=== PATIENT | female | born 1970 | race Caucasian/White ===

== ENCOUNTER → 2017-11-27 08:33 | Outpatient (CLI) | payer BC, SELFPAY ==
--- NOTE | 2017-11-27 08:39 | US_ITS ---
US thyroid HISTORY: Tender area in the mid neck. History of tongue cancer ITS.REASON: NECK PAIN, HX THROAT CA ORDERING PHYSICIAN: Bebo Deutsch MD PATIENT AGE: 47 years COMPARISON: None FINDINGS: Right lobe: 4.1 x 1 x 1.5 cm. Homogeneous echogenicity. No nodules apparent. Left lobe: 3.9 x 1.3 x 1.5 cm. Homogeneous echogenicity. No mass or nodule Isthmus: The isthmus itself has an unremarkable appearance. There is a cystic anterior to the left aspect of the isthmus of the thyroid gland. This measures approximately 4 x 7 mm and is of questionable clinical significance and etiology. IMPRESSION: 1. Small cystic area along the left para median area of the isthmus at 7 x 4 mm of uncertain etiology and clinical significance. 2. Otherwise negative thyroid ultrasound
== END ==
PROVIDERS: Family Provider Family Medicine; PCP Family Medicine; Visit Provider Family Medicine
DX: M54.2 Cervicalgia (principal); Z85.810 Personal history of malignant neoplasm of tongue
CPT/HCPCS: 76536

== ENCOUNTER → 2018-02-09 10:47 | Outpatient (CLI) | payer BC, SELFPAY ==
--- NOTE | 2018-02-09 10:56 | XR_ITS ---
DEXA SCAN.-BONE DENSITY STUDY FOREARM AND HIPS HISTORY: Postmenopausal female. 47-year-old . Hypothyroidism. Left ovary removed. Low calcium intake. Taking Synthroid TECHNIQUE: DEXA scan hip and lumbar spine The most complete data summary and color graphic presentation of the today's ( and any prior ) DEXA findings are available in PACS. Definition and treatment guidelines included. COMPARISON: None listed Lumbar spine not utilized due to posterior fusion., Extensive metal FOREARM: low range of normal values overall Distal radiusUD at the metaphysis:. Normal T score 1.4; BMD 0.534. Distal 33% radius: T-score -0.8. Low normal reflecting BMD 0.819 Radius total, overall with T score 0.5 and BMD 0.713 . HIPS: Femoral neck density is best predictor of hip fracture risk . . Both femoral neck with normal bone density Right femoral neck demonstrates the lowest T score -0.9 with BMD0.918 g/cm sq . . Left femoral neck T score -0.8 Averaging all regions of the hips yields today's Hip Mean T score -0.2 with BMD0.977 g/cm sq . = Normal density -------IMPRESSION 1. FOREARM: Normal overall bone density radius . Overall radius with normal T-score -0.5 Distal radiusUD at the metaphysis and distal third of the radius normal as well 2. HIPS: Normal bone density. Overall T score -0.2. Lowest right femoral neck T score -0.9 Note:. Technologist did not utilize lumbar spine due to history of extensive spinal fusion.. WHO criteria for post-menopausal, Women: Normal: T-score at or above -1 SD Osteopenia: T-score between -1 and -2.5 SD Osteoporosis: T-score at or below -2.5 SD
== END ==
PROVIDERS: Family Provider Family Medicine; PCP Family Medicine; Visit Provider Family Medicine
DX: M85.80 Other specified disorders of bone density and structure, unspecified site (principal)
CPT/HCPCS: 77080

== ENCOUNTER → 2018-07-05 16:37 | Outpatient (CLI) | payer BC, SELFPAY ==
--- NOTE | 2018-07-05 16:45 | XR_ITS ---
EXAM: XR cervical spine 5V HISTORY: Neck pain, left arm numbness and healing ITS.REASON: PARESTHESIA OF LEFT UPPER EXTREMITY ORDERING PHYSICIAN: Bebo Deutsch MD PATIENT AGE: 48 years COMPARISON: None FINDINGS: There is mild reversal of the mid cervical lordosis which could be due to patient positioning or muscle spasm. There is 2 mm anterolisthesis of C4 on C5. Degenerative disc disease is present at C5-C6. Foraminal narrowing is noted on the right at C3-C4 and on the left at C4-C5. Multiple surgical clips are present within the neck on both sides. Interpedicular screws are present with connecting rods in the upper thoracic spine. No fracture or dislocation. No lytic or blastic change. IMPRESSION: Degenerative disc disease at C5-C6 with foraminal narrowing on the right at C3-C4 and on the left at C4-C5 Other nonacute findings as described above
== END ==
PROVIDERS: PCP Family Medicine; Visit Provider Family Medicine
DX: R20.2 Paresthesia of skin (principal)
CPT/HCPCS: 72050

== ENCOUNTER → 2018-09-12 10:20 | Outpatient (CLI) | payer BC, SELFPAY ==
--- NOTE | 2018-09-12 10:25 | NVE_ITS ---
Venous Exam Indications: 782.0 Disturbance of skin sensation. 729.5 Pain in limb. IMPRESSIONS No evidence of deep or superficial vein thrombosis involving the veins of the left upper extremity Left upper extremity venous duplex. Doppler flow study including spectral analysis, color and eng scale imaging. Tables: Venous flow and imaging: + + + Location Flow properties + + + Left internal jugular Normal phasicity; spontaneous; compressible + + + Left subclavian Normal phasicity; spontaneous; normal augmentation; compressible + + + Left axillary Normal phasicity; spontaneous; normal augmentation; compressible + + + Left brachial Normal phasicity; spontaneous; normal augmentation; compressible + + + Left cephalic Normal phasicity; spontaneous; normal augmentation; compressible + + + Left basilic Normal phasicity; spontaneous; normal augmentation; compressible + + + Left radial Compressible + + + Left ulnar Compressible + + + Right subclavian Normal phasicity; spontaneous; normal augmentation; compressible + + + (Report amended ) Electronically signed by: Lucio Hoffmann [id number]
== END ==
PROVIDERS: PCP Family Medicine; Visit Provider Family Medicine
DX: R20.2 Paresthesia of skin (principal)
CPT/HCPCS: 93971

== ENCOUNTER → 2019-06-28 14:06 | Outpatient (CLI) | payer BC, SELFPAY ==
--- NOTE | 2019-06-28 14:14 | CT_ITS ---
PROCEDURE: CT HEAD/BRAIN WO/W CON CLINICAL INDICATION: Dysphagia, history of oral pharyngeal cancer, evaluate for possible metastatic disease COMPARISON: No exams were available for comparison TECHNIQUE: IV Contrast: 100ML OPITRAY 320 Axial images obtained. All CT scans at the facility use one or more dose reduction, viz: automated exposure control, ma/kV adjustment per patient size (including targeted exams where dose is matched to indication, i.e. head), or iterative reconstruction technique. FINDINGS: No midline shift, mass effect, intracranial hemorrhage, hydrocephalus, or extra-axial fluid collection is evident. No enhancing lesions are evident. The the the calvarium has an unremarkable appearance. No mastoid effusion no sinus air-fluid level IMPRESSION: Negative CT head without and with contrast. No evidence of metastatic disease Dictated by: Lucio Hoffmann MD 06/28/2019 16:53 Electronically signed by Lucio Hoffmann MD in [facility] 06/28/2019 16:53
--- NOTE | 2019-06-28 14:14 | CT_ITS ---
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 All CT scans at the facility use one or more dose reduction, viz: automated exposure control, ma/kV adjustment per patient size (including targeted exams where dose is matched to indication, i.e. head), or iterative reconstruction technique. FINDINGS: There are no previous exams available for comparison. There is given history of the oral pharyngeal cancer but no previous exams available. The visualized sinuses, globes, and nasopharynx have an unremarkable appearance. There are surgical clips along the neck on both sides. There is asymmetric prominence of the soft tissues along the roof of the mouth on the right and could actually be partial volume averaging from prominence of the soft tissues of the tongue at this area as suggested on the coronal reformatted images. Please correlate with physical exam and patient's surgical history. There are scattered surgical clips throughout the neck. The uvula, epiglottis, glottic region, thyroid gland, and parotids are unremarkable. Surgical clips are present in the submandibular regions. It appears that the submandibular glands have been removed. No dominant cervical adenopathy is evident. There is scattered small cervical lymph nodes on both sides which are nonspecific. Postsurgical changes of the upper thoracic spine with artifact from metallic hardware. IMPRESSION: 1. Postsurgical changes of the as described above with multiple surgical clips present. Submandibular glands are not visualized and presumed to have been removed. 2. Asymmetric prominence of the right aspect of the tongue which could be asymmetric prominence of the tongue on the right or prior surgery of the tongue on the left. Please correlate with surgical history and direct visualization. 3. Scattered small cervical nodes but no dominant adenopathy or other significant anomaly Dictated by: Lucio Hoffmann MD 06/28/2019 16:59 Electronically signed by Lucio Hoffmann MD in [facility] 06/29/2019 08:30
== END ==
PROVIDERS: PCP Family Medicine; Visit Provider Nurse Practitioner
DX: J02.9 Acute pharyngitis, unspecified (principal); R13.10 Dysphagia, unspecified; Z85.819 Personal history of malignant neoplasm of unspecified site of lip, oral cavity, and pharynx
CPT/HCPCS: 70470; 70491; Q9967

== ENCOUNTER → 2019-11-05 09:37 | Outpatient (CLI) | payer BC, SELFPAY ==
--- NOTE | 2019-11-05 09:37 | US_ITS ---
PROCEDURE: US SOFT TISSUE HEAD AND NECK CLINICAL INDICATION: posterior neck lesion Palpable abnormality at the posterior on the left COMPARISON: CT SOFT TISSUE NECK W CON from 06/28/2019 FINDINGS: There is an oval area hypoechogenicity in the subcutaneous tissues in the left neck corresponding to the palpable abnormality which measures 1.9 by 0.5 by 2.6 cm. This is well-circumscribed and may represent an elongated lymph node. No other significant anomalies are evident. IMPRESSION: Hypoechoic nodule corresponding to the palpable abnormality as described above which may represent an elongated lymph Dictated by: Lucio Hoffmann MD 11/05/2019 13:53 Electronically signed by Lucio Hoffmann MD in [facility] 11/05/2019 13:53
== END ==
PROVIDERS: PCP Family Medicine; Visit Provider Surgery
DX: L98.9 Disorder of the skin and subcutaneous tissue, unspecified (principal)
CPT/HCPCS: 76536

== ENCOUNTER → 2020-02-04 12:04 | Outpatient (CLI) | payer BC, SELFPAY ==
[2020-02-04 20:13] LABS: Coronavirus 19 IgG Antibody Negative (Negative)
[2020-02-04 20:14] LABS: Coronavirus 19 IgM Antibody Negative (Negative)
== END ==
PROVIDERS: Visit Provider Surgery
DX: Z01.84 Encounter for antibody response examination (principal)
CPT/HCPCS: 36415; 86328

== ENCOUNTER 2020-02-05 07:29 | Day surgery (SDC) | payer BC, SELFPAY ==
--- NOTE | 2020-02-03 12:02 | SUR.PREOP ---
02/03/2020 @ 1200--PHONE CALL MADE TO PATIENT. PATIENT UNDERSTANDS THAT LAB WORK AND COVID TESTING NEEDS TO BE COMPLETED @ 0900 ON 02/04/2020. PATIENT UNDERSTANDS IF LAB WORK AND COVID-19 TESTS ARE NOT COMPLETED BY 12PM ON THAT DATE, THE SURGERY SCHEDULED WILL BE CANCELLED AND RESCHEDULED FOR ANOTHER TIME.
[2020-02-04 09:02] VITALS: BMI 36.6
[2020-02-05] VITALS (8 sets, daily range): BP systolic 109–139; BP diastolic 63–85; PULSE 61–86; RESP 14–18; TEMP 36.2–36.6; O2SAT 96–100
--- NOTE | 2020-02-05 08:10 | P.PN_ITS ---
[facility] Anesthesia Checklist - Patient Identification Patient Identification: Arm Band - Structural Data Admitted From: Home Planned Operative Procedure/s: excision neck lipoma Consent for Planned Operative Procedure(s) Verified: Yes Verified Documents: Surgical Consent, History and Physical - NPO Status Verified Time NPO: 00:00 - Additional verifications Anesthesia Reactions: No (slow to wake, n/v) Hx Blood Transfusions: Yes Blood Transfusion Reaction: No - Airway Assessment C-Spine Mobility Assessed: Yes (mp2) TMJ Mobility Assessed: Yes Dentition: Good Dentition - Neurological Assessment Level of Consciousness: Awake, Alert - Anesthesia Plan Anesthesia Risk discussed: Yes ASA Class: II Anesthesia Type: General [facility] History I have reviewed the patient's past medical history: Yes Medical History: Reports:: Asthma, Cancer (tongue), Lung Disease Denies:: Diabetes Mellitus Type 1, Diabetes Mellitus Type 2, Hypertension, Internal Pacemaker, MRSA, Seizures *Have you ever received a pneumonia vaccine?: No *Have you received a flu vaccine this season?: Yes Other Medical History: Reports: Hypothyroidism, Other. Denies: Blood Transfusion Reaction Anesthesia experience/problems:: ponv, slow to wake Laterality Cases: Right: Arthroscopy Knee, Arthroscopy Shoulder, Bilateral: Tonsillectomy Other Surgeries: Yes: Cancer Surgery, Colonoscopy, Hysterectomy-Total, Hysterectomy-Partial, Tubal Ligation, Other. No: Pacemaker Amputation: No Fractures: No - *Social History Educational Level: Completed Graduate School Smoking Status: Never smoker Alcohol Intake: never Alcohol Intake Frequency:: other Substance Use Type: denies use *Occupational Status:: employed Housing: house Household Members: spouse *Travel in the last 8 weeks: None Family Hx:: Unable to obtain
--- NOTE | 2020-02-05 09:33 | HMH.OPNOTE ---
Date of procedure: 02/05/20 Pre-op Diagnosis:: Lipoma cervicothoracic neck area Post-op Diagnosis:: Same Procedure performed:: Excision of deep lipoma from left cervicothoracic region (excisional length 3.5 cm) with intermediate complexity closure Surgeon:: Armen Kaba MD PERSONAL INJURY PARALEGAL:: Kayden Carl Anesthesia: LMA Estimated blood loss (mL): 5 Clinical Note:: Patient presents for removal of lipoma from the left cervicothoracic neck region. I saw her as a referral from Dr. Everett for possible lipoma on the back of the neck. Patient states that this has been present for an undetermined amount of time and relatively asymptomatic. However, complicating factor is that she had a history of squamous cell carcinoma of the tongue and underwent resection as well as left radical neck resection 3 years ago at [facility]. I had her undergo ultrasound of the area and this reveals findings less consistent with a lipoma but more consistent with elongated lymph node . The area is located in the left of the midline at the upper thoracic area. Given her history and findings on sonogram were consistent with an elongated lymph node I had her follow-up with her head neck surgeon first as she had an appointment several days after my last appointment. She did obtain copies of her ultrasound report and images. She states that he was not terribly concerned with this area and felt it was more of a potential lipoma. Operative findings:: Consistent with subcutaneous benign lipoma Operative note:: Patient was taken to the operating room. She was positioned in a supine position. General anesthesia was induced. She was then repositioned in right lateral position. The area was prepped and draped. Skin was marked with a skin marker. Skin incision was made using #15 scalpel blade. Dissection was carried down through deep dermis and superficial subcutaneous tissues using electrocautery. Well-circumscribed lobulated fat lobule consistent with benign lipoma was encountered. This was somewhat elongated. Using Metzenbaum dissection it was dissected free from surrounding tissues. It was removed in somewhat of a piecemeal fashion but in its entirety and sent off as specimen. Hemostasis was achieved with electrocautery. Local anesthetic was infiltrated. Deep dermal tissues were closed with interrupted 3-0 Vicryl sutures. Skin was closed with 4-0 Monocryl in a subcuticular fashion. Occlusive dressing was applied. Condition: stable Disposition: PACU Specimens:: Lipoma Complications:: None immediately apparent
--- NOTE | 2020-02-05 09:37 | P.PN_ITS ---
[facility] Anesthesia Record Part I Intake, IV Amount: 800 Estimated blood loss (mL): 10 Urine output (mL): 0 Blood Pressure: 134/72 SaO2: 97 Pulse Rate: 69 Respiratory Rate: 16 Temperature: 97.2 F Patient is:: Drowsy, Stable Stable to PACU at:: 09:35
[2020-02-06 10:19] VITALS: BP 139/74; PULSE 84; TEMP 36.5
--- NOTE | 2020-02-06 10:19 | P.PN_ITS ---
[facility] Anesthesia Record Part II Discharge Time: 09:56 Destination: Surgical Day Care (OP Surgery) PACU nurse assessment reviewed?: Yes Patient Condition:: Good Anesthesia Complications:: None Swallowing reflex intact?: Yes Cyanosis?: No Blood Pressure: 139/74 Pulse Rate: 84 Temperature: 97.7 F Mental Status: Alert & Oriented Pain level:: 0 Nausea and/or vomitting:: None Intake, IV Amount: 0
== END 2020-02-05 10:34 | disposition home or self-care (01) ==
PROVIDERS: PCP Family Medicine; Visit Provider Surgery
PROC: (CPT 11424; principal; 2020-02-05 09:00)
DX: D17.0 Benign lipomatous neoplasm of skin and subcutaneous tissue of head, face and neck (principal); Z85.810 Personal history of malignant neoplasm of tongue; Z88.5 Allergy status to narcotic agent; Z88.0 Allergy status to penicillin; J45.909 Unspecified asthma, uncomplicated; E03.9 Hypothyroidism, unspecified; Z90.89 Acquired absence of other organs; Z87.39 Personal history of other diseases of the musculoskeletal system and connective tissue; Z90.710 Acquired absence of both cervix and uterus; Z82.49 Family history of ischemic heart disease and other diseases of the circulatory system; Z80.9 Family history of malignant neoplasm, unspecified
CPT/HCPCS: 11424; 12041; 96374

== ENCOUNTER → 2020-05-13 14:25 | Outpatient (CLI) | payer BC, SELFPAY ==
--- NOTE | 2020-05-13 | US_ITS ---
PROCEDURE: US EXTREMITY LT LIMITED CLINICAL INDICATION: AXILLARY LYMPHADENOPATHY COMPARISON: US US EXTREMITY RT LIMITED from 05/13/2020 FINDINGS: Ultrasound performed of the left axilla. There are a few small nodes present in the axilla measuring 12 mm and 17 mm. The mantle of the lymph node is thin. No abnormal fluid collection. IMPRESSION: Nonspecific small left axillary lymph nodes Dictated by: Lucio Hoffmann MD 05/13/2020 15:55 Lucio Hoffmann MD in [place] 05/13/2020 15:55
--- NOTE | 2020-05-13 | US_ITS ---
PROCEDURE: US EXTREMITY RT LIMITED CLINICAL INDICATION: AXILLARY LYMPHADENOPATHY History of tongue cancer COMPARISON: No exams were available for comparison FINDINGS: Small nodes are present in the right axilla. A 5 mm node is present. There is a fullness in the right axillary region which is reported. This does not correspond to an enlarged lymph node that may represent fatty tissue. No abnormal fluid collections. IMPRESSION: 5 mm node in the axilla demonstrated. No obvious adenopathy. Dictated by: Lucio Hoffmann MD 05/13/2020 16:03 Lucio Hoffmann MD in [place] 05/13/2020 16:03
== END ==
PROVIDERS: PCP Family Medicine; Visit Provider Nurse Practitioner
DX: R59.0 Localized enlarged lymph nodes (principal)
CPT/HCPCS: 76882

== ENCOUNTER → 2020-05-15 13:28 | Outpatient (CLI) | payer BC, SELFPAY ==
--- NOTE | 2020-05-15 13:29 | CA_ITS ---
APPROVED REPORT EXAM: Comprehensive 2D, Doppler, and color-flow Echocardiogram Crystal Cutter: Selene Ambrose RDCS Ht: 5 ft 2 in Wt: 213lbs BSA: 1.96 BP: 119/77 mmHg Indications: ABN EKG,PRE OP EVAL,SOA 2D Dimensions LVOT 2.10 cm (M/F) 1.5-2.5 M-Mode Dimensions RVDd 2.44 cm (0.9-2.6) LVDd 4.87 cm (3.5-5.7) LVDs 3.43 cm (3.5-5.7) IVSd 0.69 cm (0.6-1.1) PWd 0.76 cm (0.6-1.1) EF (Teich) 56.40% FS 29.60% EDV (Teich) 111.20 mL ESV (Teich) 48.50 mL LV Diastology E/A Ratio 1.33 Mitral Valve MV A Velocity 65.00 (40-130 cm/s) Left Ventricle Left atrium is normal size, left ventricle is normal size, there is no concentric left ventricular hypertrophy, visually estimated ejection fraction 55% with no regional wall motion abnormality. Diastolic parameters are within normal range. Right Ventricle Right atrium and right ventricle are normal size and contractility. Aortic Valve Aortic valve is grossly normal, there is no aortic stenosis or aortic insufficiency. Mitral Valve Mitral valve is grossly normal, there is no mitral stenosis, there is mild mitral regurgitation. Tricuspid Valve Tricuspid valve grossly normal, there is trace tricuspid regurgitation, tricuspid regurgitation jet velocity is inadequate for calculation of the right ventricular systolic pressure. Pulmonic Valve Pulmonic valve is poorly visualized. Great Vessels Aortic root is normal size. Pericardium No significant pericardial effusion noted. Conclusion 1. Normal left ventricular size, preserved left ventricular systolic function, visually estimated ejection fraction 55% with no regional wall motion abnormality, diastolic parameters within normal range. 2. Mild mitral and trace tricuspid regurgitation. 3. No significant pericardial effusion noted. Electronically signed by : Larry Good, 05/15/2020 14:03:43
--- NOTE | 2020-05-15 13:29 | CA_ITS ---
APPROVED REPORT Exam: Exercise Treadmill Technologist: Ana Mccann, Ht: 5 ft 2 in Wt: 213 lbs BSA: 1.96 m2 HR: 71 bpm BP: 129/61 mmHg Rhythm: SINUS RHYTHM Medical History Medications: Levothyroxine,,,,, Albuterol,,,,, LoraTADINE,,,,, DicyCLOMINE,,,,, Singulair,,,,, Methocarbamol,,,,, RHINOCORT,,,,, Cardiac Risk Factors: FHX of CAD Stress Test Details Test: Michael HR Resting HR: 75 bpm Max Heart Rate (APMHR): 170 bpm Max HR Achieved: 149 bpm Target HR (85% APMHR): 144 bpm % of APMHR: 87 Recovery HR: 134 bpm BP Resting BP: 129.0/61.0 mmHg Max BP: 190.0/82.0 mmHg Recovery BP: 190.0/82.0 mmHg ECG Resting ECG: SINUS RHYTHM Clinical Exercise duration: 06:25 min Highest Stage Achieved: Exercise capacity: 7.0 METs Stress ECG Conclusion MICHAEL PROTOCOL COMPLETED. MAX HEART RATE 149 BPM WHICH IS 88% OF PM FOR AGE. MAX BP 190/82. METS = 7.0. TEST STOPPED DUE TO SHORTNESS OF BREATH. NO CHEST PAIN. SHORTNESS OF BREATH AT PEAK EXERCISE. NO ECTOPY. LESS THAN 1.5MM ST DEPRESSION. GXT ONLY. AVERAGE EXERCISE CAPACITY. APPROPRIATE BP RESPONSE. NO ECTOPY. NO CHEST PAIN. Electronically signed by : Larry Good, 05/18/2020 22:25:43
== END ==
PROVIDERS: PCP Family Medicine; Visit Provider Urology
DX: Z01.810 Encounter for preprocedural cardiovascular examination (principal); R94.31 Abnormal electrocardiogram [ECG] [EKG]; R00.2 Palpitations; R06.00 Dyspnea, unspecified; R60.0 Localized edema
CPT/HCPCS: 93017; 93306

== ENCOUNTER → 2020-11-13 19:14 | Outpatient (CLI) | payer BC, SELFPAY | PROVIDERS: PCP Family Medicine; Visit Provider Family Medicine | DX: I49.9 Cardiac arrhythmia, unspecified (principal) | CPT/HCPCS: 93225; 93226 ==

== ENCOUNTER → 2020-11-17 13:38 | Outpatient (CLI) | payer BC, SELFPAY ==
--- NOTE | 2020-11-17 | US_ITS ---
APPROVED REPORT Exam Type: Ankle to Brachial Index Associate Justice: RT Enrrique(R) Indications Claudication: Right Rest Pain: Right Pressures/Indices Right Indices Left Indices Brachial 129.00 mmHg Brachial 130.00 mmHg Low Thigh 139.00 mmHg 1.07 Low Thigh 140.00 mmHg 1.08 Calf 140.00 mmHg 1.08 Calf 139.00 mmHg 1.07 Ankle(PT) 160.00 mmHg 1.23 Ankle(PT) 152.00 mmHg 1.17 Ankle(DP) 143.00 mmHg 1.10 Ankle(DP) 144.00 mmHg 1.11 Digit 120.00 mmHg 0.92 Digit 79.00 mmHg 0.61 Findings RT LIZ=1.2 LT TBI=1.2 RT TBI=0.9 LT TBI=0.6 Normal pulses Normal waveforms Conclusion RT LIZ=1.2 LT TBI=1.2 RT TBI=0.9 LT TBI=0.6 Normal pulses Normal waveforms Electronically signed by : Lucio Hoffmann MD 11/17/2020 16:37:26
== END ==
PROVIDERS: PCP Family Medicine; Visit Provider Family Medicine
DX: R60.0 Localized edema (principal); I70.211 Atherosclerosis of native arteries of extremities with intermittent claudication, right leg
CPT/HCPCS: 93923

== ENCOUNTER → 2020-11-26 17:19 | Outpatient (CLI) | payer BC, SELFPAY | PROVIDERS: PCP Family Medicine; Visit Provider Urology | DX: G47.33 Obstructive sleep apnea (adult) (pediatric) (principal) | CPT/HCPCS: G0399 ==

== ENCOUNTER 2021-01-14 08:00 | Outpatient (RCR) | payer BC, SELFPAY ==
--- NOTE | 2020-11-25 15:53 | HMH.PTOPWND ---
Rehab Outpt Wound Evaluation Rehab OP Wound Evaluation Start: 11/25/20 15:20 Freq: Status: Active Protocol: Document 11/25/20 15:44 BERTO (Rec: 11/25/20 15:52 PHORNE [id number]) Electronically Signed By Kiko Fulton, PT 11/25/20 15:44 Subjective/History History History Pt is 50 yowf who presents with c/o LE jayla, R > L, x 1-2 yrs overall and worse x ~ 2-3 mos. She reports some pain in B LE, worse in the lower legs . She also reports increased tenderness to palpation worse in B gaitor area. She has extensive surgical hx with T4- L5 PLIF due to scoliosis, cervicothoracic lipoma removal , 42 neck lymph nodes removed due to oropharyngeal cancer, ELMER, and one oophorectomy. She reports intermittent numbness /tingling in the R great toe. Subjective Subjective Pain 3/10 in lower legs. 2/4 tenderness to palpation noted in B gaitor area of lower legs . Lymphedema Eval Classification of Lymphedema Secondary Lymphedema Yes: multiple surgeries Stemmer's sign Stemmer's Sign no Stage of Lymphedema Lymphedema stages Stage II (Pitting edema, increased fibrosis w/ decreased pitting) Skin Changes Dry Skin Yes Skin Folds Yes Redness Yes Other Changes Yes Pain Scale Pain Scale (0-10) 3 Radiation Therapy Has received radiation therapy no Chemo Therapy Has received chemo therapy no Affected Extremities Areas Affected by Lymphedema/Edema Abdomen,Right Lower Extremity, Left Lower Extremity Manual Lymphatic Drainage Treatment Area MLD Treatment Area Abdomen,Right Lower Extremity, Left Lower Extremity Wound Problems/Impairments Impairments Problems/Impairmments Palpation Tenderness,Impaired Endurance,Impaired Walking, Impaired Standing,Impaired Recreational Activities, Increased Edema,Lymphedema Present,Subjective C/O Pain, Impaired Self Care/Self Management Prognosis Rehab Potential
--- NOTE | 2020-12-28 16:22 | HMH.RHREAS ---
Rehab Reassessment Rehab OP Re-assessment Start: 12/28/20 16:18 Freq: Status: Active Protocol: Document 12/28/20 16:19 BERTO (Rec: 12/28/20 16:22 PHOANGELA [id number]) Electronically Signed By Kiko Fulton, PT 12/28/20 16:19 Rehab Re-assessment Subjective Subjective Pt reports, I don't have as much pain and I have a lot less tenderness in both of my legs. Objective Objective Notes Cirucmferential measurements: R LE total is -6.0 cm since initial eval. L LE total is -7.0 cm since initial eval. Assessment Progress Assessment Progressing as Expected Assessment Notes Edema less hard, more doughy at this time which denotes decreased fibrotic edema. Much less pain with palpation throughout B lower legs. Edema continues to improve steadily . Patient goals met ST,2,3,4 Goals Not Met LT,2,3,4,5,6,7 Revised Goals none Plan Plan Continue per initial POC. Frequency of Therapy 2 x/wk Duration of therapy 8 wks Time and Billing Re-Eval Time 15 Re-Eval Billing Units 1 PHYSICIAN CERTIFICATION: I certify the specified therapy services for Eleonora Hernandez are required, authorized, and reviewed every 30 days.
== END 2021-01-14 08:05 | disposition home or self-care (01) ==
LOC: PT 08:00
PROVIDERS: PCP Family Medicine; Visit Provider Urology
DX: I89.0 Lymphedema, not elsewhere classified (principal); R60.0 Localized edema; M79.604 Pain in right leg
CPT/HCPCS: 97140; 97162; 97164

== ENCOUNTER → 2021-03-03 12:55 | Outpatient (CLI) | payer BC, SELFPAY ==
--- NOTE | 2021-03-03 12:58 | FL_ITS ---
PROCEDURE: FL BARIUM SWALLOW MODIFIED CLINICAL INDICATION: TOUNGE CANCER COMPARISON: No exams were available for comparison TECHNIQUE: Patient administered varying consistencies of barium contrast, while viewed in lateral position under real-time fluoroscopy with cine recording. FLUOROSCOPY TIME:2 minutes and 11 seconds The study was performed in conjunction with speech pathologist. Please see that report & recommendations. FINDINGS: Patient was given varying consistencies of barium. Multiple surgical clips are present in the neck. No impairment apparent. No aspiration or penetration. IMPRESSION: Unremarkable modified barium swallow. Please see speech pathologist report and recommendations. Dictated by: Lucio Hoffmann MD 03/04/2021 10:05 Lucio Hoffmann MD in [place] 03/04/2021 10:05
--- NOTE | 2021-03-03 14:23 | HMH.SLMBS2 ---
Speech & Language Evaluation Speech/Language Mod Barium Swallow Start: 03/03/21 14:17 Freq: once Status: Complete Protocol: Document 03/03/21 14:17 SHALINI (Rec: 03/03/21 14:22 SHALINI [id number]) General Information General Current Food Consistancy Regular,Thin Liquids Dentition Good Dentition Oxygen Status Room Air Facial Symmetry Symmetrical Patient Orientation Person,Place,Time,Situation Ability to Follow Directions Excellent Communication Ability No Impairment MBS Recommendations Diet Dietary Recommendations Regular,Thin Liquids Treatment/Strategies Strategy/Precaution Recommend Sitting Upright (90 deg),Small Bites and Sips,Alternate Liquids/Solids Referrals/Other Recommended Referrals GI Consult Other Recommendations Recommended GI consult due to Ms. Hernandez reporting she often has food get stuck . She has a history of reflux but she is regurgitating her food and drinks over the last couple of months. Mod Barium Swallow Impressions Summary and Impressions Oral Phase Impression No Impairment (WFL) Oral Phase Summary Ms. Hernandez was given the following consistencies: thins via spoon, straw, and open cup, pudding, pureed, mechanical soft, regular, mixed, and pill with thin wash . No oral phase impairments noted. Pharyngeal Phase Impression No Impairment (WFL) Pharyngeal Phase Summary No pharyngeal phase impairments noted. Speech/Language MBS Assessment/Goals/Plan Assessment Date of Evaluation: 03/03/21 Evaluation Type Initial Certification Assessment/Problems Dysphagia Does Patient Qualify for Service No Qualify/Failure Comment No overt signs or symptoms of dysphagia noted in oral or pharyngeal phase of swallowing . Plan Pt/Guardian verbally ack understanding Yes of dx/prognosis/goals G -code Required No Mod Barium Swallow Setup Exam Setup Radiologist Lucio Hoffmann Level of Consciousness Awake,Alert,Appropriate, Follows Commands Position (degrees) 90 Mod Barium Swallow-Lat View Textures Lateral View Food Presentation Thin Liquid via Spoon,Thin
== END ==
PROVIDERS: PCP Family Medicine; Visit Provider Family Medicine
DX: R13.10 Dysphagia, unspecified (principal)
CPT/HCPCS: 70371; 92611

== ENCOUNTER → 2021-05-20 13:44 | Outpatient (CLI) | payer BC, SELFPAY ==
--- NOTE | 2021-05-20 13:47 | CT_ITS ---
Procedure: CT ANGIO NECK CT CT ANGIO HEAD CLINICAL HISTORY: HX OF OROPHARYNGEAL CANCER Numbness and tingling in bilateral arms and COMPARISON: CT CT SOFT TISSUE NECK W CON from 06/28/[address] ANGIO HEAD from 05/20/2021 TECHNIQUE: IV Contrast: 100ml Isovue 370 Axial images obtained with sagittal and coronal reformats. All CT scans at the facility use one or more dose reduction, viz: automated exposure control, ma/kV adjustment per patient size (including targeted exams where dose is matched to indication, i.e. head), or iterative reconstruction technique. FINDINGS: CTA neck: The aortic arch and great vessels have an unremarkable appearance. No carotid for vertebral stenosis significant plaque ulceration or dissection. CTA head: No aneurysm, AVM, major intracranial occlusive process or dissection evident. Vertebral basilar system has an unremarkable appearance. Lung apices are clear. Postsurgical changes are present in the neck as previously described. There are few scattered small cervical lymph nodes. No recurrence neck mass apparent. No enhancing brain lesions apparent. No midline shift or mass effect. No evidence of sinus thrombosis IMPRESSION: Negative CTA of the neck. Negative CTA of the head Dictated by: Lucio Hoffmann MD 05/21/2021 08:37 Lucio Hoffmann MD in [place] 05/21/2021 08:37
== END ==
PROVIDERS: PCP Family Medicine; Visit Provider Family Medicine
DX: Z85.818 Personal history of malignant neoplasm of other sites of lip, oral cavity, and pharynx (principal); R13.10 Dysphagia, unspecified
CPT/HCPCS: 70496; 70498; Q9967

== ENCOUNTER → 2021-06-02 09:46 | Outpatient (CLI) | payer BC, SELFPAY ==
--- NOTE | 2021-06-02 09:57 | MR_ITS ---
PROCEDURE: MR CERVICAL SPINE WO/W CON CLINICAL INDICATION: BILATERAL UPPER EXTREMITY NUMBNESS AND TINGLING COMPARISON: CT CT ANGIO NECK from 05/20/2021 TECHNIQUE: Standard multiplanar multiecho sequences are performed without and with contrast. 3-D MIP and myelographic images are also rendered and reviewed FINDINGS: Unremarkable craniocervical junction. C2-C3: Minimal central disc protrusion versus prominent posterior longitudinal ligament without impingement. Mild left foraminal narrowing. C3-C4: 3 mm anterolisthesis of C3 with mild bulging disc. There is a small right paracentral/foraminal disc osteophyte complex at the uncovertebral region causing mild right lateral recess narrowing and right-sided foraminal narrowing. Borderline canal stenosis at this level at 11 mm. Degenerative disc disease. C4-C5: 3 mm anterolisthesis of C4. Small broad-based left foraminal and lateral disc osteophyte complex causing severe left-sided foraminal narrowing. There is mild left lateral recess narrowing as well. Degenerative disc disease. C5-C6: 2 mm retrolisthesis of C5 with mild broad-based bulging disc. Mild bilateral foraminal narrowing from facet and uncovertebral hypertrophy. C6-C7: Minimal bulging disc. C7-T1: Unremarkable. In the upper thoracic spine there is a bulging disc at T2-T3 with 3 mm anterolisthesis of T2. Artifact is present from inter pedicular screws in the upper thoracic spine. No acute fracture or dislocation of the cervical spine. Post enhanced images are obtained showing no abnormal enhancement. The spinal cord has an unremarkable appearance. IMPRESSION: Multilevel cervical spondylosis with multilevel degenerative disc disease and disc osteophyte complexes with borderline canal stenosis. Please see above for detailed description at each level. Dictated by: Lucio Hoffmann MD 06/03/2021 18:17 Lucio Hoffmann MD in [place] 06/03/2021 18:17
== END ==
PROVIDERS: PCP Family Medicine; Visit Provider Family Medicine
DX: M50.30 Other cervical disc degeneration, unspecified cervical region (principal)
CPT/HCPCS: 72156; 76376; A9576

== ENCOUNTER → 2021-08-05 09:55 | Outpatient (CLI) | payer BC, SELFPAY ==
[2021-08-05 10:10] LABS: Basophils % 0.4 % (0.1-2.0); Eosinophils # 0.1 K/mm3 (0.0-0.4); Eosinophils % 1.2 % (0.1-12.0); Hematocrit 40.8 % (37.0-47.0); Hemoglobin 13.9 g/dL (12.2-16.2); Lymphocytes % 24.1 % (10-50); Mean Corpuscular Hemoglobin 31.3 pg (27.0-31.2); Mean Platelet Volume 7.6 fl (7.4-10.4); Monocytes # 0.4 K/mm3 (0.1-1.0); Monocytes % 5.2 % (1.7-9.3); Neutrophils # 5.7 K/mm3 (1.8-7.8); Neutrophils % 69.1 % (37.0-80.0); Platelet Count 318 K/mm3 (142-424); Red Blood Count 4.44 M/mm3 (4.20-5.40); Red Cell Distribution Width 13.1 % (11.5-17.5); White Blood Count 8.3 K/mm3 (4.8-10.8)
== END ==
PROVIDERS: Visit Provider Nurse Practitioner
DX: Z20.822 Contact with and (suspected) exposure to COVID-19 (principal)
CPT/HCPCS: 36415; 85025; C9803; U0003; U0005

== ENCOUNTER → 2021-08-09 16:10 | Outpatient (CLI) | payer BC, SELFPAY | PROVIDERS: PCP Family Medicine; Visit Provider Nurse Practitioner Family | DX: G47.33 Obstructive sleep apnea (adult) (pediatric) (principal) | CPT/HCPCS: 94762 ==

== ENCOUNTER → 2021-09-21 11:37 | Outpatient (CLI) | payer BC, SELFPAY | PROVIDERS: PCP Family Medicine; Visit Provider Nurse Practitioner | DX: U07.1 COVID-19 (principal) | CPT/HCPCS: C9803; U0003; U0005 ==

== ENCOUNTER → 2021-12-02 08:53 | Outpatient (CLI) | payer BC, SELFPAY ==
--- NOTE | 2021-12-02 08:56 | XR_ITS ---
FINAL REPORT TECHNIQUE: Bone mineral density was calculated of the lumbar spine and hip. CLINICAL HISTORY: .post menopausal, pt has metal in spine FINDINGS: Using the one third radius the bone mineral density of the spine is 0.618 g/cm2, corresponding to T-score of -1.3. Using the left hip, the bone mineral density of the femoral neck is 0.862 g/cm2, corresponding to a T-score of -0.7. NOTE: T-score: Standard deviation compared with peak bone mass of young adult mean. *Following the recommendations of the International Society of Bone densitometry, classification of hip BMD is based on the lower of two T-scores; total hip or femoral neck. IMPRESSION: Diminished bone mineral density of the lumbar spine and left hip consistent with osteopenia. Major osteoporotic fracture of 4.0% and hip fracture of 0.1% according to FRAX data. Reviewed, Interpreted and Dictated by Armen Miller III, MD Transcribed by Corinna Luis Authenticated by Armen Miller III, MD on 12/02/2021 11:11:20 AM [facility]
== END ==
PROVIDERS: PCP Family Medicine; Visit Provider Nurse Practitioner
DX: Z78.0 Asymptomatic menopausal state (principal)
CPT/HCPCS: 77080

== ENCOUNTER → 2022-01-07 11:14 | Outpatient (CLI) | payer BC, SELFPAY ==
--- NOTE | 2022-01-07 11:18 | CA_ITS ---
FINAL REPORT TECHNIQUE: Right lower extremity venous duplex was performed with augmentation and compression. CLINICAL HISTORY: Patient states she has lump behind her right knee that's been there for months but it is getting bigger and causing more discomfort. She states the lump is palpable. Denies trauma. FINDINGS: Proper flow is seen throughout the deep venous system. There is no evidence of deep venous thrombosis. IMPRESSION: No deep venous thrombosis. No evidence of Bell's cyst right popliteal. Reviewed, Interpreted and Dictated by Paul Espinoza MD Transcribed by Leatha Dahl Authenticated by Paul Espinoza MD on 01/07/2022 01:24:38 PM [facility]
== END ==
PROVIDERS: PCP Family Medicine; Visit Provider Nurse Practitioner
DX: M25.561 Pain in right knee (principal)
CPT/HCPCS: 93971

== ENCOUNTER → 2022-05-12 06:54 | Outpatient (CLI) | payer BC, SELFPAY ==
[2022-05-12 18:35] LABS: Adenovirus,PCR Not Detected (NotDetected); Bordetella Pertussis Not Detected (NotDetected); Chlamydophila Pneumoniae, PCR Not Detected (NotDetected); Coronavirus 19, PCR Not Detected (NotDetected); Coronavirus 229E Not Detected (NotDetected); Coronavirus NL63 Not Detected (NotDetected); Coronavirus OC43 Not Detected (NotDetected); Coronovirus HKU1,PCR Not Detected (NotDetected); Human Metapneumovirus Not Detected (NotDetected); Influenza A, PCR Not Detected (NotDetected); Influenza AH1, 2009 Not Detected (NotDetected); Influenza AH1, PCR Not Detected (NotDetected); Influenza AH3,PCR Not Detected (NotDetected); Influenza B, PCR Not Detected (NotDetected); Mycoplasma Pneumoniae, PCR Not Detected (NotDetected); Parainfluenza 1, PCR Not Detected (NotDetected); Parainfluenza 2, PCR Not Detected (NotDetected); Parainfluenza 3, PCR Not Detected (NotDetected); Parainfluenza 4, PCR Not Detected (NotDetected); Respiratory Syncytial Virus Not Detected (NotDetected); Rhinovirus/Enterovirus Not Detected (NotDetected)
[2022-05-12 18:48] LABS: Basophils # 0.1 K/mm3 (0-0.2); Eosinophils # 0.1 K/mm3 (0.0-0.4); Eosinophils % 0.8 % (0.1-12.0); Hematocrit 44.1 % (37.0-47.0); Hemoglobin 14.8 g/dL (12.2-16.2); Lymphocytes # 2.4 K/mm3 (0.7-4.5); Lymphocytes % 21.4 % (10-50); Mean Corpuscular HGB Conc 33.6 g/dL (31.8-35.4); Mean Corpuscular Hemoglobin 31.4 pg (27.0-31.2); Mean Corpuscular Volume 93.6 fl (81-99); Mean Platelet Volume 8.9 fl (7.4-10.4); Monocytes # 0.8 K/mm3 (0.1-1.0); Monocytes % 7.5 % (1.7-9.3); Neutrophils # 7.7 K/mm3 (1.8-7.8); Neutrophils % 69.4 % (37.0-80.0); Platelet Count 385 K/mm3 (142-424); Red Blood Count 4.71 M/mm3 (4.20-5.40); Red Cell Distribution Width 12.8 % (11.5-17.5); White Blood Count 11.1 K/mm3 (4.8-10.8)
== END ==
PROVIDERS: PCP Nurse Practitioner; Visit Provider Nurse Practitioner
DX: Z20.822 Contact with and (suspected) exposure to COVID-19 (principal); J06.9 Acute upper respiratory infection, unspecified
CPT/HCPCS: 85025; 87581; 87632; 87798; C9803; U0003; U0005

== ENCOUNTER → 2022-07-19 10:55 | Outpatient (CLI) | payer BC, SELFPAY ==
--- NOTE | 2022-07-19 14:03 | XR_ITS ---
FINAL REPORT CLINICAL HISTORY: ASTHMA FINDINGS: TWO-VIEW CHEST The heart size is normal. The mediastinum is normal. The lungs are clear. There is no pneumothorax. There is long segment posterior fusion hardware bridging the upper thoracic to upper lumbar spine. A right shoulder prosthesis is identified. IMPRESSION: No acute cardiopulmonary process. Reviewed, Interpreted and Dictated by Paul Espinoza MD Transcribed by Corinna Luis Authenticated and . [facility]
--- NOTE | 2022-07-19 14:25 | ECG_ITS ---
APPROVED REPORT Exam: Resting ECG HR:68 bpm ECG Measurements Heart Rate 68 AXES GA 139 P 43 QRSd 91 QRS -3 QT 386 T 61 QTc 403 Conclusion SINUS RHYTHM LOW QRS VOLTAGE IN PRECORDIAL LEADS [QRS DEFLECTION < 1.0 mV IN CHEST LEADS] BORDERLINE ECG UNCONFIRMED REPORT Electronically signed by : Juancarlos Arriola MD 07/19/2022 19:41:51
== END ==
PROVIDERS: PCP Family Medicine; Visit Provider Family Medicine
DX: Z01.818 Encounter for other preprocedural examination (principal)
CPT/HCPCS: 71046; 93005

== ENCOUNTER → 2022-11-26 09:43 | Outpatient (CLI) | payer BC, SELFPAY ==
[2022-11-26 11:13] LABS: Basophils # 0.1 K/mm3 (0-0.2); Basophils % 0.9 % (0.1-2.0); Eosinophils # 0.1 K/mm3 (0.0-0.4); Eosinophils % 0.9 % (0.1-12.0); Hematocrit 42.7 % (37.0-47.0); Hemoglobin 13.9 g/dL (12.2-16.2); Lymphocytes # 1.7 K/mm3 (0.7-4.5); Lymphocytes % 22.9 % (10-50); Mean Corpuscular HGB Conc 32.6 g/dL (31.8-35.4); Mean Corpuscular Hemoglobin 30.9 pg (27.0-31.2); Mean Corpuscular Volume 94.9 fl (81-99); Mean Platelet Volume 8.8 fl (7.4-10.4); Monocytes # 0.5 K/mm3 (0.1-1.0); Monocytes % 6.4 % (1.7-9.3); Neutrophils % 68.9 % (37.0-80.0); Platelet Count 326 K/mm3 (142-424); Red Cell Distribution Width 12.8 % (11.5-17.5); White Blood Count 7.3 K/mm3 (4.8-10.8)
[2022-11-26 11:47] LABS: Alanine Aminotransferase 24 U/L (12-78); Albumin Level 3.9 g/dl (3.5-5.0); Albumin/Globulin Ratio 1.6 (1.1-1.8); Alkaline Phosphatase 84 U/L (38-126); Anion Gap 10.3 mEq/L (5-15); Aspartate Amino Transferase 27 U/L (14-36); Bilirubin,Total 0.5 mg/dl (0.2-1.3); Blood Urea Nitrogen 18 mg/dl (7-17); Calcium 8.6 mg/dl (8.4-10.2); Carbon Dioxide 31 mmol/L (22.0-30.0); Chloride 102 mmol/L (98-107); Chol/HDL Ratio 2.4 (1-3.5); Cholesterol 167 mg/dl (140-200); Estimated Glomerular Filt Rate 88 ml/min (>60); GFR (African American) 106 ML/MIN (>60); Globulin 2.5 g/dL (1.3-3.2); Glucose 73 mg/dl (74-100); HDL Cholesterol 69 mg/dl (40-60); Potassium 4.3 mmoL/L (3.5-5.1); Sodium 139 mmol/L (136-145); Total Protein,Serum 6.4 g/dl (6.3-8.2); Triglycerides 96 mg/dl (30-150); VLDL Cholesterol 19 mg/dL (0-40)
[2022-11-26 11:49] LABS: 25-OH Vitamin D, Total 34.4 ng/mL (30-100)
[2022-11-26 11:59] LABS: Direct LDL Cholesterol 64.67 mg/dL (100-129)
[2022-11-26 12:04] LABS: Free T4 (Free Thyroxine) 1.13 ng/dl (0.78-2.19)
== END ==
PROVIDERS: PCP Family Medicine; Visit Provider Family Medicine
DX: E03.9 Hypothyroidism, unspecified (principal); E55.9 Vitamin D deficiency, unspecified; R53.83 Other fatigue
CPT/HCPCS: 36415; 80053; 80061; 82306; 84439; 84443; 85025

== ENCOUNTER 2024-01-08 12:42 | Outpatient (CLI) | payer BC, SELFPAY ==
--- NOTE | 2024-01-08 12:50 | XR_ITS ---
FINAL REPORT CLINICAL HISTORY: CHEST CONGESTION COMPARISON: 07/19/2022 FINDINGS: 2 views of the chest were obtained . The heart is normal in size. The mediastinum is within normal limits. The lungs are clear. There is no pneumothorax. Osseous structures demonstrate spinal rods throughout the thoracic spine. There are postoperative changes of bilateral shoulder arthroplasty and of the lower cervical spine. IMPRESSION: No acute cardiopulmonary process. Reviewed, Interpreted and Dictated by Armen Miller III, MD Transcribed by Citlaly Mcnulty Authenticated and [facility]
--- NOTE | 2024-01-08 13:10 | ECG_ITS ---
APPROVED REPORT Exam: Resting ECG HR:72 bpm ECG Measurements Heart Rate 72 AXES IL 138 P 68 QRSd 106 QRS 96 QT 375 T 53 QTc 399 Conclusion SINUS RHYTHM BORDERLINE RIGHT AXIS DEVIATION [QRS AXIS > 90] LOW QRS VOLTAGE [QRS DEFLECTION < 0.5/1.0 mV IN LIMB/CHEST LEADS] ABNORMAL ECG UNCONFIRMED REPORT Electronically signed by : Juancarlos Arriola MD 01/09/2024 21:36:43
== END 2024-01-08 23:59 | disposition home or self-care (01) ==
LOC: RAD 12:46
PROVIDERS: PCP Family Medicine; Visit Provider Family Medicine
DX: R09.89 Other specified symptoms and signs involving the circulatory and respiratory systems (principal)
CPT/HCPCS: 71046; 93005

== ENCOUNTER 2024-05-24 10:33 | Outpatient (CLI) | payer BC, SELFPAY ==
--- NOTE | 2024-05-24 10:38 | XR_ITS ---
FINAL REPORT TECHNIQUE: 3 views CLINICAL HISTORY: PAIN COMPARISON: None FINDINGS: AP, lateral, and swimmer's views of the thoracic spine were obtained. There is no prior exam for comparison. There is long segment thoracolumbar fusion with rods and orthopedic screws. Bilateral shoulder arthroplasties have been performed as well. Osteopenia is present. There is no acute fracture or malalignment. Vertebral body height is preserved. Paraspinal soft tissues are within normal limits. IMPRESSION: Long segment thoracolumbar fusion as described. No acute bony abnormality is identified. Reviewed, Interpreted and Dictated by Paul Espinoza MD Transcribed by Polly Muir Authenticated and . [facility]
== END 2024-05-24 23:59 | disposition home or self-care (01) ==
LOC: RAD 10:34
PROVIDERS: PCP Family Medicine; Visit Provider Family Medicine
DX: M54.6 Pain in thoracic spine (principal)
CPT/HCPCS: 72072

== ENCOUNTER 2024-10-09 12:56 | Outpatient (CLI) | payer BC, SELFPAY ==
--- NOTE | 2024-10-09 13:00 | XR_ITS ---
FINAL REPORT CLINICAL HISTORY: bronchitis FINDINGS: 2 views of the chest were obtained . The heart is normal in size. The mediastinum is within normal limits. The lungs are clear. There is no pneumothorax. Osseous structures demonstrate long segment fusion hardware of the thoracic and lumbar spine. There are bilateral shoulder prosthesis present. IMPRESSION: No acute cardiopulmonary process. Reviewed, Interpreted and Dictated by Paul Espinoza MD Transcribed by Citlaly Mcnulty Authenticated and [facility]
--- NOTE | 2024-10-09 13:00 | XR_ITS ---
FINAL REPORT CLINICAL HISTORY: left sided rib pain FINDINGS: LEFT RIBS 3 views were obtained. There is no acute fracture or dislocation. There is long segment fusion hardware throughout the thoracic and lumbar spine. Visualized joint spaces are normally aligned. Soft tissues are unremarkable. IMPRESSION: No acute bony abnormality. Reviewed, Interpreted and Dictated by Paul Espinoza MD Transcribed by Citlaly Mcnulty Authenticated and [facility]
== END 2024-10-09 23:59 | disposition home or self-care (01) ==
LOC: RAD 12:57
PROVIDERS: PCP Family Medicine; Visit Provider Family Medicine
DX: R07.89 Other chest pain (principal); J40 Bronchitis, not specified as acute or chronic
CPT/HCPCS: 71046; 71100

== ENCOUNTER 2024-11-22 08:54 | Outpatient (CLI) | payer BC, SELFPAY ==
[2024-11-22 09:24] LABS: Basophils # 0.1 K/mm3 (0-0.2); Basophils % 0.8 % (0.1-2.0); Eosinophils # 0.1 K/mm3 (0.0-0.4); Eosinophils % 1.5 % (0.1-12.0); Hematocrit 41.7 % (37.0-47.0); Hemoglobin 14.2 g/dL (12.2-16.2); Lymphocytes # 1.9 K/mm3 (0.7-4.5); Lymphocytes % 32.4 % (10-50); Mean Corpuscular HGB Conc 34.1 g/dL (31.8-35.4); Mean Corpuscular Hemoglobin 30.9 pg (27.0-31.2); Mean Corpuscular Volume 90.8 fl (81-99); Mean Platelet Volume 9.8 fl (7.4-10.4); Monocytes # 0.6 K/mm3 (0.1-1.0); Monocytes % 9.3 % (1.7-9.3); Neutrophils # 3.3 K/mm3 (1.8-7.8); Neutrophils % 55.2 % (37.0-80.0); Platelet Count 343 K/mm3 (142-424); Red Blood Count 4.59 M/mm3 (4.20-5.40); Red Cell Distribution Width 13.1 % (11.5-17.5)
[2024-11-22 09:50] LABS: Alanine Aminotransferase 38 U/L (12-78); Albumin Level 4.2 g/dl (3.5-5.0); Albumin/Globulin Ratio 1.9 (1.1-1.8); Alkaline Phosphatase 72 U/L (38-126); Aspartate Amino Transferase 34 U/L (14-36); Bilirubin,Total 0.4 mg/dl (0.2-1.3); Blood Urea Nitrogen 19 mg/dl (7-17); Calcium 9.6 mg/dl (8.4-10.2); Carbon Dioxide 30 mmol/L (22.0-30.0); Chloride 105 mmol/L (98-107); Estimated Glomerular Filt Rate 74 ml/min (>60); GFR (African American) 90 ML/MIN (>60); Globulin 2.2 g/dL (1.3-3.2); Glucose 71 mg/dl (74-100); Sodium 139 mmol/L (136-145); Total Protein,Serum 6.4 g/dl (6.3-8.2)
[2024-11-22 10:24] LABS: Thyroid Stimulating Hormone 1.39 uIU/mL (0.465-4.68)
[2024-11-22 10:43] LABS: Vitamin B12 896 pg/mL (239-931)
[2024-12-06 15:47] LABS: Narcolepsy DQA1*01:02 POSITIVE
[2024-12-06 15:48] LABS: Narcolepsy DQB1*06:02 POSITIVE
== END 2024-11-22 23:59 | disposition home or self-care (01) ==
LOC: LAB 08:55
PROVIDERS: PCP Family Medicine; Visit Provider Specialist
DX: G47.10 Hypersomnia, unspecified (principal); G47.19 Other hypersomnia; R40.0 Somnolence; G47.33 Obstructive sleep apnea (adult) (pediatric)
CPT/HCPCS: 36415; 80053; 81383; 82607; 82746; 84443; 85025

== ENCOUNTER 2025-02-26 11:32 | Outpatient (CLI) | payer BC, SELFPAY ==
--- OUTSIDE RECORDS SUMMARY | 2025-01-23 12:30 | XMS_ITS ---
Author Organization [facility] Address [address] [id number] Care Team Providers Care Relationship Mgr Name Role Phone Marguerite Sanjiv Primary Care Provider [phone] Leyla Deutsch Unavailable [phone] Brandee Ceron Unavailable [phone] Allergies Allergen (clinical drug ingredient) Drug/Non Drug Allergy documented on EMR Reaction Allergy Type Onset Date Status acetaminophen / hydrocodone HYDROcodone-Acetaminoph en itching Drug Allergy Active Medicinal cephalosporin and acting as antibacterial agent (FN) Cephalosporins Diarrhea Drug Allergy Active oxycodone oxyCODONE hives Drug Allergy Active Results Component Value Reference Range Notes CBC Fingerstick (in house) Reviewed date:01/29/2025 03:39:54 PM Interpretation: Performing Lab: Notes/Report: wbc 9.4 3.5 - 10 lym 26.5% 15 - 50 mid 6.0% 2 - 15 gran 67.5% 35 - 80 rbc 4.74 3.5 - 5.5 hgb 14.4 11.5 - 16.5 hct 43.8 35 - 55 mcv 92.4 75 - 100 mch 30.4 25 - 35 mchc 32.9 31 - 38 plat 339 100 - 400 REASON FOR VISIT swollen hands Medications Medication SIG (Take, Route, Frequency, Duration) Notes Start Date End Date Status Montelukast Sodium 10 MG TAKE 1 TABLET B Y MOUTH EVERYDAY AT BEDTIME Active metFORMIN HCl ER 500 MG 1 tablet with ev ening meal Orally Once a day for 90 days Active Methocarbamol 750 MG 1 tablet Orally horcae ry 12 hrs as needed for 30 days 12/30/2024 Active Xarelto 10 MG TAKE 1 TABLET BY SUMIT TH EVERY DAY WITH FOOD FOR 90 DAYS for 90 Active Furosemide 20 MG 1 tablet Orally Once a day for 30 days 12/30/2024 Active Ventolin HFA 108 (90 Base) MCG/ACT 2 puff(s) inhaled 4 times a day as needed 02/25/2022 Active DULoxetine HCl 60 MG TAKE 1 CAPSULE BY M OUTH EVERY DAY FOR 90 DAYS for 90 Active Pregabalin 75 MG 1 capsule Orally Thr ee times a day for 30 day(s) 10/12/2024 Active Xyzal Allergy 24HR 5 MG 1 tablet in the evening Orally Once a day Active Flonase Sensimist 27.5 MCG/SPRAY USE 1 SPRAY IN EACH NOSTRIL ONCE A DAY Active Synthroid 50 MCG 1 tab(s) orally once a day, except Sun Active Vitamin D3 125 MCG (5000 UT) 1 tab(s) orally once a day 11/30/2021 Active Mounjaro 2.5 MG/0.5ML as directed Subcutaneous Active Armodafinil 150 MG 1 tablet Orally Once a day Active Vital Signs Blood pressure systolic 122 mm Hg 01/24/20 25 Blood pressure diastolic 70 mm Hg 025 Heart Rate 70 /min 01/23/2025 Height 62 in 01/23/2025 Weight 251.4 lbs 01/23/2025 BMI 45.98 kg/m2 01/23/2025 Encounters Encounter Location Date Provider Diagnosis [facility] [address] [facility] [address] [facility] [address] [place] [id number] 01/23/2025 Brandee Ceron Swelling R60.9 Assessments Encounter Date Diagnosis (ICD Code) Assessment Notes Treatment Notes Treatment Clinical Notes Section Notes 01/23/2025 Swelling (ICD-10 - R60.9) Will call Dr. Valdovinos's office and see if she can stop the armodafinil. Plan Of Treatment Treatment Notes Assessment Notes Swelling Will call Dr. Valdovinos' s office and see if she can stop the armodafinil. Next Appt Details Follow Up: with neurologyKojo: Provider Name:Sanjiv Khan ry, 04/28/2025 05:30:00 PM, [address], [place], [id number], Progress Notes * Shon HERNANDEZOB:1970 ( 54 yo F)Acc No.[id number]:01/23/2025 Progress Notes Patient: Eleonora MONSALVE Provider: ARABELLA Rendon :1970 A ge:54 Y S ex:Female Date:01/23/2025 Address:[address] [place], [place] [address] [id number] Pcp:Sanjiv Everett Subjective: * Chief Complaints: * 1 . Swollen hands. * HPI: W rist/Hand: 54 year old female presents with c/o swelling T he pt is here today to discuss continued swelling in both hands. Pt states Dr Valdovinos has started her on Armodafinil 2 months ago and she has had the swelling since that time. Pt states the swelling is worse in the mornings. * ROS: D ERMATOLOGY: no R stephie. n o H elijah. G ASTROENTEROLOGY: no N ausea. n o V omiting. n o D iarrhea.? U ROLOGY: no D ifficulty urinating. n o B lood in urine. * Medical History: T ongue cancer, Allergic Rhinitis, Hypothyroidism, Esophageal Reflux, Plantar Fasciitis, Bilateral Mucosal Thickening of Maxillary Sinuses 08/2009, Scheuermann's Kyphosi Repair, Back Pain, Mammogram 03/2021, Pap 07/2019, COVID 19, Pfizer, Sep-Oct 2020, COVID-19 Illness, 09/21/2021, DEXA 11/2021, Fibromyalgia, pulmonary embolism, January 2024. * Surgical History: L T Ovary Removal 2005, Turbinectomy 2004, Partial Hysterectomy 1995, Tubal Ligation 1992, Tonsillectomy 1973, RT Shoulder 12/09/14, L3-L5 Spinal Fusion 02/22/2016, Tongue Biopsy 10/04/2016, Breast Reduction 01/27/2017, Tongue Carcinoma, Partial Glossectomy and Neck Node Dissection 2016, Neck Needle Biopsy, [facility], Negative 12/15/2017, Colonoscopy, Negative, Dr. Kaba, recommended 10yr f/u 03/20/2018, Vein Ablasion 05/03/2019, RT Shoulder Replacment 06/01/2020, Cervical Spine Diskectomies and Fusion C3, C4, C5, C6 08/19/2021, Right Great Toe Bunion Surgery - Dr. Joseph 08/08/2022, Fusion C4-7, left side foramenectomy C6-7 C7-T1 11/13/2023. * Hospitalization/Major Diagno stic Procedure: S [facility] Surgery for Scheurmann's Syndrome 02/06/2008, [facility] 02/22/2016, RT Shoulder Replacement 06/01/2020, Allergic Reaction- [facility] 11/21/2023. * Family History: F ather: alive. M other: alive. P aternal Grand Father: hypertension. P aternal Grand Mother: hypertension. M aternal Grand Mother: diabetes. 1 brother(s) , 1 sister(s) - healthy. 1 son(s) , 1 daughter(s) - healthy. . * Social History: C URRENT TOBACCO USE S moking Status: Patient does NOT smoke. C affeine: yes, frequency:. Marital Status: . Past smoking status: no, Smoking status: Does not smoke, Former Smoker: No. Alcohol: No. * Medications: T aking Mounjaro 2.5 MG/0.5ML Solution Auto-injector as directed Subcutaneous , Taking Armodafinil 150 MG Tablet 1 tablet Orally Once a day , Taking Synthroid 50 MCG Tablet 1 tab(s) orally once a day, except Sun , Taking Vitamin D3 125 MCG (5000 UT) Tablet 1 tab(s) orally once a day , Taking Ventolin HFA 108 (90 Base) MCG/ACT Aerosol Solution 2 puff(s) inhaled 4 times a day as needed , Taking DULoxetine HCl 60 MG Capsule Delayed Release Particles TAKE 1 CAPSULE BY MOUTH EVERY DAY FOR 90 DAYS , Taking Pregabalin 75 MG Capsule 1 capsule Orally Three times a day , Taking Xyzal Allergy 24HR 5 MG Tablet 1 tablet in the evening Orally Once a day , Taking Flonase Sensimist 27.5 MCG/SPRAY Suspension USE 1 SPRAY IN EACH NOSTRIL ONCE A DAY , Taking Montelukast Sodium 10 MG Tablet TAKE 1 TABLET BY MOUTH EVERYDAY AT BEDTIME , Taking metFORMIN HCl ER 500 MG Tablet Extended Release 24 Hour 1 tablet with evening meal Orally Once a day , Taking Xarelto 10 MG Tablet TAKE 1 TABLET BY MOUTH EVERY DAY WITH FOOD FOR 90 DAYS , Taking Furosemide 20 MG Tablet 1 tablet Orally Once a day , Taking Methocarbamol 750 MG Tablet 1 tablet Orally every 12 hrs as needed , Medication List reviewed and reconciled with the patient * Allergies: C ephalosporins: Diarrhea - Side Effects, oxyCODONE: hives - Allergy, HYDROcodone-Acetaminophen: itching. Objective: * Vitals: W t: 251.4, Temp: 98.2, BP: 122/70, HR: 70, Nurse: PRASANTH, Ht: 62, BMI:45.98. * Examination: G eneral Examination: General Appearance: N AD. Chest: n ormal shape and expansion. Heart: R SR. Lungs: c lear to auscultation. Abdomen: bowel sounds present, soft and nontender, no organomegaly or masses, no guarding or rigidity. Extremities: 1+ leg edema and hand edema. ? Assessment: * Assessment: 1. S welling - R60.9 (Primary) Plan: * Treatment: Value Reference Range w bc 9.4 3.5 - 10 * l ym 26.5% 15 - 50 * m id 6.0% 2 - 15 * g ran 67.5% 35 - 80 * r bc 4.74 3.5 - 5.5 * h gb 14.4 11.5 - 16.5 * h ct 43.8 35 - 55 * m cv 92.4 75 - 100 * m ch 30.4 25 - 35 * m chc 32.9 31 - 38 * p lat 339 100 - 400 * Marbella Davis 01/23/2025 04 :54:21 PM > Provider reviewed results while patient in office. Notes: Will call Dr. Valdovinos's office and see if she can stop the armodafinil.?? * Follow Up: w [facility] neurology * Billing Information: * Visit Code: 88536 Office Visit, Est Pt., Level 3. * Procedure Codes: * Electronic signature of ARABELLA Hussein on 02/26/2025 at 11:36 AM EDT Sign off status: Pending * Provider: ARABELLA Rendon Date: 0 01/23/2025 Generated for Nicholasi ng/Garrison/eTransmitting on: 0 02/26/2025 11:36 AM EDT History and Physical Notes * HPI (History of Present Illness) Category Sub-Category Detail Notes Category Not es Wrist/Hand swelling The pt is here t juliana to discuss continued swelling in both hands. Pt states Dr Aruna has started her on Armodafinil 2 months ago and she has had the swelling since that time. Pt states the swelling is worse in the mornings Examination Category Sub-Category Detail Notes Category Not es General Examination Heart: RSR Lungs: clear to auscultatio n Abdomen: bowel sounds present , soft and nontender, no organomegaly or masses, no guarding or rigidity Extremities: 1+ leg edema and nicole d edema General Appearance: NAD Chest: normal shape and exp ansion
--- OUTSIDE RECORDS SUMMARY | 2025-01-28 06:45 | XMS_ITS ---
Author Organization [facility] Address [address] [facility] [address] [place] [phone] Care Team Providers Care Public Policy Professor Name Role Phone Marguerite Sanjiv Primary Care Provider [phone] Leyla Deutsch [phone] Allergies Allergen (clinical drug ingredient) Drug/Non Drug Allergy documented on EMR Reaction Allergy Type Onset Date Status acetaminophen / hydrocodone HYDROcodone-Acetaminoph en itching Drug Allergy Active Medicinal cephalosporin and acting as antibacterial agent (FN) Cephalosporins Diarrhea Drug Allergy Active oxycodone oxyCODONE hives Drug Allergy Active Results Component Value Reference Range Notes Urinalysis - Inhouse Reviewed date:01/28/2025 02:38:01 PM Interpretation: Performing Lab: Notes/Report: Color/Clarity yellow/clear Leuk Neg Nitrite Neg Urobili 3.2 Protein Neg pH 7.0 Blood 1+ Sp. Gr. 1.010 Ketone Neg Bili Neg Gluc Neg Glucose (In-House) Reviewed date:01/28/2025 02:38:11 PM Interpretation: Performing Lab: Notes/Report: blood glucose 98 74 - 106 mg/dL CBC Venipuncture (in house) Reviewed date:01/28/2025 02:38:21 PM Interpretation: Performing Lab: Notes/Report: wbc 5.6 3.5 - 10 lymph 30.6% 15 - 50 mid 8.3% 2 - 15 gran 61.1% 35 - 80 rbc 4.66 3.5 - 5.5 hgb 14.3 11.5 - 16.5 hct 42.6 35 - 55 mcv 91.3 75 - 100 mch 30.6 25 - 35 mchc 33.6 31 - 38 platlet 332 100 - 400 Glycohemoglobin A1c (in hous e) Reviewed date:01/28/2025 02:38:31 PM Interpretation: Performing Lab: Notes/Report: glycohemoglobin 5.1% 5 - 6.5 % P-Basic Metabolic Panel (BMP ) Reviewed date:01/30/2025 08:38:44 AM Interpretation: Normal Performing Lab: Notes/Report: Test performed by [email or web address] [address] [place] [address] , [address], [place] [address] Joe Esteban MD, [employer] CLIA: [id number] Sodium 141 135-145 mmol/L Potassium 5.1 3.5-5.3 mmol/L Chloride 103 97-108 mmol/L CO2 26 22-32 mmol/L Glucose 83 65-99 mg/dL BUN 16 6-20 mg/dL Creatinine 0.72 0.50-1.00 mg/dL Calcium 9.4 8.6-10.4 mg/dL eGFR by Creatinine 98 >59 mL/min/1.73m2 P-Vitamin D 25-Hydroxy Reviewed date:01/30/2025 08:38:44 AM Interpretation:39.8 Performing Lab: Notes/Report: Test performed by [email or web address] [address] [place] [address] , [address], [place] [address] Joe Esteban MD, [employer] CLIA: [id number] Vitamin D 25-Hydroxy 39.8 30.0-100.0 ng/mL Interpretation of Vitamin D 25 OH: < 20 ng/mL - Deficiency 20 - 29 ng/mL - Insufficiency 30 - 100 ng/mL - Sufficiency > 100 ng/mL - Super-therapeutic- toxicity may occur above this level. Clinical correlation required. REASON FOR VISIT 1 Month Follow Up Medications Medication SIG (Take, Route, Frequency, Duration) Notes Start Date End Date Status DULoxetine HCl 60 MG TAKE 1 CAPSULE BY M OUTH EVERY DAY FOR 90 DAYS for 90 Active Pregabalin 75 MG 1 capsule Orally Thr ee times a day for 30 day(s) 10/12/2024 Active Ventolin HFA 108 (90 Base) MCG/ACT 2 puff(s) inhaled 4 times a day as needed 02/25/2022 Active Xyzal Allergy 24HR 5 MG 1 tablet in the evening Orally Once a day Active Flonase Sensimist 27.5 MCG/SPRAY USE 1 SPRAY IN EACH NOSTRIL ONCE A DAY Active Synthroid 50 MCG 1 tab(s) orally once a day, except Sun Active Methocarbamol 750 MG 1 tablet Orally horace ry 12 hrs as needed for 30 days 12/30/2024 Active Vitamin D3 125 MCG (5000 UT) 1 tab(s) orally once a day 11/30/2021 Active Mounjaro 2.5 MG/0.5ML as directed Subcutaneous Active Montelukast Sodium 10 MG TAKE 1 TABLET B Y MOUTH EVERYDAY AT BEDTIME Active metFORMIN HCl ER 500 MG 1 tablet with ev ening meal Orally Once a day for 90 days Active Xarelto 10 MG TAKE 1 TABLET BY SUMIT TH EVERY DAY WITH FOOD FOR 90 DAYS for 90 Active Furosemide 20 MG 1 tablet Orally Once a day for 30 days 12/30/2024 Active Vital Signs Blood pressure systolic 124 mm Hg 01/29/20 25 Blood pressure diastolic 74 mm Hg 025 Heart Rate 76 /min 01/28/2025 Height 62 in 01/28/2025 Weight 247.4 lbs 01/28/2025 BMI 45.25 kg/m2 01/28/2025 Encounters Encounter Location Date Provider Diagnosis [facility] [address] [facility] [address] [facility] [address] [place] [id number] 01/28/2025 Sanjiv Everett Peripheral edema R60 .0 ; Vitamin D deficiency E55.9 ; IFG (impaired fasting glucose) R73.01 and Acute URI J06.9 Assessments Encounter Date Diagnosis (ICD Code) Assessment Notes Treatment Notes Treatment Clinical Notes Section Notes 01/28/2025 Peripheral edema (ICD-10 - R60.0) 01/28/2025 Vitamin D deficiency (ICD-10 - E55.9) 01/28/2025 IFG (impaired fasting glucose) (ICD-10 - R73.01) 01/28/2025 Acute URI (ICD-10 - J06.9) Plan Of Treatment Next Appt Details Follow Up: via phone to repo rt test results,3 Months, Reason: Provider Name:Sanjiv johnson, 04/28/2025 05:30:00 PM, [address] [facility] [address] [facility], [address], [place], [place], [id number], Progress Notes * Shon HERNANDEZOB:1970 ( 54 yo F)Acc No.[id number]:01/28/2025 Progress Notes Patient: Eleonora MONSALVE Provider: Callie Everett M.D. :1970 A ge:54 Y S ex:Female Date:01/28/2025 Address:[address] [place], [place] [address] [id number] Subjective: * Chief Complaints: * 1 . 1 Month Follow Up. * HPI: C ardiology: 54 year old female presents with c/o Leg Edema P t here to f/u on rt leg and bilateral hand swelling. Pt states that she stopped taking Armodafinil and swelling has improved . E NT/respiratory: c/o nasal congestion P t complains of ongoing nasal congestion with green drainage. Pt states she was seen 01/23 and CBC was normal but her sx's have not improved. * ROS: D ERMATOLOGY: no R stephie. n o H elijah. G ASTROENTEROLOGY: no N ausea. n o V omiting. U ROLOGY: no D ifficulty urinating. n [...] Neck Node Dissection 2016, Neck Needle Biopsy, [facility], Negative 12/15/2017, Colonoscopy, Negative, Dr. Kaba, recommended 10yr f/u 03/20/2018, Vein Ablasion 05/03/2019, RT Shoulder Replacment 06/01/2020, Cervical Spine Diskectomies and Fusion C3, C4, C5, C6 08/19/2021, Right Great Toe Bunion Surgery - Dr. Joseph 08/08/2022, Fusion C4-7, left side foramenectomy C6-7 C7-T1 11/13/2023. 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 * Family History: F ather: alive. [...] Solution Auto-injector as directed Subcutaneous , Taking Synthroid 50 MCG Tablet 1 [...] Orally every 12 hrs as needed , Discontinued Armodafinil 150 MG Tablet 1 tablet Orally Once a day , Medication List reviewed and reconciled with the patient * Allergies: C ephalosporins: Diarrhea - Side Effects, oxyCODONE: hives - Allergy, HYDROcodone-Acetaminophen: itching. Objective: * Vitals: W t: 247.4, Temp: 97.8, BP: 124/74, HR: 76, Nurse: cody, Ht: 62, BMI:45.25. * Examination: E NT/Respiratory: General Appearance: N AD. Eyes: P ERRLA, sclera clear. Oral cavity : e rythema without exudate on pharynx. Heart : R RR. Lungs: c lear to auscultation bilaterally. Extremities : l ess edema today, still some in right leg.? Assessment: * Assessment: 1. P eripheral edema - R60.0 (Primary) 2 . V itamin D deficiency - E55.9? 3. I FG (impaired fasting glucose) - R73.01 4 . A cute URI - J06.9 Plan: * Treatment: Value Reference Range B UN 16 6-20 - mg/dL * C alcium 9.4 8.6-10.4 - mg/dL * C hloride 103 97-108 - mmol/L * C O2 26 22-32 - mmol/L * C reatinine 0.72 0.50-1.00 - mg/dL * G lucose 83 65-99 - mg/dL * P otassium 5.1 3.5-5.3 - mmol/L * S odium 141 135-145 - mmol/L * e GFR by Creatinine 98 >59 - mL/min/1.73m2 * Elnea Clemons 01/30/2025 08: 38:35 AM > See phone encounter ?LAB: Urinalysis - Inhouse (Collection Date & Time - 01/28/2025)* Value Reference Range C olor/Clarity yellow/clear * L euk Neg * N itrite Neg * U robili 3.2 * P rotein Neg * p H 7.0 * B lood 1+ * S p. Gr. 1.010 * K etone Neg * B sid Neg * G berna Neg * Josie Hernandez 01/28/2025 12:39: 57 PM > Provider reviewed results while patient in office. 2.?Vitamin D deficiency?LAB: P-Vitamin D 25-Hydroxy (Collection Date & Time - 01/28/2025 10:45 AM)? 39.8* Value Reference Range V itamin D 25-Hydroxy 39.8 30.0-100.0 - ng/mL * Elena Clemons 01/30/2025 08: 38:35 AM > See phone encounter 3.?IFG (impaired fasting glucose)?LAB: Glucose (In-House) (Collection Date & Time - 01/28/2025)* Value Reference Range b lood glucose 98 74 - 106 mg/dL * Josie Hernandez 01/28/2025 12:40: 26 PM > Provider reviewed results while patient in office. ?LAB: Glycohemoglobin A1c (in house) (Collection Date & Time - 01/28/2025)* Value Reference Range g lycohemoglobin 5.1% 5 - 6.5 % * Josie Hernandez 01/28/2025 12:41: 02 PM > Provider reviewed results while patient in office. 4.?Acute URI?LAB: CBC Venipuncture (in house) (Collection Date & Time - 01/28/2025)* Value Reference Range w bc 5.6 3.5 - 10 * l ymph 30.6% 15 - 50 * m id 8.3% 2 - 15 * g ran 61.1% 35 - 80 * r bc 4.66 3.5 - 5.5 * h gb 14.3 11.5 - 16.5 * h ct 42.6 35 - 55 * m cv 91.3 75 - 100 * m ch 30.6 25 - 35 * m chc 33.6 31 - 38 * p latlet 332 100 - 400 * Josie Hernandez 01/28/2025 12:43: 27 PM > Provider reviewed results while patient in office. * Procedure Codes: 8 2950 GLUCOSE TEST, 41271 GLYCATED HEMOGLOBIN TEST, Modifiers: QW , 60523 CBC WITH AUTO DIFF, 63190 VENIPUNCT, ROUTINE*, 41950 Urinalysis, no micro, G8783 BP SCR PRFRM RCMDD DEFIND SCR INTVL, G8752 MOST RECENT SYSTOLIC BP < 140MM HG, G8754 MOST RECENT DIASTOLIC BP < 90MM HG, 3044F HG A1C LEVEL LT 7.0%, 3017F COLORECTAL CA SCREEN DOC REV * Preventive Medicine: Screening / Special Tests: C olonoscopy r ecent history: 07/10/2023, polyps, hemorrhoids, repeat 5-7 years. * Follow Up: v ia phone to report test results,3 Months * Billing Information: * Visit Code: 43035 Office Visit, Est Pt., Level 4. * Procedure Codes: 65667 GLUCOSE TEST. 18517 GLYCATED HEMOGLOBIN TEST. Modifiers: QW 42710 CBC WITH AUTO DIFF. 01602 VENIPUNCT, ROUTINE*. 90258 Urinalysis, no micro. G8783 BP SCR PRFRM RCMDD DEFIND SCR INTVL. G8752 MOST RECENT SYSTOLIC BP < 140MM HG. G8754 MOST RECENT DIASTOLIC BP < 90MM HG. 3044F HG A1C LEVEL LT 7.0%. 3017F COLORECTAL CA SCREEN DOC REV. * Electronic signature of Sweta Everett MD on 02/26/2025 at 11:36 AM EDT Sign off status: Pending * Provider: Callie Everett M.D. Date: 0 01/28/2025 Generated for Kayla padilla/Garrison/eTransmitting on: 0 02/26/2025 11:36 AM EDT History and Physical Notes * HPI (History of Present Illness) Category Sub-Category Detail Notes Category Not es ENT/respiratory nasal congestion Pt complains of ongoing nasal congestion with green drainage. Pt states she was seen 01/23 and CBC was normal but her sx's have not improved Cardiology Leg Edema Pt here to f/u o n rt leg and bilateral hand swelling. Pt states that she stopped taking Armodafinil and swelling has improved Examination Category Sub-Category Detail Notes Category Not es ENT/Respiratory Oral cavity : erythema without exudate on pharynx Heart : RRR Lungs: clear to auscultatio n bilaterally Extremities : less edema today, st ill some in right leg General Appearance: NAD Eyes: PERRLA, sclera clear
--- OUTSIDE RECORDS SUMMARY | 2025-02-19 11:00 | XMS_ITS | Encounter Summary ---
Author Organization [facility] Address [address] [place] [address] Care Team Providers Care Break Off Worker Name Role Phone Jay Jay Deutsch MD Primary Care Provider [phone] Reason for Referral * Surgical (Routine) - Pending Review Specialty Diagnoses / Procedures Referred By Contac t Referred To Contact Diagnoses Primary osteoarthritis of left knee Procedures AMB [facility] SURGERY COMMUNICATION ORDER Jay Jay Hanks MD [address] [place] [address] Phone: tel: fax: Referral ID Status Reason Start Date Expiration Date V isits Requested Visits Authorized [id number] Pending Review 02/19/2025 02/19/2026 1 1 * Physical Therapy (Routine) - Pending Review Specialty Diagnoses / Procedures Referred By Contac t Referred To Contact Physical Therapy Diagnoses Unilateral primary osteoarthritis, left knee Jay Jay Hanks MD [address] [place] [address] Phone: tel: fax: Referral ID Status Reason Start Date Expiration Date V isits Requested Visits Authorized [id number] Pending Review 02/19/2025 02/19/2026 1 1 Question Answer surgical procedure TKR Prehab Evaluate and Treat Yes Select as appropriate Evaluate and treat appropriately Modalities/Procedures As Indicated Therapeutic Exercise As Indicated Goals: Decrease pain and swelling, Increase ROM, Increase function, Increase strength Additional instructions: Teach HEP, Frequency and duration per therapist discretion * MRI/CAT Scan (Routine) - Pending Review Specialty Diagnoses / Procedures Referred By Boyd t Referred To Contact Radiology Diagnoses Unilateral primary osteoarthritis, left knee Procedures CT LOWER EXTREMITY LEFT WO CONTRAST Jay Jay Hanks MD [address] [place] [address] Phone: tel: fax: [facility] [address] [place] [address] Phone: tel: fax: Referral ID Status Reason Start Date Expiration Date V isits Requested Visits Authorized [id number] Pending Review 02/19/2025 02/19/2026 1 1 Reason for Visit * Reason Comments Pain Encounter Details Date Type Department Care Team (Latest Contact Info) Description 02/19/2025 11:00 AM EDT [facility] [address] [place] [address] Jay Jay Hanks MD [address] [place] [address] Primary osteoarthritis of left knee (Primary Dx) Social History Tobacco Use Types Packs/Day Years Used Date Smoking Tobacco: Never Smokeless Tobacco: Never Alcohol Use Standard Drinks/Week Comments No 0 (1 standard drink = 0.6 oz pur e alcohol) Sexually Active Control Partners Comments Yes Surgical Male Hyst Comments No Sex and Gender Information Value Date Recorded Sex Assigned at Not on file Legal Sex Female 3:16 AM EDT Gender Identity Not on file Sexual Orientation Not on file documented as of this encounter Last Filed Vital Signs Vital Sign Reading Time Taken Comments Blood Pressure - - Pulse - - Temperature - - Respiratory Rate - - Oxygen Saturation - - Inhaled Oxygen Concentration - - Weight 111.1 kg (245 lb) 02/19/2025 10:58 AM EDT Height - - Body Mass Index 44.81 11/12/2024 2:49 PM EDT documented in this encounter Progress Notes * Jay Jay Hanks MD - 02/19/2025 11:00 AM EDT Images from the original note were not included. Subjective: 02/19/2025 Eleonora Hernandez 54 y.o. female. History of Present Illness The patient is a 54-year-old female, new patient, seeking a second opinion from Dr. Ojeda with a primary reason for this visit of left knee pain. Left Knee Pain She has been experiencing persistent pain in her left knee since 10/2024, following an incident where she rolled her right ankle and landed on her left knee. The pain is particularly pronounced when ascending or descending stairs. She also reports occasional pain around the kneecap, which varies inintensity, and frequent grinding sensations. She is currently on Xarelto, a blood thinner, which precludes the use of anti-inflammatories. She is not diabetic and does not smoke. She underwent a procedure by Dr. Myles in 07/2024, which initially seemed to alleviate the discomfort. - Onset: Since 10/2024, following an incident. - Location: Left knee. - Duration: Persistent since 10/2024. - Character: Pain particularly pronounced when ascending or descending stairs; occasional pain around the kneecap; frequent grinding sensations. - Alleviating/Aggravating Factors: Use of Xarelto precludes anti-inflammatories; procedure by Dr. Myles in 07/2024 initially alleviated discomfort. - Severity: Varies in intensity; particularly pronounced when ascending or descending stairs. Back Surgery and Post-Surgical Numbness She has a history of major back surgery and has experienced numbness along her back post-surgery. She has a history of pulmonary emboli but has not experienced any post-surgical complications. She has undergone bilateral shoulder replacements. - Onset: Post-surgery. - Location: Along her back. - Character: Numbness. PAST SURGICAL HISTORY: Bilateral shoulder replacements Major back surgery SOCIAL HISTORY - Tobacco: Does not smoke ALLERGIES Allergies Allergen Reactions Adhesive Rash Clindamycin Rash Possible SJS Vancomycin Rash Possible SJS Hydrocodone-Acetaminophen Itching Morphine Hives Other reaction(s): Not available <paragraph>Patient stated that she has issues with opioids and last time she took opioid (hydrocodone) she broke out in hives on the bottom of her feet .</paragraph> Opioids - Morphine Analogues Hives Patient stated that she has issues with opioids and last time she took opioid (hydrocodone) she broke out in hives on the bottom of her feet . MEDICATIONS Current Outpatient Medications on File Prior to Visit Medication Sig Dispense Refill DULoxetine (CYMBALTA) 60 mg Oral Capsule, Delayed Release(E.C.) Take by mouth daily. fUROsemide (LASIX) 20 mg Oral Tablet Take 20 mg by mouth daily. levocetirizine (XYZAL) 5 mg Oral Tablet Take 5 mg by mouth every evening. LEVOthyroxine (SYNTHROID) 50 mcg Oral Tablet Take by mouth daily. metFORMIN (GLUCOPHAGE) 500 mg Oral Tablet Take by mouth daily. methocarbamol (ROBAXIN) 750 mg Oral Tablet Take 750 mg by mouth 2 times daily. montelukast (SINGULAIR) 10 mg Oral Tablet Take 10 mg by mouth every evening. MOUNJARO 5 mg/0.5 mL SubQ Pen Injector INJECT 5MG UNDER THE SKIN EVERY 7 DAYS FOR 4 WEEKS pregabalin (LYRICA) 50 mg Oral Capsule Take 75 mg by mouth 2 times daily. rivaroxaban (XARELTO) 20 mg Oral Tablet Take 10 mg by mouth daily. albuterol (PROVENTIL HFA;VENTOLIN HFA) 90 mcg/actuation Inhl HFA Aerosol Inhaler Inhale 2 Puffs into the lungs as needed for Wheezing. azithromycin (ZITHROMAX) 250 mg Oral Tablet estradioL (ESTRACE) 0.01 % (0.1 mg/gram) Vagl Cream Do not use applicator. Blueberry size amount (0.5g) with fingertip application nightly. (Patient not taking: Reported on 06/25/2024) 42.5 g 1 fluticasone furoate (FLONASE SENSIMIST NASL) by Nasal route. methylPREDNISolone (MEDROL DOSPACK) 4 mg Oral Tablets, Dose Pack follow package directions 21 Tablet 0 PAIN CREAM (KET5%/BAC2%/DICLO3%/GABAP6%/LIDO2%/PRIL2%) Apply 2 Pump topically 3 times daily. (Patient not taking: Reported on 02/19/2025) 1 Each 0 No current facility-administered medications on file prior to visit. SOCIAL HISTORY Social History Socioeconomic History Marital status: Tobacco Use Smoking status: Never Smokeless tobacco: Never Vaping Use Vaping status: Never Used Substance and Sexual Activity Alcohol use: No Drug use: No Sexual activity: Yes Partners: Male control/protection: Surgical Comment: Hyst Social Drivers of Health Received from [facility] [place] [facility] Food Insecurities Received from [facility] [place] [facility] Transportation [facility]ceived from [facility] Community Support Received from [facility] [place] [facility] and [facility] Interpersonal Safety Received from [facility] [place] [facility] and [facility] Housing/Utilities PAST MEDICAL HISTORY Past Medical History: Diagnosis Date Arthritis Asthma 12/08/2014 exercised induced. last attack years ago. Cancer (HCC) tongue Depression Irritable bowel syndrome 12/08/2014 Lymphedema alcides lower legs Postoperative nausea and vomiting 12/08/2014 uses patch and does well Sleep apnea use cpap Slow to wake up after anesthesia Thyroid disease 12/08/2014 hypothyroid. Urinary tract infection SURGICAL HISTORY Past Surgical History: Procedure Laterality Date ANKLE SURGERY Right 04/27/2020 soft tissue mass [facility] BACK SURGERY 12/08/2014 fusion with rods and screws. BREAST REDUCTION SURGERY 2017 CERVICAL SPINE SURGERY fusion FOOT SURGERY Right bunionectomy r big toe GLOSSECTOMY 2017 partial HYSTERECTOMY IR INTRAVASCULAR ULTRASOUND INITIAL NON CORONARY VESSEL 07/09/2020 IR INTRAVASCULAR ULTRASOUND INITIAL NON CORONARY VESSEL 07/09/2020 Omar Garcia DO [facility] IR IR ULTRASOUND GUIDED VASCULAR ACCESS 07/09/2020 IR ULTRASOUND GUIDED VASCULAR ACCESS 07/09/2020 Omar Garcia DO [facility] IR IR VENOGRAM LOWER EXTREMITY RIGHT 07/09/2020 IR VENOGRAM LOWER EXTREMITY RIGHT 07/09/2020 Omar Garcia DO [facility] IR KNEE ARTHROSCOPY Right 11/29/2018 RIGHT KNEE ARTHROSCOPY PARTIAL MEDIAL MENISCECTOMY AND CHONDROPLASTY; Surgeon: Gumaro Myles MD; Location: [facility]; Service: Orthopedics KNEE ARTHROSCOPY Left 07/11/2024 Left knee arthroscopic partial medial meniscectomy with arthroscopic chondroplasty; Surgeon: Gumaro Myles MD; Location: [facility]; Service: Orthopedics LAPAROSCOPY LASIK LYMPH NODE DISSECTION pt states she had 46 lymph nodes removed from her neck area NOSE SURGERY Bilateral 12/08/2014 Nasal turbinate surgery. OVARY REMOVAL Left 12/08/2014 states removed after hysterectomy. SHOULDER ARTHROPLASTY Right 06/01/2020 RIGHT TOTAL SHOULDER ARTHROPLASTY BICEPS TENODESIS; Surgeon: Kojo Brown MD; Location: [facility]; Service: Orthopedics SHOULDER ARTHROPLASTY Left 01/23/2023 LEFT TOTAL SHOULDER ARTHROPLASTY WITH BICEPS TENODESIS; Surgeon: Florencio Brown MD; Location: [facility]; Service: Orthopedics SHOULDER ARTHROSCOPY Right 12/09/2014 RIGHT SHOULDER ARTHROSCOPY, BICEPS TENOTOMY, MICROFRACTURE OF GLENOID, LABRAL DEBRIDEMENT; Surgeon:Gumaro Myles MD; Location: [facility]; Service: Orthopedics SPINAL FUSION TONSILLECTOMY TUBAL LIGATION ULNAR TUNNEL RELEASE Left 06/07/2023 Left Cubital Tunnel Release, transposition; Surgeon: Asim Schaeffer MD; Location: [facility]; Service: Orthopedics VARICOSE VEIN SURGERY Right 05/03/2019 Radiofrequency ablation right greater saphenous vein ; Surgeon: Omar Garcia DO; Location: [facility]; Service: Vascular Objective: Estimated body mass index is 44.81 kg/m?? as calculated from the following: Height as of 11/12/24: 5' 2 (1.575 m). Weight as of this encounter: 245 lb (111.1 kg). PHYSICAL EXAMINATION: General: Well appearing with appropriate affect. No acute distress. Head/neck: Normocephalic. Range of motion of the neck: Easy without discomfort. Skin: Skin warm and dry. Color natural. Neuro: Alert and oriented to person, place, and time. Normal neurosensory response to touch. Pulmonary: Chest expansion appears symmetric and unlabored. Cardiovascular: No signs of peripheral edema. Lymphatic: No signs of lymphangitis. Musculoskeletal: Physical Exam - Musculoskeletal: - Left knee: - Range of motion: 0 to 130 degrees - Mild genu varum - Stable to varus and valgus stress - Correctable to neutral - Tenderness over the medial joint line and medial femoral condyle - No tenderness over the lateral femoral condyle Assessment and Plan: Assessment & Plan 1. Left knee pain: - Total knee replacement recommended due to severe arthritis in the medial compartment of the left knee, Kellgren-Ivan grade 3 changes - Procedure to be performed using robotic navigation for precise alignment and balance - Outpatient procedure lasting about an hour - Patient to spend approximately half the day at the surgery center or hospital - Post-surgery walking allowed immediately, initially with walker, then cane, eventually no assistance - Physical therapy twice a week for about two months, recovery generally takes 6 to 8 weeks for normal function - Risks: weakness, stiffness, nerve damage, vessel damage, tendon damage, numbness, blood clots, infection - Xarelto to be discontinued 3 days prior to surgery and resumed the following day to minimize bleeding risk - Patient does not have diabetes or smoking history, but has higher BMI, slightly increasing risk of complications - Decision to proceed with surgery Follow-up: - Plan for total knee replacement surgery at the recommended surgery center The patient has failed conservative management of their knee arthritis which has included over 6 months of oral anti-inflammatory medications, weight loss, bracing, physical therapy, multiple injections. Their severe arthritis is affecting their ability to perform activities of daily living. Their x-rays show Kellgren and Ivan grade 4 changes indicating severe arthritis. I think knee replacement surgery is indicated and reasonable. Their BMI is 44, they do not smoke, they have no history of diabetes. Their dental health is up-to-date. With a BMI >35, I've discussed the importance of weight loss prior to surgery. I offered a consultation with a weight loss counselor. Patient stated they would lose weight prior to surgery with diet and exercise. History of DVT, PE, stroke, thromboembolic event, any prior need for anticoagulation? Yes, PE on xarelto We will have them visit their primary care doctor within 30 days of surgery for medical clearance. They will complete a total joint replacement class through the hospital prior to their procedure. Plan for same-day surgery, robotic assisted, press-fit. High risk antibiotic and high risk DVT prophylaxis regiment. Hold xarelto 3 days prior to surgery, restart POD 1. We had a lengthy discussion about risks, benefits, and alternatives to surgery. Risks include but are not limited to: bleeding, blood clots (including DVT, PE, stroke), myocardial infarction, wound complications, infection, damage to nerves/vessels/tendons, fracture, loosening, need for additional procedures, chronic pain, limb length discrepancy, instability, stiffness, as well as catastrophic injury: loss of limb or life. Benefits are pain relief, improved function. Alternatives are non-operative management. All questions were answered. Patient acknowledged understanding and would like to proceed with surgical management as previously described. Consent signed in clinic and scanned into chart. Diagnoses and all orders for this visit: Primary osteoarthritis of left knee - CT LOWER EXTREMITY LEFT WO CONTRAST; Future - AMB REFERRAL TO PHYSICAL THERAPY - HEMOGLOBIN A1C; Future - AMB [facility] SURGERY COMMUNICATION ORDER Radiology/Laboratory Results: Results - Imaging: - Three-view standing x-ray of the left knee (10/21/2024): - Genu varum - Moderate to severe joint space narrowing in the medial compartment - Isolated to the medial compartment - Kellgren-Ivan grade 3 - Two-view standing x-rays of the left knee (10/21/2024): - Genu varum - Moderate to severe joint space narrowing in the medial compartment - Isolated to the medial compartment - Kellgren-Ivan grade 3 - Two-view standing AP films of bilateral knees (11/12/2024): - Isolated medial compartment arthritis with joint space narrowing - Subchondral sclerosis - Osteophyte formation - Kellgren-Ivan grade 3 - Mild degenerative changes in patellofemoral compartment, but minimal - [place] view of the left knee (11/12/2024): - Isolated medial compartment arthritis with joint space narrowing - Subchondral sclerosis - Osteophyte formation - Kellgren-Ivan grade 3 - Mild degenerative changes in patellofemoral compartment, but minimal Please note that this high school principal was created using voice recognition software. Any errors are unintentional and may be due to voice recognition high school principal. The provider informed the patient (or legal patient intake representative) on the use of the ambient listening artificial intelligence tool, [employer] to obtain consent to its use. It was explained that this AI tool processes the conversation to generate a clinical note with the expected benefit of improved accuracy with a goal of improving the encounter experience for the patient and provider.?The provider explained that the medical information captured by the AI tool would be protected by applicable privacy laws. The patient was given an opportunity to ask questions and opt out of proceeding with the use of the AI tool. After being informed of such information, the patient (or legal patient intake representative), and each individual in attendance with the patient, consented to the use of the AI tool. Jay Jay Hanks MD documented in this encounter Plan of Treatment Upcoming Encounters Date Type Department Care Team (Late st Contact Info) Description 02/27/2025 2:30 PM EDT Appointment [facility] [address] [place] [address] Jay Jay Hanks MD [address] [place] [address] 02/27/2025 3:15 PM EDT Clinical [facility] [address] [facility] [address] [place] [address] 03/06/2025 10:35 AM EDT Hospital Encounter [facility] [address] [place] [address] Jay Jay Hanks MD [address] [place] [address] 03/06/2025 10:35 AM EDT Anesthesia Event [facility] [address] [place], [place] [id number] Michelet Cheema MD [address] [facility] [place] [address] 03/06/2025 10:35 AM EDT - 03/06/2025 11:50 AM EDT Surgery [facility] [address] [place] [id number] Jay Jay Hanks MD [address] [place] [address] TOTAL KNEE REPLACEMENT ROBOTIC ASSISTED-MIRIAM 03/13/2025 12:00 PM EDT Office Visit [facility] [address] [facility] [address] [place] [address] Stan Mcmahon, PHILLIP 03/19/2025 9:15 AM EDT Office Visit [facility] [address] [address] Brandi Wyman APRN [address] [place] [address] Scheduled Orders Name Type Priority Associated Diagnoses Orde r Schedule CT LOWER EXTREMITY LEFT WO CONTRAST Imaging Routine Primary osteoarthritis of left knee 1 Occurrences starting 02/19/2025 until 02/19/2026 HEMOGLOBIN A1C Lab Routine Primary osteoarthritis of left knee 1 Occurrences starting 02/19/2025 until 02/19/2026 Scheduled Procedures Name Priority Associated Diagnoses Date/Ti me TOTAL KNEE REPLACEMENT ROBOTIC ASSISTED-MIRIAM Primary osteoarthritis of left knee 03/06/2025 10:35 AM EDT Scheduled Referrals Name Type Priority Associated Diagnoses Orde r Schedule AMB REFERRAL TO PHYSICAL THERAPY Outpatient Referral Routine Primary osteoarthritis of left knee Ordered: 02/19/2025 documented as of this encounter Visit Diagnoses Diagnosis Primary osteoarthritis of left knee- Primary Primary localized osteoarthrosis, lower leg Primary osteoarthritis of left knee Primary localized osteoarthrosis, lower leg documented in this encounter Historical Medications * This list may reflect changes made after this encounter. fUROsemide (LASIX) 20 mg Oral Tablet Take 20 mg by mouth daily. 02/11/2025 MOUNJARO 5 mg/0.5 mL SubQ Pen Injector INJECT 5MG UNDER THE SKIN EVERY 7 DAYS FOR 4 WEEKS 02/02/2025 added in this encounter Orders Nursing Count Last Ordered Date First Orde red Date AMB [facility] SUR[facility] COMMUNICATION ORDER 1 2024 documented in this encounter Care Teams Break Off Worker Relationship Specialty Start Date End Date Jay Jay Deutsch MD [facility] [place] [address] [facility] [id number] PCP - General 05/31/11 documented as of this encounter
--- OUTSIDE RECORDS SUMMARY | 2025-02-26 11:36 | XMS_ITS | Encounter Summary ---
Author Organization [facility] Address [address] [place] [address] Care Team Providers Care Ged Tutor Name Role Phone Jay Jay Deutsch MD Primary Care Provider [phone] Encounter Details Date Type Department Care Team (Late Contact Info) Description 02/12/2025 [place] [address] Gumaro Myles MD [address] [place] [address] Social History Tobacco Use Types Packs/Day Years [...] on file documented as of this encounter Miscellaneous Notes * Telephone Encounter - Rosalinda Duenas, Clerical Staff - 02/12/2025 8:22 AM EDT Pt wants to know who Dr Myles refers to for knee replacements documented in this encounter Plan of Treatment Upcoming Encounters Date Type Department Care Team (Late st Contact Info) Description 02/27/2025 2:30 PM EDT Appointment [place] [address] [place] [address] Jay Jay Hanks MD [address] [place] [address] 02/27/2025 3:15 PM EDT Clinical [facility] [address] [address] 03/06/2025 10:35 AM EDT Hospital [facility] [address] [place] [address] Jay Jay Hanks MD [address] [place] [address] 03/06/2025 10:35 AM EDT Anesthesia [place] [address] Michelet Cheema MD [address] [facility] [place] [address] 03/06/2025 10:35 AM EDT - 03/06/2025 11:50 AM EDT [facility] [address] [place] [address] Jay Jay Hanks MD [address] [place] [address] TOTAL KNEE REPLACEMENT ROBOTIC ASSISTED-[facility] 03/13/2025 12:00 PM EDT Office Visit [facility] [address] [facility] [address] [place] [address] Stan Mcmahon, PHILLIP 03/19/2025 9:15 AM EDT Office Visit [facility] [address] [address] Brandi Wyman APRN [address] [place] [address] Scheduled Procedures Name Priority Associated Diagnoses Date/Ti me TOTAL KNEE REPLACEMENT ROBOTIC ASSISTED-[facility] Primary osteoarthritis of left knee 03/06/2025 10:35 AM EDT documented as of this encounter Visit Diagnoses Not on filedocumented in this encounter Care Teams Ged Tutor Relationship Specialty Start Date End Date Jay Jay Deutsch MD [address] [facility] [address] [place] [phone] PCP - General 05/31/11 documented as of this encounter
--- OUTSIDE RECORDS SUMMARY | 2025-02-26 11:36 | XMS_ITS | Encounter Summary ---
Author Organization [facility] Address [address] [place] [address] Care Team Providers Care Chamber Walker Name Role Phone Jay Jay Deutsch MD Primary Care Provider [phone] Encounter Details Date Type Department Care Team (Late st Contact Info) Description 02/20/2025 Telephone [facility] [address] [place] [phone] Jay Jay Hanks MD [address] [place] [address] Social History Tobacco Use Types Packs/Day Years [...] encounter Miscellaneous Notes * Telephone Encounter - Mikayla Ordaz Athletic Trainer - 02/25/2025 10:19 AM EDT Spoke with patient, she requested to reschedule her appointment to 02/27/25 at the [facility] office following her CT scan. Fitting is scheduled for 3:15pm. * Telephone Encounter - Trinidad Dutton Athletic Trainer - 02/21/2025 3:04 PM EDT Called and spoke with patient. She is scheduled to stop by Kim at 8:15 on 02/28 for her walker fitting. * Telephone Encounter - Siena Segundo Clerical Staff - 02/21/2025 9:13 AM EDT Spoke w/ pt and scheduled surgery for 03/[address] scan rick 02/28 Cov. Pt aware that PCP clearance is needed prior to surgery. Will send consents via [employer]. Pt will need a walker. Please reach out to discuss. * Telephone Encounter - Siena Segundo Clerical Staff - 02/21/2025 9:03 AM EDT LVM trying to schedule surgery * Telephone Encounter - Eusebia Guillen ATC - 02/21/2025 8:57 AM EDT please advise * Telephone Encounter - Siena Segundo Clerical Staff - 02/20/2025 12:02 PM EDT WILL CALL TO SCHEDULE SX * Telephone Encounter - Olesya Thompson Clerical Staff - 02/20/2025 12:01 PM EDTSummary: PHONE CALL PT WOULD LIKE A CALL BACK TO GO OVER THINGS FOR HER UPCOMING SX PLEASE ADVISE documented in this encounter Plan of Treatment Upcoming Encounters Date Type Department Care Team (Late st Contact Info) Description 02/27/2025 2:30 PM EDT Appointment [facility] [facility] [address] [place] [address] Jay Jay Hanks MD [address] [place] [address] 02/27/2025 3:15 PM EDT Clinical Support [facility] [address] [address] 03/06/2025 10:35 AM EDT Hospital [facility] [address] [place] [address] Jay Jay Hanks MD [address] [place] [address] 03/06/2025 10:35 AM EDT Anesthesia Event [facility] [address] [place] [address] Michelet Cheema MD [address] [facility] [place] [phone] 03/06/2025 10:35 AM EDT - 03/06/2025 11:50 AM EDT Surgery [facility] [address] [address] Jay Jay Hanks MD [address] [place] [address] TOTAL KNEE REPLACEMENT ROBOTIC ASSISTED-[facility] 03/13/2025 12:00 PM EDT Office Visit [facility] [address] [place] [address] Stan Mcmahon, PHILLIP 03/19/2025 9:15 AM EDT Office Visit [facility] [address] [facility] [address] [place] [address] Brandi Wyman, DIESEL ENGINE MECHANIC [address] [place] [address] Scheduled Procedures Name Priority Associated Diagnoses Date/Ti me TOTAL KNEE REPLACEMENT ROBOTIC ASSISTED-[facility] Primary osteoarthritis of left knee 03/06/2025 10:35 AM EDT documented as of this encounter Visit Diagnoses Not on filedocumented in this encounter Care Teams Chamber Walker Relationship Specialty Start Date End Date Jay Jay Deutsch MD [address] [place] [address] [address] [place] [address] PCP - General 05/31/11 documented as of this encounter
--- OUTSIDE RECORDS SUMMARY | 2025-02-26 11:36 | XMS_ITS | Encounter Summary ---
Author Organization [facility] Address [address] [place] [address] Care Team Providers Care Die Welder Name Role Phone Jay Jay Deutsch MD Primary Care Provider [phone] [phone] Encounter Details Date Type Department Care Team (Late st Contact Info) Description 02/21/[address] [facility] [address] [place] [address] Jay Jay Hanks MD [address] [place] [address] Social History Tobacco Use Types Packs/Day Years [...] on file documented as of this encounter Plan of Treatment Upcoming Encounters Date Type Department Care Team (Late st Contact Info) Description 02/27/2025 2:30 PM EDT Appointment [facility] [address] [place] [address] Jay Jay Hanks MD [address] [place] [address] 02/27/2025 3:15 PM EDT Clinical Support [facility] [address] [place] [address] 03/06/2025 10:35 AM EDT Hospital [facility] [address] [place] [address] Jay Jay Hanks MD [address] [place] [address] 03/06/2025 10:35 AM EDT Anesthesia Event [facility] [address] [place] [address] Michelet Cheema MD [address] [facility] [place] [address] 03/06/2025 10:35 AM EDT - 03/06/2025 11:50 AM EDT Surgery Orthopaedic Surgery [address] [address] Jay Jay Hanks MD [address] [place] [address] TOTAL KNEE REPLACEMENT ROBOTIC ASSISTED-MIRIAM 03/13/2025 12:00 PM EDT Office Visit [facility] [address] [facility] [place] [address] [place] [address] Stan Mcmahon, PT 03/19/2025 9:15 AM EDT Office Visit [facility] [address] [facility] [place] [address] [place] [address] Brandi Wyman APRN [address] [place] [address] Scheduled Procedures Name Priority Associated Diagnoses Date/Ti me TOTAL KNEE REPLACEMENT ROBOTIC ASSISTED-MIRIAM Primary osteoarthritis of left knee 03/06/2025 10:35 AM EDT documented as of this encounter Visit Diagnoses Not on filedocumented in this encounter Care Teams Die Welder Relationship Specialty Start Date End Date Jay Jay Deutsch MD 1210 [facility] [address] [place] [phone] PCP - General 05/31/11 documented as of this encounter
--- OUTSIDE RECORDS SUMMARY | 2025-02-26 11:36 | XMS_ITS | Encounter Summary ---
Author Organization [facility] Address [address] [place] [address] Care Team Providers Care Embedder Name Role Phone Jay Jay Deutsch MD Primary Care Provider [phone] [phone] Encounter Details Date Type Department Care Team (Late st Contact Info) Description 02/19/2025 Telephone [facility] [place] [address] [place] [phone] Jay Jay Hanks MD [address] [place] [address] Social History Tobacco Use Types Packs/Day Years [...] encounter Miscellaneous Notes * Telephone Encounter - Damien Hernandez, Clerical Staff - 02/19/2025 4:35 PM EDT DISREGARD documented in this encounter Plan of Treatment Upcoming Encounters Date Type Department Care Team (Late st Contact Info) Description 02/27/2025 2:30 PM EDT Appointment [facility] [address] [place] [address] Jay Jay Hanks MD [address] [place] [address] 02/27/2025 3:15 PM EDT Clinical Support [facility] [address] [address] 03/06/2025 10:35 AM EDT Hospital En[facility] [address] [place] [address] Jay Jay Hanks MD [address] [place] [address] 03/06/2025 10:35 AM EDT Anesthesia [place] [address] Michelet Cheema MD [address] [facility] [place] [address] 03/06/2025 10:35 AM EDT - 03/06/2025 11:50 AM EDT Surgery [place] [address] Jay Jay Hanks MD [address] [place] [address] TOTAL KNEE REPLACEMENT ROBOTIC ASSISTED-MIRIAM 03/13/2025 12:00 PM EDT Office Visit [facility] [address] [facility] [address] [place] [address] Stan Mcmahon, PHILLIP 03/19/2025 9:15 AM EDT Office Visit [facility] [address] [address] Brandi Wyman APRN [address] [place] [address] Scheduled Procedures Name Priority Associated Diagnoses Date/Ti me TOTAL KNEE REPLACEMENT ROBOTIC ASSISTED-MIRIAM Primary osteoarthritis of left knee 03/06/2025 10:35 AM EDT documented as of this encounter Visit Diagnoses Not on filedocumented in this encounter Care Teams Embedder Relationship Specialty Start Date End Date Jay Jay Deutsch MD [facility] [place] [address] [place] [phone] PCP - General 05/31/11 documented as of this encounter
--- OUTSIDE RECORDS SUMMARY | 2025-02-26 11:36 | XMS_ITS ---
Author Organization Unknown Medications Medication Instructions Effective Dates (start - stop) Status ciprofloxacin 3 MG/ML / dexamethasone 1 MG/ML Otic Suspension 1269-15-25Z12:00:00.000+00 :00 - Completed 0.75 ML semaglutide 3.2 MG/M L Auto-Injector [Wegovy] 6303-18-92N34:00:00.000+00 :00 - Completed 0.75 ML semaglutide 3.2 MG/M L Auto-Injector [Wegovy] 5450-97-34U64:00:00.000+00 :00 - Completed 0.75 ML semaglutide 3.2 MG/M L Auto-Injector [Wegovy] 6731-58-95G74:00:00.000+00 :00 - Completed 0.75 ML semaglutide 3.2 MG/M L Auto-Injector [Wegovy] 5597-70-62S08:00:00.000+00 :00 - Completed 0.75 ML semaglutide 3.2 MG/M L Auto-Injector [Wegovy] 9281-26-30H88:00:00.000+00 :00 - Completed 0.75 ML semaglutide 3.2 MG/M L Auto-Injector [Wegovy] 2873-04-80M51:00:00.000+00 :00 - Completed 0.75 ML semaglutide 3.2 MG/M L Auto-Injector [Wegovy] 9976-17-65V49:00:00.000+00 :00 - Completed methocarbamol 750 MG Oral Tablet 2156-16-14I51:00:00.000+00 :00 - Completed methocarbamol 750 MG Oral Tablet 7831-99-30Q42:00:00.000+00 :00 - Completed levothyroxine sodium 0.1 MG Oral Tablet [Synthroid] 0633-34-93F26:00:00.000+00 :00 - Completed - 0531-58-75I17:00 :00.000+00 :00 - Completed methocarbamol 750 MG Oral Tablet 4861-84-56K14:00:00.000+00 :00 - Completed levothyroxine sodium 0.05 MG Oral Tablet [Synthroid] 3418-93-05W32:00:00.000+00 :00 - Completed duloxetine 60 MG Delayed Rel ease Oral Capsule 1748-37-60B03:00:00.000+00 :00 - Completed levofloxacin 500 MG Oral Tablet 8179-84-00H25:00:00.000+00 :00 - Completed levothyroxine sodium 0.05 MG Oral Tablet [Synthroid] 8745-88-10S26:00:00.000+00 :00 - Completed 0.75 ML semaglutide 3.2 MG/M L Auto-Injector [Zeenshare] 1168-33-22B67:00:00.000+00 :00 - Completed duloxetine 60 MG Delayed Rel ease Oral Capsule 3970-39-56V87:00:00.000+00 :00 - Completed methocarbamol 750 MG Oral Tablet 5129-90-73F81:00:00.000+00 :00 - Completed methocarbamol 750 MG Oral Tablet 4910-35-84Z00:00:00.000+00 :00 - Completed methocarbamol 750 MG Oral Tablet 4300-54-70U42:00:00.000+00 :00 - Completed meloxicam 15 MG Oral Tablet 2022:00:00.000+00 :00 - Completed 0.75 ML semaglutide 3.2 MG/M L Auto-Injector [Zeenshare] 4014-96-02D56:00:00.000+00 :00 - Completed methocarbamol 750 MG Oral Tablet 0914-31-23R29:00:00.000+00 :00 - Completed 0.75 ML semaglutide 3.2 MG/M L Auto-Injector [Zeenshare] 9400-98-38D99:00:00.000+00 :00 - Completed doxycycline hyclate 100 MG O ral Capsule 5234-82-84V36:00:00.000+00 :00 - Completed methocarbamol 750 MG Oral Tablet 9834-39-59B74:00:00.000+00 :00 - Completed levothyroxine sodium 0.05 MG Oral Tablet [Synthroid] 8982-70-24K81:00:00.000+00 :00 - Completed methocarbamol 750 MG Oral Tablet 5845-02-06E95:00:00.000+00 :00 - Completed meloxicam 15 MG Oral Tablet 2022:00:00.000+00 :00 - Completed meloxicam 15 MG Oral Tablet 2022:00:00.000+00 :00 - Completed meloxicam 15 MG Oral Tablet 2022:00:00.000+00 :00 - Completed fluconazole 150 MG Oral Tablet 2 969-77-92S76:00:00.000+00 :00 - Completed hydrochlorothiazide 12.5 MG Oral Tablet 1850-58-89H89:00:00.000+00 :00 - Completed hydrochlorothiazide 12.5 MG Oral Tablet 8609-69-07Z26:00:00.000+00 :00 - Completed duloxetine 60 MG Delayed Rel ease Oral Capsule 4043-70-08C31:00:00.000+00 :00 - Completed fluconazole 150 MG Oral Tablet 2 431-83-74S58:00:00.000+00 :00 - Completed duloxetine 30 MG Delayed Rel ease Oral Capsule 5615-10-39K83:00:00.000+00 :00 - Completed hydrochlorothiazide 12.5 MG Oral Tablet 7557-02-41X23:00:00.000+00 :00 - Completed cefdinir 300 MG Oral Capsule 11-04-06:00:00.000+00 :00 - Completed montelukast 10 MG Oral Tablet 25-08-14:00:00.000+00 :00 - Completed duloxetine 30 MG Delayed Rel ease Oral Capsule 8822-18-74U15:00:00.000+00 :00 - Completed duloxetine 60 MG Delayed Rel ease Oral Capsule 2052-86-12Y81:00:00.000+00 :00 - Completed fluconazole 150 MG Oral Tablet 2 603-01-12V39:00:00.000+00 :00 - Completed montelukast 10 MG Oral Tablet 20 25-02-12:00:00.000+00 :00 - Completed meloxicam 7.5 MG Oral Tablet 202 10-15-22:00:00.000+00 :00 - Completed {6 (azithromycin 250 MG Oral Tablet) } Pack 3622-24-85P75:00:00.000+00 :00 - Completed celecoxib 200 MG Oral Capsule 20 24-11-13:00:00.000+00 :00 - Completed hydrochlorothiazide 12.5 MG Oral Tablet 9715-76-26N33:00:00.000+00 :00 - Completed hydrochlorothiazide 12.5 MG Oral Tablet 3099-78-27I71:00:00.000+00 :00 - Completed fluconazole 150 MG Oral Tablet 2 516-17-82I64:00:00.000+00 :00 - Completed montelukast 10 MG Oral Tablet 20 24-11-13:00:00.000+00 :00 - Completed fluconazole 150 MG Oral Tablet 2 279-83-57O87:00:00.000+00 :00 - Completed fluconazole 150 MG Oral Tablet 2 444-36-32B28:00:00.000+00 :00 - Completed duloxetine 60 MG Delayed Rel ease Oral Capsule 5124-25-99N95:00:00.000+00 :00 - Completed duloxetine 60 MG Delayed Rel ease Oral Capsule 7466-36-15J37:00:00.000+00 :00 - Completed montelukast 10 MG Oral Tablet 20 26-05-07:00:00.000+00 :00 - Completed duloxetine 30 MG Delayed Rel ease Oral Capsule 7254-20-97G66:00:00.000+00 :00 - Completed meloxicam 7.5 MG Oral Tablet 202 10-12-21:00:00.000+00 :00 - Completed {21 (methylprednisolone 4 MG Oral Tablet) } Pack [id number]:00:00.000+00 :00 - Completed fluconazole 150 MG Oral Tablet 2 767-34-90M75:00:00.000+00 :00 - Completed celecoxib 200 MG Oral Capsule 27-10-13T00:00:00.000+00 :00 - Completed Patient Care team information Name Category Status Period Participants - - Proposed period not known -
--- OUTSIDE RECORDS SUMMARY | 2025-02-26 11:36 | XMS_ITS | Referral Summary ---
Author Organization [facility] Address [address] [place] [address] Phone Care Team Providers Care Polymer Tester Name Role Phone Get NORRIS, Leyla NORRIS Primary Care Provider + Allergies Active Allergy Reactions Criticality Noted Date Comments Ampicillin 09/20/2004 Cephalosporins 09/20/2004 Medications MELOXICAM 15 mg by Does Not Apply route daily. Active METHOCARBAMOL PO Take 750 mg by mouth. 2-3 times per day prn Active Montelukast Sodium (SINGULAIR PO) Take by mouth. Active Fluticasone Furoate (FLONASE SENSIMIST NA) Use. Active DULoxetine (CYMBALTA) 30 MG CPEP Take 60 mg by mouth daily. Active albuterol 108 (90 Base) mcg/puff inhaler Use 2 puffs every 6 (six) hours as needed. Active VITAMIN D PO Take by mouth. Active pregabalin (LYRICA) 75 MG CAPS Take 75 mg by mouth 2 (two) times daily. Active metFORMIN (GLUCOPHAGE) 500 MG TABS Take 500 mg by mouth 2 (two) times daily with meals. Active levocetirizine (XYZAL) 5 mg tablet Take 5 mg by mouth nightly. Active SYNTHROID 50 MCG TABSIndications: Primary hypothyroidism,F amily history of diabetes mellitus (DM) TAKE 1 TABLET BY MOUTH EVERY DAY 90 tablet 2 08/26/2024 Active Active Problems Problem Noted Date Diagnosed Date Acquired hypothyroidism 2016 Family history of diabetes mellitus (DM) 014 Obesity 06/19/2014 Other malaise and fatigue 10/18/2004 Resolved Problems Problem Noted Date Diagnosed Date Resolved Date Hypothyroidism 04/15/2006 2016 Immunizations Immunization Administration Dates Next Due COVID-19 mRNA Vaccine (Pfizer EUA 12+) Purple Ca p 10/21/2020,09/24/2020 Influenza Vaccine, Inactivated, Quadrivalent PF 06/19/2014 Social History Tobacco Use Types Packs/Day Years Used Date Smoking Tobacco: Never Smokeless Tobacco: Never Tobacco Cessation:Counseling Given: Not Answered Alcohol Use Standard Drinks/Week Comments No 0 (1 standard drink = 0.6 oz pur e alcohol) Food Insecurities Answer Date Recorded Worried about running out of food Not on file 09/23/2023 Food Bought Not on file 09/23/2023 Housing/Utilities Answer Date Recorded Worried about losing home Not on file 2023 Stayed outside house Not on file 09/23/2023 Unable to get utilities Not on file 09/23/19 Interpersonal Safety Answer Date Record ed Feel physically or emotionally unsafe where curr ently live Not on file 09/23/2023 Harm by anyone Not on file 09/23/2023 Emotionally Harmed Not on file 09/23/2023 Transportation Answer Date Recorded Worried about transportation Not on file Comments No Sex and Gender Information Value Date Recorded Sex Assigned at Not on file Legal Sex Female 5:26 PM EDT Gender Identity Not on file Sexual Orientation Not on file Last Filed Vital Signs Vital Sign Reading Time Taken Comments Blood Pressure 118/62 07/31/2024 11:54 AM EST Pulse 69 07/31/2024 11:54 AM EST Temperature 36.5 C (97.7 F) 07/29/2020 9:18 AM EST Respiratory Rate - - Oxygen Saturation - - Inhaled Oxygen Concentration - - Weight 116.1 kg (256 lb) 07/31/2024 11:54 AM EST Height 157.5 cm (5' 2 ) 07/31/2024 11:54 AM EST Body Mass Index 46.82 07/31/2024 11:54 AM EST Plan of Treatment Upcoming Encounters Date Type Department Care Team (Late st Contact Info) Description 07/30/2025 12:00 PM EST Office Visit [facility] [place] [address] Estrella Ann MD [address] [place] [address] Insurance JON HOBSON ALL OTHERS NOT MEDICARE Care Teams Polymer Tester Relationship Specialty Start Date End Date Leyla Deutsch MD, [address] [address] PCP - General 04/29/08
--- OUTSIDE RECORDS SUMMARY | 2025-02-26 11:36 | XMS_ITS | Encounter Summary ---
Author Organization [facility] [place] [address] Care Team Providers Care Principal Software Architect Name Role Phone Jay Jay Deutsch MD Primary Care Provider [phone] Encounter Details Date Type Department Care Team (Latest Contact Info) Description 02/24/2025 Travel Social History Tobacco Use Types Packs/Day Years [...] Info) Description 02/27/2025 2:30 PM EDT Appointment [facility] [address] [place] [address] Ja yJay Hanks MD [address] [place] [address] 02/27/2025 3:15 PM EDT Clinical Support [facility] [address] [place] [address] 03/06/2025 10:35 AM EDT Hospital [facility] [address] [place] [address] Jay Jay Hanks MD [address] [place] [address] 03/06/2025 10:35 AM EDT Anesthesia Event [facility] [address] [place] [address] Michelet Cheema MD [address] [facility] [facility] [address] [facility] [place] [address] 03/06/2025 10:35 AM EDT - 03/06/2025 11:50 AM EDT Surgery Orthopa[facility] Surgery [address] [address] Jay Jay Hanks MD [address] [place] [address] TOTAL KNEE REPLACEMENT ROBOTIC ASSISTED-[facility] 03/13/2025 12:00 PM EDT Office Visit [facility] [address] [place] [address] Stan Mcmahon, PT 03/19/2025 9:15 AM EDT Office Visit [facility] [address] [place] [address] Brandi Wyman APRN [address] [place] [address] Scheduled Procedures Name Priority Associated Diagnoses Date/Ti me TOTAL KNEE REPLACEMENT ROBOTIC ASSISTED-[facility] Primary osteoarthritis of left knee 03/06/2025 10:35 AM EDT documented as of this encounter Visit Diagnoses Not on filedocumented in this encounter Care Teams Principal Software Architect Relationship Specialty Start Date End Date Jay Jay Deutsch MD 12[address] [facility] [address] [facility] [place] [phone] PCP - General 05/31/11 documented as of this encounter
--- OUTSIDE RECORDS SUMMARY | 2025-02-26 11:36 | XMS_ITS | Encounter Summary ---
Author Organization [facility] Address [address] [place] [address] Care Team Providers Care Sewing Machine Operator Zipper Name Role Phone Jay Jay Deutsch MD Primary Care Provider [phone] Encounter Details Date Type Department Care Team (Late st Contact Info) Description 02/21/2025 Orders Only [facility] [address] [place] [address] Jay Jay Hanks MD [address] [place] [address] Primary osteoarthritis of left knee (Primary Dx) [...] 02/27/2025 2:30 PM EDT Appointment [facility] [place] [facility] [address] [place] [address] Jay Jay Hanks MD [address] [place] [address] 02/27/2025 3:15 PM EDT Clinical Support [facility] [address] [place] [address] 03/06/2025 10:35 AM EDT Hospital En[facility] [address] [place], [place] [id number] Jay Jay Hanks MD [address] [place] [address] 03/06/2025 10:35 AM EDT Anesthesia Event [facility] [address] [place] [address] Michelet Cheema MD [address] [facility] [address] [facility] [place] [address] 03/06/2025 10:35 AM EDT - 03/06/2025 11:50 AM EDT Surgery Orthopaedic Surgery [place] [id number] Jay Jay Hanks MD [address] [place] [address] TOTAL KNEE REPLACEMENT ROBOTIC ASSISTED-[facility]IR[facility] 03/13/2025 12:00 PM EDT Office Visit [facility] [address] [facility] [address] [place] [address] Stan Mcmahon, PHILLIP 03/19/2025 9:15 AM EDT Office Visit [facility] [address] [facility] [address] [place] [address] Brandi Wyman APRN [address] [place] [phone] Scheduled Orders Name Type Priority Associated Diagnoses Orde r Schedule SURGICAL/PROCEDURE CASE REQUEST - [facility] Procedures Routine Primary osteoarthritis of left knee Ordered: 02/21/2025 Scheduled Procedures Name Priority Associated Diagnoses Date/Ti me TOTAL KNEE REPLACEMENT ROBOTIC ASSISTED-MIRIAM Primary osteoarthritis of left knee 03/06/2025 10:35 AM EDT documented as of this encounter Visit Diagnoses Diagnosis Primary osteoarthritis of left knee- Primary Primary localized osteoarthrosis, lower leg Primary osteoarthritis of left knee- Primary Primary localized osteoarthrosis, lower leg Primary osteoarthritis of left knee Primary localized osteoarthrosis, lower leg documented in this encounter Care Teams Sewing Machine Operator Zipper Relationship Specialty Start Date End Date Jay Jay Deutsch MD 1210 [facility] [address] [place] [phone] PCP - General 05/31/11 documented as of this encounter
--- OUTSIDE RECORDS SUMMARY | 2025-02-26 11:37 | XMS_ITS | Data Portability ---
Author Organization [facility] [employer] Address [address] [place] [address] Care Team Providers Care Lead Producer Name Role Phone NORA RHODESORY Primary Care Provider [phone] Assessment Encounter Date Assessment Date Assessment LastModified by Organization Details LastModified Time 02/28/2024 02/28/2024 I spent a total of 45 minutes of which 15 minutes was spent in counseling and/or coordination of care with patient and/or family including: treatment options, patient s progress, side effects, test results, etc. and I also spent 10 minutes documenting visit with dictation and will follow-up with patient results of testing, including blood work. Not available 02/28/2024 14:47:04 03/06/2024 03/06/2024 I spent a total of 35 minutes of which 15 minutes was spent in counseling and/or coordination of care with patient and/or family including: treatment options, patient s progress, side effects, test results, etc. and I also spent 10 minutes documenting visit with dictation and will follow-up with patient results of testing, including blood work. Not available 03/06/2024 16:15:35 Plan of Treatment Reminders Order Date Submit Date Provider Last Modified By Organization Details Last Modified Time Details Appointments None recorded. Lab None recorded. Referral None recorded. Procedures None recorded. Surgeries None recorded. Imaging None recorded. Medication Orders amoxicillin 250 mg/5 mL oral suspension 2023 [id number] [address] [facility], [place], [address], 15:09:26 Patient TargetsNo targets recorded. Patient Instructions Encounter Date Encounter Id Patient Instructions Last Modified By Organization Details Last Modified Time 02/28/2024 [id number] drug allergy: care instructions Not available 02/28/2024 15:08:59 learning about penicillin allergy Not available 02/28/2024 15:08:59 Reason for Referral None Reported. Problems Name Problem SNOMED Code Status Onset Date Resolution Date Notes Provider Name and Address Organization Details Recorded Time [facility] [id number] Active 2023 Doug Centeno MD [address] [place] [address],[address] [place] [address], [phone] , [place] [employer] [facility] 14:28:41 Fusion of thoracic spine Active 2023 Doug Centeno MD [address] [place] [address],[address] [place] [address], [phone] , [place] [employer] [facility] 14:29:04 Lumbar spinal fusion Active 2023 Doug Centeno MD [address] [place] [address],[address] [place] [address], [phone] , [place] [employer] [facility] 14:29:12 History of cervical spine fusion 7576041762702 Active 2023 Doug Centeno MD [address] [place] [address],[address] [place] [address], [phone] , [place] [employer] [facility] 14:29:36 Lymphedema 005652579 Active 2023 Doug Centeno MD [address] [place] [address],[address] [place] [address], [phone] , [place] [employer] [facility] 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 14:45:39 Problem Notes None recorded. Procedures Surgical History Date Name Laterality Status Provider Name and Address Organization Details Recorded Time 03/06/20 24 Oral Challenge completed Regina Raven [place] - [facility] 03/06/2024 15:32:56 11/30/19 24 Back Surgery completed Keely Liliya [place] - [facility] 02/28/2024 13:15:33 08/01/20 23 Colonoscopy completed Keely Liliya [place] - [facility] 02/28/2024 13:15:33 02/11/20 23 Ear Tube completed Keely Liliya [place] - [facility] 02/28/2024 13:15:33 01/27/20 23 Joint Replacement completed Keely Liliya [place] - [facility] 02/28/2024 13:15:33 08/25/20 22 Back Surgery completed Keely Liliya [place] - [facility] 02/28/2024 13:15:34 05/19/20 21 Joint Replacement completed Keely Liliya [place] - [facility] 02/28/2024 13:15:33 02/17/20 20 Arthroscopic Surgery completed Keely Liliya [place] - [facility] 02/28/2024 13:15:33 02/01/20 19 Breast Surgery completed Keely Liliya [place] - [facility] 02/28/2024 13:15:33 04/04/20 18 Eye Surgery completed Keely Liliya [place] - [facility] 02/28/2024 13:15:33 10/31/19 17 Cancer Surgery completed Keely Liliya [place] - [facility] 02/28/2024 13:15:33 03/02/20 16 Back Surgery completed Keely Liliya [place] - [facility] 02/28/2024 13:15:33 01/29/20 08 Back Surgery completed Keely Liliya [place] - [facility] 02/28/2024 13:15:33 01/19/20 05 Septoplasty completed Keely Liliya [place] - [facility] 02/28/2024 13:15:33 05/28/19 96 Hysterectomy completed Keely Liliya [place] - [facility] 02/28/2024 13:15:33 01/06/19 93 Tubal Ligation completed Keely Liliya [employer] [facility] 02/28/2024 13:15:33 11/09/18 76 Tonsillectomy completed Keely Liliya [employer] [facility] 02/28/2024 13:15:33 11/09/18 76 Adenoid Surgery completed Keely Liliya [employer] [facility] 02/28/2024 13:15:33 Imaging Results None recorded. Procedure Notes None recorded. Medical Equipment None Reported. Allergies Allergen ID Allergen Name Allergen Category Reaction Reaction Severity Criticality Documentation Date Start Date Code Code System Note Provider Name and Address Organization Details Recorded Time 05654 Substance with morphinan structure and opioid receptor agonist mechanism of action (substanc e) medicatio n hives swelling moderate moderate Not available 02/28/20242018 18033 9000 SNOMED Keely Liliya null, [employer] [facility] 13:15:10 31075 Medicinal product containin g cephalosp jorje and acting as antibacte rial agent (product) medicatio n diarrhea severe Not available 02/28/20241997 93261 9009 SNOMED Keely Liliya null, [employer] [facility] 13:15:10 72724 codeine medicatio n hives swelling moderate moderate Not available 02/28/20242018 2670 RxNorm Keely Liliya null, [place] - [facility] 13:15:10 13920 ampicilli n medicatio n rash moderate Not available 02/28/20241973 733 RxNorm Keely Liliya null, [place] - [facility] 13:15:10 08420 clindamyc in Not available rash severe Not available 02/28/20242023 2582 RxNorm Keely Liliya null, [place] - [facility] 13:15:10 82079 adhesive tape environme nt,medica tion rash severe Not available 02/28/20242023 04626 UNK Keely Liliya null, [place] - [facility] 13:15:10 39447 vancomyci n medicatio n rash severe Not available 02/28/20242023 73233 RxNorm Keely Liliya [facility] 13:15:10 Medications Name Sig Start Date Stop Date Status Note LastModified by Organization Details LastModified Time hydrocortis one 0.5 % topical cream active Not Available Not Available Not Available prednisone 10 mg tablet TAKE 2 TABLETS BY MOUTH ONCE A DAY 20 DAY(S) 03/06 completed Not Available Not Available Not Available azithromyci n 250 mg tablet TAKE 2 TABLETS BY MOUTH TODAY THEN 1 TABLET BY MOUTH ONCE A DAY FOR 4 DAYS 03/06 completed Not Available Not Available Not Available fluconazole 150 mg tablet TAKE 1 TABLET BY MOUTH EVERY DAY FOR 1 DAY active Not Available Not Available No t Available hydrocodone 5 mg-acetamin ophen 325 mg tablet active Not Available Not Available No t Available meloxicam 15 mg tablet TAKE 1 TABLET BY MOUTH EVERY DAY active Not Available Not Available No t Available phentermine 37.5 mg tablet TAKE 1 TABLET (37.5 MG) BY ORAL ROUTE ONCE DAILY ONE OR TWO HOURS AFTER BREAKFAST 03/06 completed Not Available Not Available Not Available sulfamethox azole 800 mg-trimetho prim 160 mg tablet TAKE 1 TABLET BY MOUTH TWICE A DAY FOR 10 DAYS 03/06 completed Not Available Not Available Not Available triamcinolo ne acetonide 0.1 % topical cream APPLY EXTERNALL Y THREE TIMES A DAY DIRECTED active Not Available Not Available No t Available famotidine 20 mg tablet active Not Available Not Available Not Available methocarbam ol 750 mg tablet TAKE 1 TABLET BY MOUTH TWICE A DAY NEEDED active Not Available Not Available No t Available amoxicillin 250 mg/5 mL oral suspension Take 5 mL every day by oral route as directed. active Not Available Not Available No t Available doxycycline monohydrate 100 mg capsule TAKE ONE CAPSULE BY MOUTH TWICE DAILYF OR 10 DAYS active Not Available Not Available No t Available dexamethaso ne 2 mg tablet TAKE 1 TABLET BY MOUTH EVERY 12 HOURS FOR 5 DAYS 03/06 completed Not Available Not Available Not Available pantoprazol e 40 mg tablet,demetrio yed release active Not Available Not Available Not Available oseltamivir 75 mg capsule TAKE 1 CAPSULE BY MOUTH TWICE DAILY FOR 5 DAYS active Not Available Not Available No t Available Synthroid 50 mcg tablet TAKE 1 TABLET BY MOUTH EVERY DAY active Not Available Not Available No t Available montelukast 10 mg tablet TAKE 1 TABLET BY MOUTH EVERYDAY AT BEDTIME active Not Available Not Available No t Available hydroxyzine HCl 25 mg tablet TAKE 1 TABLET BY MOUTH EVERY 6 HOURS NEEDED 03/06 completed Not Available Not Available Not Available mupirocin 2 % topical ointment APPLY TOPICALLY 2 TIMES DAILY TO EACH NOSTRIL WITH COTTON APPLICATO R STARTING 5 DAYS BEFORE SURGERY active Not Available Not Available No t Available levofloxaci n 750 mg tablet TAKE 1 TABLET BY MOUTH EVERY DAY FOR 5 DAYS 03/06 completed Not Available Not Available Not Available methylpredn isolone 4 mg tablets in a dose pack TAKE 6 TABLETS ON DAY 1 DIRECTED ON PACKAGE AND DECREASE BY 1 TAB EACH DAY FOR A TOTAL OF 6 DAYS 03/06 completed Not Available Not Available Not Available albuterol sulfate HFA 90 mcg/actuati on aerosol inhaler INHALE 2 PUFFS BY MOUTH 4 TIMES A DAY NEEDED active Not Available Not Available No t Available diazepam 5 mg tablet active Not Available Not Available No t Available tobramycin 0.3 %-dexametha sone 0.1 % eye drops,suspe nsion PLACE 4 DROPS INTO THE LEFT EAR TWICE DAILY FOR 10 DAYS, THEN NEEDED. 03/06 completed Not Available Not Available Not Available azithromyci n 500 mg tablet TAKE 1 TABLET BY MOUTH EVERY DAY FOR 3 DAYS 03/06 completed Not Available Not Available Not Available Cymbalta 60 mg capsule,del ayed release 1 capsule every day by oral route. active Not Available Not Available No t Available pregabalin 50 mg capsule TAKE 1 CAPSULE BY MOUTH 3 TIMES DAILY . active Not Available Not Available No t Available pregabalin 75 mg capsule 1 capsule twice a day by oral route. active Not Available Not Available No t Available pregabalin 150 mg capsule TAKE 1 CAPSULE BY MOUTH TWICE DAILY. active Not Available Not Available No t Available hydrochloro thiazide 12.5 mg tablet TAKE 1 TABLET BY MOUTH EVERY DAY IN THE MORNING NEEDED 30 DAY(S) active Not Available Not Available No t Available Xyzal 5 mg tablet 1 tablet every day by oral route. 2023 active Not Available Not Available Not Avai lable Xarelto 15 mg tablet Take 1 tablet twice a day by oral route. 03/06 completed Not Available Not Available Not Available Xarelto 20 mg tablet TAKE 1 TABLET BY MOUTH EVERY DAY WITH FOOD FOR 30 DAYS active Not Available Not Available No t Available Flonase Sensimist 27.5 mcg/actuati on nasal spray,suspe nsion 2 sprays as needed by nasal route. active Not Available Not Available No t Available Plenvu 140 gram-9 gram-5.2 gram powder packs TAKE DIRECTED FOR COLONOSCO PY active Not Available Not Available No t Available Breztri Aerosphere 160 mcg-9mcg-4. 8mcg/actuat ion HFA aerosol inhaler INHALE 2 PUFFS INTO THE LUNGS TWICE A DAY active Not Available Not Available No t Available Wegovy 2.4 mg/0.75 mL subcutaneou s pen injector INJECT 2.4 MG UNDER THE SKIN ONCE WEEKLY active Not Available Not Available No t Available Flowflex COVID-19 Antigen Home Test kit FOLLOW INSTRUCTI ONS INCLUDED WITH THE PACKAGE. active Not Available Not Available No t Available Vitals Date Recorded Body height Body mass index (BMI) Body weight Heart rate Respiratory rate Systolic blood pressure Diastolic blood pressure Provider Name and Address Organization Details Last Updated DateTime 157.48 cm 46.2 kg/m2 730546. 43 g 75 /min 20 /min 153 mm[Hg] 76 mm[Hg] Keely [place] [facility] 13:22:44 Social History Question Answer Notes LastModified by [employer] Details LastModified Time Tobacco Smoking Status Never Smoker FRANSISCO Vidal [facility] 02/28/2024 13:15:29 What Type Of Diet Are You Following? REGULAR Information not available 02/28/2024 Which Illicit Or Recreational Drugs Have You Used? N/a Information not available 02/28/2024 Pets At Home? Cats Information not available 02/28/2024 Housing Single Family Home Information not available 02/28/2024 What Was The Date Of Your Most Recent Tobacco Screening? 02/28/2024 Information not available 02/28/2024 What Is Your Relationship Status? Information not available 02/28/2024 Are You Passively Exposed To Smoke? No Information no t available 02/28/2024 How Much Tobacco Do You Smoke? No Information not available 02/28/2024 Sex: Unknown Functional Status Question Answer Note LastModified by Organizat ion Details LastModified Time What is your level of alcohol consumption? 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 [id number] Information not available 02/28/2024 Family History Relationship Description Onset Age of this Age Resolved Age Notes LastModified by Organization Details LastModified Time Daughter Asthma Not availabl e 02/28/2024 13:15:14 Paternal Grandmother Obesity Not available 02/03 13:15:14 Mother Obesity Not available 02/28/2024 13:15:14 Maternal Grandmother Diabetes mellitus Not available 2023 13:15:14 Maternal Grandmother Kidney disease 90 Not available 2023 13:15:14 Sister Seizure disorder 43 Not available 2023 13:15:14 Maternal Grandfather Alzheimer's disease Not available 2023 13:15:14 Paternal Grandfather Obesity Not available 02/03 13:15:14 Medical History Condition Response Coronary Artery Disease N ANGIOEDEMA N Gout N Kidney Stones N Hyperthyroidism N RHINITIS Y Hypothyroidism Y COPD N Depression Y DRUG ALLERGY Y Anxiety Disorder N Diabetes N Arthritis Y Tuberculosis N Cancer Y Stroke N Diverticulitis N Asthma Y HIVES Y ECZEMA N GERD/Reflux Y High Cholesterol N Liver Disease N Heart Disease N Pulmonary Embolism Y Fibromyalgia Y Hypertension N Osteoporosis N Kidney Disease N FOOD ALLERGY N Gynecological HistoryNo gynecological history recorded. 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.3 based on history Adverse re action to drug 93517694 T50.905A hx of opiate sensitivit y probably associated with dermatogra phiano anaphylaxi s by historyPla n if needed shoul be able to tolerate oral opiate with antihistam ine pre-medica tion Allergy to penicillin 91 376760 Z88.0 by hx during childhoodP lantest dose schedule Allergy to drug 51380728 2 Z88.9 severe rash assoicated wtih clindamyci n and/or penicillin Planavoid clindamyci n [id number] Doug Centeno MD [address] [place] [phone] 03/06/2024 14:23:56 03/06/2024 16:23:51 Penicillin adverse reaction 851092356 T36.0X5D negative challenge to 375 mg of oral amoxicilli n okay to take penicillin drugs in the futurePlan delabel penicillin allergy from chart Adverse re action to drug 52259510 T50.905A hx of opiate sensitivit y probably associated with dermatogra phiano anaphylaxi s by historymartha stevenson allergic to clindamyci n but not vancomycin associated with hives Plan if needed should be able to tolerate vancomycin with antihistam ine pre-medica tionfor opiate, fentanyl would be okay but need to have antihistam ine premedicat ion cannot rule allergy to clindamyci n, no test available and would avoid Health Concerns Section Related Observation LastModified by Organization Chengai chitra LastModified Time None Recorded Concern Status LastModified by Organization Details LastModified Time None Recorded Advance Directives Directive None Recorded Payers Insurance Date Sequence Insurance Name Policy Number Policy Adamson Covered Member ID Adamson Member ID Guarantor Name 03/05/2024 1 [facility] [id number] Eleonora Hernandez [id number] Eleonora Hernandez Notes Date Note Type Note Provider Name and Address Organization Details Recorded Time 02/28/2024 text/html Asthma & Rhiniti s Questionnaires - PARDEEP/JCGReported bypatient.Does the patient report breathing problems?Yes Severity:Q1 4; Q2 3; Q3 5; Q4 3; Q5 3; Total 18 Does the patient report nasal/allergy symptoms?Yes Rhinitis VAS (10=best)Rhinitis Score 8 Symptomsnasal congestion;post-nasal drip;ocular watering;headache;ear fullness Ms. 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 Regarding her allergic reactions there are:- Oxycodone, hives on bottom of soles of feet, responded to benadryl. This was 5-7 years ago, unsure how quickly symptoms appeared, possibly within 24-48 hours, resolved within 3 days- Codeine, hives on bottom of soles of feet, unsure how quickly symptoms appeared, possibly within 24-48 hours, resolved within 3 days. She tolerated tylenol #3 (codeine) in 1986 without problems. - Clindamycin and Vancomycin (11/2023) surgery at [facility], also had received an opiate while in PACU. Rash on back and trunk that appeared several days after surgery (Monday surgery, Monday, red raised, pruritic rash appeared). On Monday, rash became confluent erythematous patch on her right superior collarbone and neck that extended to her posterior back. She then developed hives on bilateral extremities 10 days after surgery. This is the first time she had the rash appear. Her incision was irritated and it was thought that her clindamycin/vancomyci n ampules/pearls that were left in her spine for antibiotics. Her back then worsened and she presented to the hospital where Eosinophils were 90, and was started on steroids. She never had eye or lip involvement. She has tolerated clindamycin and vancomycin prior to the procedure. - Ampicillin, rash, childhood unsure if she was sick at that time, but likely sore throat. She has avoided penicillin, ampicillin, amoxicillin, and augmentin for life. - Cephalosporins: She states with cephalosporin she had C. diff diarrhea. She has been valuated by an corporate law assistant in [facility] in 2004, and positive SPT, for 2-[address] Winston (Agricultural Services Director) and Dr. Lynn (Agricultural Services Director) evaluated previously. Levocetirizine 5 mg once daily for seasonal allergies and PND. Doug Centeno MD [address] [place] [address],[address] [place] [address], [phone], [facility] 02/28/2024 15:09:03 03/06/2024 text/html tolerated amoxic illin challenge without rash or hiveshas hx of opiate induced hiveson xyzal daily and this helps dermatographism Doug Centeno MD [address] [place] [address],[address] [place] [address], [place], [phone], [facility] 03/06/2024 16:21:16 OBGyn Episode No OBEpisode recorded.
--- OUTSIDE RECORDS SUMMARY | 2025-02-26 11:37 | XMS_ITS | Data Portability ---
Author Organization [facility] Address [address] [facility] [address] [place] [address] Care Team Providers Care Anthropological Linguist Name Role Phone DARYL CAMEJO Referring Provider [phone] SMITA RHODES Primary Care Provider [phone] JEFF COOPER Deicer Finisher Assessment No assessment recorded. Plan of Treatment Reminders Order Date Submit Date Provider Last Modified By Organization Details Last Modified Time Details Appointments None recorded. Lab None recorded. Referral None recorded. Procedures None recorded. Surgeries None recorded. Imaging None recorded. Medication Orders mupirocin 2 % topical ointment 2023 024 dave [facility]acy #[id number], [facility] [place], [address], 4 16:34:33 doxycycline hyclate 100 mg capsule 2023 025 [facility]/Pharmacy #[id number], [address] [place], [address], 5 14:10:48 TobraDex 0.3 %-0.1 % eye drops,suspe nsion 2023 025 [facility] [address] [facility] [place], [address], 5 14:11:51 Patient TargetsNo targets recorded. Patient Instructions Encounter Date Encounter Id Patient Instructions Last Modified By Organization Details Last Modified Time 06/28/2023 [id number] 1. Left Tympanos lazaro tube placement performed. Full risks, complications, and benefits of non-operative intervention have been thoroughly discussed. Understanding was expressed, informed consent given, and we will proceed with the discussed treatment plan. There were no questions for me at the end of the office visit. 2. EGD recommended and ordered- Dr. Jeff Cooper 3. F/u in 6 months [email or web address] Not available 06/28/2023 15:29:46 02/02/2024 [id number] 1. Begin new RX- Tobradex 4 drops in the left ear BID this should help reduce some of the granulation tissue in the drainage. If it does not clear this up the tube may need to be removed. 2. F/u in 2-4 weeks dave Not available 02/02/2024 17:10:20 02/16/2024 [id number] 1. Utilize Tobra dex at onset of ear infections or otorrhea 2. F/u in 6 months [email or web address] Not available 02/16/2024 15:20:58 08/23/2024 [id number] 1. Left cerumenectomy performed in office today. I was able to get the cerumen plug removed from the indwelling ear tube. It seemed to clear the path. 2. Rx - Mupirocin 2 % topical ointment from ; APPLY A SMALL AMOUNT TO THE AFFECTED AREA BY TOPICAL ROUTE 3 TIMES PER DAY PRN 3. Rx - Start doxycycline hyclate 100 mg capsule; 1 capsule 2 times a day for 10 days 4. Follow up in 6 mo. would recommend nasopharyngoscopy and laryngoscopy at that visit. dave Not available 08/23/2024 16:28:06 11/27/2024 [id number] 1. Left ear tube removal from EAC (foreign body removal) performed in office today. Full risks, complications, and benefits of non-operative intervention have been thoroughly discussed. She had some local infection around the tube which was cleared. She has severe retraction of the posterior drum on the left but no evidence of middle ear effusion 2. Resume Tobradex , 4 drops in the left ear BIDx4, then prn 3. F/u 02/25/25 (already scheduled) dave Not available 11/27/2024 15:25:15 Reason for Referral None Reported. Problems No Known Problems Procedures Surgical History Date Name Laterality Status Provider Name and Address Organization Details Recorded Time 11/28/19 25 Removal Foreign Body; Ear completed Cynthia Gallegos [facility] 11/27/2024 14:59:00 08/23/20 24 Cerumen removal - Instruments, Unilateral completed Godfrey Strauss [facility] 08/23/2024 15:05:26 06/28/20 23 Tympanostomy w/Tube, local completed Chey Quinoneson [facility] 06/28/2023 15:28:00 02/18/20 23 Cerumen removal - Instruments, Unilateral completed WALDEMAR POOLE III, MD [address] [place] [address], [phone], [facility] 02/17/2023 16:37:22 06/28/20 22 Tympanostomy w/Tube, local completed WALDEMAR POOLE III, MD [address] [place] [address], [phone], [facility] 06/28/2022 15:07:16 06/28/20 22 myringotomy and insertion of tympanic ventilation tube completed Priscilla Simpson [facility] 06/28/2022 12:00:55 10/13/19 22 Tympanogram completed ELIZABETH HARDIN, [facility] [address] [place] [address], [phone] [place] [address] 10/13/2021 16:19:27 10/13/19 22 Audiogram completed ELIZABETH HARDIN CCC-A [address] [place] [address], [phone] [place] [address] 10/13/2021 16:19:26 cervical biopsy completed Vidal Arroyo [facility] 10/13/2021 15:32:41 lumbar spinal fusion completed Vidal Arroyo [facility] 10/13/2021 15:33:17 hysterectomy completed Vidal Arroyo [facility] 10/13/2021 15:33:28 manipulation of displaced nasal septum completed Vidal Arroyo [facility] 10/13/2021 15:33:50 total shoulder replacement completed Vidal Arroyo [facility] 10/13/2021 15:34:10 Orthopedic Surgery completed Mary Margaret [facility] 02/17/2023 16:03:41 partial glossectomy completed Priscilla Simpson [facility] 02/17/2023 16:26:20 Imaging Results None recorded. Procedure Notes None recorded. Medical Equipment None Reported. Allergies Allergen ID Allergen Name Allergen Category Reaction Reaction Severity Criticality Documentation Date Start Date Code Code System Note Provider Name and Address Organization Details Recorded Time 047506 amoxicill in medicatio n Not available Not available Not available 10/13/2021 723 RxNorm Vidal Arroyo [facility] 15:27:57 669784 Substance with morphinan structure and opioid receptor agonist mechanism of action (substanc e) medicatio n Not available Not available Not available 10/13/2021 21460 9000 SNOMED Vidal Arroyo [facility] 15:29:59 Medications Name Sig Start Date Stop Date Status Note LastModified by Organization Details LastModified Time celecoxib 200 mg capsule TAKE 1 CAPSULE BY MOUTH ONCE DAILY. 06/28 completed Not Available Not Available Not Available hydrocortis one 0.5 % topical cream 02/01 completed Not Available Not Available Not Available prednisone 10 mg tablet TAKE 2 TABLETS BY MOUTH ONCE A DAY 20 DAY(S) 11/27 completed Not Available Not Available Not Available doxycycline hyclate 100 mg capsule TAKE 1 CAPSULE BY MOUTH TWICE A DAY FOR 5 DAYS 11/27 completed Not Available Not Available Not Available tizanidine 2 mg tablet TAKE 1 TABLET BY MOUTH AT BEDTIME NIGHTLY FOR NECK PAIN, SPASTICIT Y active Not Available Not Available No t Available oxybutynin chloride ER 10 mg tablet,exte nded release 24 hr TAKE 1 TABLET BY MOUTH EVERY DAY active Not Available Not Available No t Available azithromyci n 250 mg tablet TAKE 2 TABLETS BY MOUTH TODAY, THEN TAKE 1 TABLET DAILY FOR 4 DAYS DIRECTED active Not Available Not Available No t Available fluconazole 150 mg tablet TAKE 1 TABLET BY MOUTH ONCE DAILY FOR 1 DAY active Not Available Not Available No t Available hydrocodone 5 mg-acetamin ophen 325 mg tablet active Not Available Not Available No t Available Claritin 10 mg tablet Take 1 tablet every day by oral route. active Not Available Not Available No t Available meloxicam 15 mg tablet TAKE 1 TABLET BY MOUTH EVERY DAY active Not Available Not Available No t Available phentermine 37.5 mg tablet TAKE 1 TABLET (37.5 MG) BY ORAL ROUTE ONCE DAILY ONE OR TWO HOURS AFTER BREAKFAST active Not Available Not Available No t Available sulfamethox azole 800 mg-trimetho prim 160 mg tablet TAKE 1 TABLET BY MOUTH TWICE A DAY FOR 10 DAYS 11/27 completed Not Available Not Available Not Available triamcinolo ne acetonide 0.1 % topical cream APPLY EXTERNALL Y THREE TIMES A DAY DIRECTED 02/01 completed Not Available Not Available Not Available meloxicam 7.5 mg tablet Take 1 tablet every day by oral route. 02/17 completed Not Available Not Available Not Available ofloxacin 0.3 % ear drops PLACE 10 DROPS INTO THE AFFECTED EAR(S) ONCE DAILY FOR 7 DAYS. 06/28 completed Not Available Not Available Not Available famotidine 20 mg tablet active Not Available Not Available Not Available methocarbam ol 750 mg tablet TAKE 1 TABLET BY MOUTH TWICE A DAY NEEDED active Not Available Not Available No t Available amoxicillin 250 mg/5 mL oral suspension TAKE 5 ML EVERY DAY BY ORAL ROUTE DIRECTED FOR 6 DAYS 11/27 completed Not Available Not Available Not Available doxycycline monohydrate 100 mg capsule TAKE ONE CAPSULE BY MOUTH TWICE DAILYF OR 10 DAYS 06/28 completed Not Available Not Available Not Available dexamethaso ne 2 mg tablet TAKE 1 TABLET BY MOUTH EVERY 12 HOURS FOR 5 DAYS 11/27 completed Not Available Not Available Not Available [...] TABLET BY MOUTH EVERY 6 HOURS NEEDED 02/01 completed Not Available Not Available Not Available mupirocin 2 % topical ointment APPLY A SMALL AMOUNT TO THE AFFECTED AREA BY TOPICAL ROUTE 3 TIMES PER DAY PRN active Not Available Not Available No t Available levofloxaci n 500 mg tablet TAKE 1 TABLET BY MOUTH EVERY DAY FOR 7 DAYS active Not Available Not Available No t Available estradiol 0.01% (0.1 mg/gram) vaginal cream DO NOT USE APPLICATO R. BLUEBERRY SIZE AMOUNT (0.5G) WITH FINGERTIP APPLICATI ON NIGHTLY. active Not Available Not Available No t Available levofloxaci n 750 mg tablet TAKE 1 TABLET BY MOUTH EVERY DAY FOR 5 DAYS active Not Available Not Available No t Available methylpredn isolone 4 mg tablets in a dose pack TAKE 6 TABLETS ON DAY 1 DIRECTED ON PACKAGE AND DECREASE BY 1 TAB EACH DAY FOR A TOTAL OF 6 DAYS 11/27 completed Not Available Not Available Not Available albuterol sulfate HFA 90 mcg/actuati on aerosol inhaler INHALE 2 PUFFS BY MOUTH 4 TIMES A DAY NEEDED active Not Available Not Available No t Available cefdinir 300 mg capsule TAKE 1 CAPSULE BY MOUTH TWICE DAILY. 06/28 completed Not Available Not Available Not Available metformin ER 500 mg tablet,exte nded release 24 hr TAKE 1 TABLET BY MOUTH EVERY DAY WITH EVENING MEAL FOR 90 DAYS active Not Available Not Available No t Available diazepam 5 mg tablet active Not Available Not Available No t Available tobramycin 0.3 %-dexametha sone 0.1 % eye drops,suspe nsion PLACE 4 DROPS INTO THE LEFT EAR TWICE DAILY FOR 10 DAYS, THEN NEEDED. 11/27 completed Not Available Not Available Not Available azithromyci n 500 mg tablet TAKE 1 TABLET BY MOUTH EVERY DAY FOR 3 DAYS 11/27 completed Not Available Not Available Not Available ciprofloxac in 0.3 %-dexametha sone 0.1 % ear drops,suspe nsion PLACE 4 DROPS INTO THE AFFECTED EAR(S) TWICE DAILY FOR 7 DAYS. 06/28 completed Not Available Not Available Not Available duloxetine 60 mg capsule,del ayed release TAKE 1 CAPSULE BY MOUTH EVERY DAY active Not Available Not Available No t Available Cymbalta 30 mg capsule,del ayed release Take 1 capsule every day by oral route. 02/17 completed Not Available Not Available Not Available pregabalin 50 mg capsule TAKE 1 CAPSULE BY MOUTH 3 TIMES DAILY . 02/01 completed Not Available Not Available Not Available pregabalin 75 mg capsule TAKE 1 CAPSULE BY MOUTH THREE TIMES A DAY FOR 30 DAYS active Not Available Not Available No t Available pregabalin 150 mg capsule TAKE 1 CAPSULE BY MOUTH TWICE DAILY. 02/01 completed Not Available Not Available Not Available albuterol sulfate active Not Available Not Available Not Available hydrochloro thiazide 12.5 mg tablet TAKE 1 TABLET BY MOUTH EVERY DAY IN THE MORNING NEEDED 30 DAY(S) active Not Available Not Available No t Available armodafinil 150 mg tablet TAKE 1 TABLET BY MOUTH EVERY DAY FOR HYPERSOMN IA active Not Available Not Available No t Available Xarelto 10 mg tablet TAKE 1 TABLET BY MOUTH EVERY DAY WITH FOOD FOR 90 DAYS 11/27 completed Not Available Not Available Not Available Xarelto 15 mg tablet TAKE 1 TABLET WITH FOOD ORALLY TWICE A DAY active Not Available Not Available No t Available Xarelto 20 mg tablet TAKE 1 TABLET BY MOUTH EVERY DAY WITH FOOD FOR 30 DAYS 11/27 completed Not Available Not Available Not Available Plenvu 140 gram-9 gram-5.2 gram powder packs TAKE DIRECTED FOR COLONOSCO PY 11/27 completed Not Available Not Available Not Available Breztri Aerosphere 160 mcg-9mcg-4. 8mcg/actuat ion HFA aerosol inhaler active Not Available Not Available Not Available Wegovy 2.4 mg/0.75 mL subcutaneou s pen injector INJECT 2.4 MG UNDER THE SKIN ONCE WEEKLY 02/01 completed Not Available Not Available Not Available Flowflex COVID-19 Antigen Home Test kit FOLLOW INSTRUCTI ONS INCLUDED WITH THE PACKAGE. active Not Available Not Available No t Available Vitals Date Recorded Body height Body mass index (BMI) Body weight Body temperature Heart rate Systolic blood pressure Diastolic blood pressure Provider Name and Address Organization Details Last Updated DateTime 5 157.48 cm 46 kg/m2 141364. 48 g 98.2 [degF] 80 /min 123 mm[Hg] 66 mm[Hg] Cinthya Clemens [facility] 5 14:10:01 Date Recorded Body height Body mass index (BMI) Body weight Body temperature Heart rate Systolic blood pressure Diastolic blood pressure Provider Name and Address Organization Details Last Updated DateTime 4 157.48 cm 45.2 kg/m2 648635. 42 g 97.5 [degF] 70 /min 108 mm[Hg] 74 mm[Hg] Elisabeth Noel [facility] 4 16:05:35 Date Recorded Body height Body temperature Body mass index (BMI) Body weight Heart rate Systolic blood pressure Diastolic blood pressure Provider Name and Address Organization Details Last Updated DateTime 4 157.48 cm 97.7 [degF] 45.3 kg/m2 548916. 12 g 68 /min 131 mm[Hg] 75 mm[Hg] Poly Covarrubias [facility] 4 14:40:30 Date Recorded Body height Body mass index (BMI) Body weight Body temperature Heart rate Systolic blood pressure Diastolic blood pressure Provider Name and Address Organization Details Last Updated DateTime 3 157.48 cm 39 kg/m2 64837.9 7 g 97.2 [degF] 64 /min 124 mm[Hg] 68 mm[Hg] Heidi Almonte [facility] 3 15:08:07 Date Recorded Body height Body mass index (BMI) Body weight Body temperature Heart rate Systolic blood pressure Diastolic blood pressure Provider Name and Address Organization Details Last Updated DateTime 4 157.48 cm 46.5 kg/m2 965365. 46 g 97.3 [degF] 89 /min 130 mm[Hg] 78 mm[Hg] Priya Sun [facility] 4 14:30:07 Social History None recorded. Functional Status Question Answer Note LastModified by Organization D etails LastModified Time What is your level of alcohol consumption? None [email or web address] Information not available 10/13/2021 Mental Status None recorded. Family History Relationship Description Onset Age of this Age Resolved Age Notes LastModified by Organization Details LastModified Time Mother Disorder of thyroid gland [email or web address] Not available 10/13 15:34:45 Brother Asthma [email or web address] Not availabl e 10/13/2021 15:34:56 Medical History Condition Response Kidney Stones N Hyperthyroidism N Heart Arrhythmia N Emphysema N Esophagus/swallowing troubles Y Glaucoma N Lung Disease N Depression N Hypothyroidism Y Anesthesia Complications N Anxiety Disorder N Arthritis Y Hearing Loss N Acid Reflux (GERD) N Cancer Y Stroke N Hoarseness N Alcohol Overuse/Alcohol Abuse N High Cholesterol N Liver Disease N Snoring problems Y Headaches N Kidney Disease N Allergies/Hayfever Y Heart Problems N Mental handicap N Ear or Hearing Problems Y Gallbladder Disease N Migraines N Thyroid Problems Y Goiter Y Anemia N Immune System Disorder Y Chest Pain N Stomach trouble N Heart Attack ([place]) N Ulcers N Diabetes N Rheumatic Fever N Bleeding Disorder N Tuberculosis N AIDS/HIV N Hyperlipidemia N Asthma Y Epilepsy/Seizures N Sleep Disorder Y Hepatitis N Heart Disease N Hypertension N Gynecological HistoryNo gynecological history recorded. Obstetrics History GPAL:G 0 P 0 0 0 0 Past Encounters Encounter ID Performer Location Encounter Start Date Encounter Closed Date Diagnosis/Indication Diagnosis SNOMED-CT Code Diagnosis ICD10 Code Diagnosis Note [id number] MD STEPHANY LLAMAS III [facility] [address] [place] [address] 10/13/2021 15:18:02 10/21/2021 15:07:50 Obstructive sleep apnea of adult 4557355936 103 G47.33 History of malignant neoplasm of tongue 080452334 Z85.810 No sign of recurrence Dysfunctio n of bilateral eustachian tubes 1621325586 376546 H69.93 Hearing examination 3981 77659 Z01.10 Allergic rhinitis 010347 04 J30.9 Chronic re current sinusitis 586066879 J32.9 [id number] FELIPE PEACE, ELIZABETH, CCC-A DC [facility] [address] [place] [address] 10/13/2021 16:19:07 10/13/2021 16:20:05 Abnormal auditory perception 60599438 H93.293 [id number] MD STEPHANY LLAMAS III ENT [facility] [address] [address] 06/07/2022 15:17:51 06/07/2022 16:22:06 Dysfunction of bilateral eustachian tubes 4962283340 535449 H69.93 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 9045193114 698253 H65.93 Allergic rhinitis 447075 04 J30.9 History of malignant neoplasm of tongue 624851547 Z85.810 No sign of recurrence History of cervical spine fusion 5045001881 101 Z98.1 [id number] MD STEPHANY LLAMAS III [address]NT [address] [place] [address] 06/28/2022 10:55:57 06/28/2022 15:27:39 Dysfunction of bilateral eustachian tubes 2397814370 794495 H69.93 -Bilateral Paparella tube placement performed in office today ( 2) Allergic rhinitis 613348 04 J30.9 History of malignant neoplasm of tongue 769706127 Z85.810 -No sign of recurrence ( 2)-No sign of recurrence ( 2) History of cervical spine fusion 0864750802 101 Z98.1 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 9585970875 655751 H65.93 Bilateral Paparella tube placement in office today ( 2) [id number] MD STEPHANY LLAMAS III E[facility] [address] [place] [address] 08/31/2022 10:27:23 08/31/2022 13:32:54 Dysfunction of bilateral eustachian tubes 1390966896 770069 H69.93 -Bilateral Paparella tube placement performed in office today ( 2) History of malignant neoplasm of tongue 786288746 Z85.810 -No sign of recurrence [id number] MD STEPHANY LLAMAS III ENT [address] [place] [address] 02/17/2023 15:39:57 02/20/2023 07:46:20 Dysfunction of bilateral eustachian tubes 2610206049 345907 H69.93 -Bilateral Paparella tube placement performed in office today ( 2) History of malignant neoplasm of tongue 082402360 Z85.810 -No sign of recurrence Impacted c erumen in right ear 6449091034 761362 H61.21 [id number] MD STEPHANY LLAMAS III E[facility] [address] [place] [address] 06/14/2023 15:17:19 08/24/2023 04:43:32 Dysfunction of bilateral eustachian tubes 4818774195 133219 H69.93 History of malignant neoplasm of tongue 771281962 Z85.810 -No sign of recurrence [id number] MD STEPHANY LLAMAS III E[address] [facility] [address] [place] [address] 06/28/2023 14:55:12 07/03/2023 17:02:00 Dysfunction of bilateral eustachian tubes 8999347440 742413 H69.93 06/28/22- In-office bilateral Tympanosto my tube placement (Paparella ) 06/28/23- In-Office left tympanosto my tube placement (Duravent) Ear pressu re sensation 005308194 H93.8X2 - left Cough 51655451 R05.9 Clearing t hroat - hawking 432977889 R05.9 History of malignant neoplasm of tongue 810921700 Z85.810 -No sign of recurrence Dysphagia 04106228 R13.1 0 [id number] MD STEPHANY LLAMAS III ENT [address] [place] [address] 02/02/2024 15:37:19 02/02/2024 16:36:36 Dysfunction of bilateral eustachian tubes 7419918683 869197 H69.93 06/28/22- In-office bilateral Tympanosto my tube placement (Paparella )06/28/23- In-Office left tympanosto my tube placement (Duravent) 02/02/24- left ear tube present with granulatio ns. Begin Tobradex Ear pressu re sensation 747483803 H93.8X2 - left Cough 18377132 R05.9 Clearing t hroat - hawking 835808766 R05.9 Dysphagia 41495913 R13.1 0 History of malignant neoplasm of tongue 878747236 Z85.810 -No sign of recurrence Pulmonary embolism 25600 003 I26.99 Granulatio ns on tympanic membrane 027450670 H73.899 [id number] MD STEPHANY LLAMAS III RD [address] [place] [address] 02/16/2024 14:30:22 02/16/2024 16:30:21 Dysfunction of bilateral eustachian tubes 9077396909 802778 H69.93 06/28/22- In-office bilateral Tympanosto my tube placement (Paparella )06/28/23- In-Office left tympanosto my tube placement (Duravent) 02/02/24- left ear tube present with granulatio ns. Begin Tobradex- Left ear tube healed without granulatio ns Granulatio ns on tympanic membrane 360924221 H73.899 Pulmonary embolism 41017 003 I26.99 Ear pressu re sensation 987655386 H93.8X2 - left Cough 72458789 R05.9 Clearing t hroat - hawking 413126336 R05.9 Dysphagia 98571187 R13.1 0 History of malignant neoplasm of tongue 670883456 Z85.810 -No sign of recurrence 02/16/24- tongue deviated to the left due to treatment of [id number] MD STEPHANY LLAMAS III ENT [address] [place] [address] 08/23/2024 14:18:36 08/23/2024 16:02:59 Dysfunction of bilateral eustachian tubes 0454821263 176604 H69.93 06/28/22- In-office bilateral Tympanosto my tube placement (Paparella )06/28/23- In-Office left tympanosto my tube placement (Duravent) 02/02/24- left ear tube present with granulatio ns. Begin Tobradex- Left ear tube healed without granulatio ns110/24/23 - Left ear tube occluded with cerumen Pulmonary embolism 95437 003 I26.99 - hx of Dysphagia 59549353 R13.1 0 - hx of History of malignant neoplasm of tongue 792025176 Z85.810 -No sign of recurrence 02/16/24- tongue deviated to the left due to treatment of Nasal vestibulitis 11564 000 J34.89 Acute sinusitis 07523025 J01.90 [id number] MD STEPHANY LLAMAS III ENT [address] [place] [address] 11/27/2024 13:55:02 12/01/2024 07:35:20 Dysfunction of bilateral eustachian tubes 4105699062 830236 H69.93 06/28/22- In-office bilateral Tympanosto my tube placement (Paparella )06/28/23- In-Office left tympanosto my tube placement (Duravent) x202/02/24- left ear tube present with granulatio ns. Begin Tobradex- Left ear tube healed without granulatio ns110/24/23 - Left ear tube occluded with cerumen3/2 02/26- left ear tube removal performed in office Pulmonary embolism 67062 003 I26.99 - hx of Dysphagia 18600198 R13.1 0 - hx of History of malignant neoplasm of tongue 195426767 Z85.810 -No sign of recurrence 02/16/24- tongue deviated to the left due to treatment on cancer treatment Nasal vestibulitis 78263 000 J34.89 Granulatio ns on tympanic membrane 994800691 H73.899 Health Concerns Section Related Observation LastModified by Organization Detai ls LastModified Time None Recorded Concern Status LastModified by Organization Details LastModified Time None Recorded Advance Directives Directive None Recorded Payers Insurance Date Sequence Insurance Name Policy Number Policy Adamson Covered Member ID Adamson Member ID Guarantor Name 11/26/2024 1 [employer] [id number] Eleonora Hernandez [id number] Eleonora Hernandez 02/02/2024 1 [place] [id number] Eleonora Hernandez [id number] Eleonora Hernandez Notes Date Note Type Note Provider Name and Address Organization Details Recorded Time 06/28/2023 text/html Eleonora returns today for left tympanostomy tube placement (Duravent). She had In-Office bilateral tympanostomy tube placement (Paparella) back in June 2022. She has no issues with her right ear today. Since her left tube extruded, she has remained symptomatic with ear pain/pressure. Separately Eleonora complains of dysphagia, a cough and throat clearing. She does not complain of acid reflux symptoms. She has been evaluated by Dr. Jeff Cooper years ago. WALDEMAR POOLE III, MD [address] [place] [address], [phone], [facility] 06/28/2023 15:57:31 02/02/2024 text/html Eleonora presents in office today to follow up on left ear tube, performed in office 06/28/23. 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 She has been having left otorrhea. Her ear was cultured and she was placed on ear drops. WALDEMAR POOLE III, MD [address] [place] [address], [phone], [facility] 02/02/2024 17:10:36 02/16/2024 text/html Eleonora presents in office today to follow up on left ear tube, performed on 06/28/23. The pt was last noted to have left granulation tissue. Ear drops did help her granulations and she denies recent otorrhea. WALDEMAR POOLE III, MD [address] [place] [address], [phone], [facility] 02/16/2024 15:22:48 08/23/2024 text/html Eleonora Hernandez (54F ) visits our office for a follow up evaluation of left ear tube, performed on 06/28/23.Eleonora reports that she is current dealing with a sinus infection. She has been dealing with rhinitis and congestion.She reports a sore in her nasal cavity that she has concerns about.Eleonora reports a prior history of Cdif. with cephalosporin use WALDEMAR POOLE III, MD [address] [place] [address], [phone], [facility] 08/23/2024 16:31:06 11/27/2024 text/html Eleonora presents in office today to follow up on left ear fullness sensation. 08/2024 she was last noted to have an occluded left ear tube (performed 06/28/23.) She did present to [employer] at PCP office who was not able to view the ear tube. She denies otalgia or soreness. Her right ear seems to be normal curently. WALDEMAR POOLE III, MD [address] [place] [address] [place], [phone], [facility] 11/27/2024 15:25:46 OBGyn Episode No OBEpisode recorded.
--- OUTSIDE RECORDS SUMMARY | 2025-02-26 11:37 | XMS_ITS | Patient Health Record ---
Author Organization [facility] Address [address] [facility] [address] [place] [address] [place] [id number] Care Team Providers Care Form Setter/Driver Name Role Phone Sanjiv Everett Primary Care Provider Leyla Deutsch Unavailable [phone] [place] Unavailable [phone] Brandee Ceron Unavailable [phone] Allergies Allergen (clinical drug ingredient) Drug/Non Drug [...] - 38 plat 339 100 - 400 Urinalysis - Inhouse Reviewed date:01/28/2025 02:38:01 PM [...] Normal Performing Lab: Notes/Report: Test performed by [facility] [address] [place], [place] [address] [place] , [address], [place] [address] Joe Esteban MD, Bilingual Nanny CLIA: [id number] Sodium 141 135-145 mmol/L Potassium 5.1 3.5-5.3 mmol/L Chloride 103 97-108 mmol/L CO2 26 22-32 mmol/L Glucose 83 65-99 mg/dL BUN 16 6-20 mg/dL Creatinine 0.72 0.50-1.00 mg/dL Calcium 9.4 8.6-10.4 mg/dL eGFR by Creatinine 98 >59 mL/min/1.73m2 P-Vitamin D 25-Hydroxy Reviewed date:01/30/2025 08:38:44 AM Interpretation:39.8 Performing Lab: Notes/Report: Test performed by [facility] [address] [place], [place] [address] [place] , [address], [place] [id number] Joe Esteban MD, Bilingual Nanny CLIA: [id number] Vitamin D 25-Hydroxy 39.8 30.0-100.0 ng/mL Interpretation of Vitamin D 25 [place]: < 20 ng/mL - Deficiency 20 - 29 ng/mL - Insufficiency 30 - 100 ng/mL - Sufficiency > 100 ng/mL - Super-therapeutic- toxicity may occur above this level. Clinical correlation required. Urinalysis - Inhouse (Not ye t reviewed by provider) Interpretation: Performing Lab: Notes/Report: Color/Clarity yellow/clear Leuk Neg Nitrite Neg Urobili 3.2 Protein Neg pH 5.5 Blood 1+ Sp. Gr. 1.101 Ketone Neg Bili Neg Gluc Neg TEN-UTI panel Reviewed date:04/15/2024 10:31:58 AM Interpretation:Negative Performing Lab: Notes/Report: Negative CBC Venipuncture (in house) Reviewed date:12/31/2024 08:11:00 AM Interpretation: Performing Lab: Notes/Report: wbc 8.0 3.5 - 10 lymph 29.5% 15 - 50 mid 8.0% 2 - 15 gran 62.5% 35 - 80 rbc 4.60 3.5 - 5.5 hgb 14.2 11.5 - 16.5 hct 42.3 35 - 55 mcv 92.1 75 - 100 mch 30.9 25 - 35 mchc 33.5 31 - 38 platlet 389 100 - 400 P-Comprehensive Metabolic Pa sandy (CMP) Reviewed date:01/02/2025 09:11:33 AM Interpretation:CO2 21, Glu 117 Performing Lab: Notes/Report: Test performed by [facility] , [address], [place] [address] Jeo Esteban MD, Bilingual Nanny CLIA: [id number] Sodium 142 135-145 mmol/L Potassium 4.8 3.5-5.3 mmol/L Chloride 104 97-108 mmol/L CO2 21 22-32 mmol/L Glucose 117 65-99 mg/dL BUN 20 6-20 mg/dL Creatinine 0.73 0.50-1.00 mg/dL Calcium 9.4 8.6-10.4 mg/dL eGFR by Creatinine 97 >59 mL/min/1.73m2 Protein 6.5 6.0-8.3 g/dL Albumin 4.3 3.5-5.3 g/dL Alkaline Phosphatase 103 35-121 IU/L ALT (SGPT) 39 <5-47 IU/L AST (SGOT) 32 <5-40 IU/L Bilirubin, Total 0.2 <0.2-1.2 mg/dL A/G Ratio 2.0 1.1-2.5 P-TSH reflex to FT4 Reviewed date:01/02/2025 09:11:33 AM Interpretation:Normal Performing Lab: Notes/Report: Test performed by [facility] [address] [place] [address] , [address], [place] [address] Joe Esteban MD, Bilingual Nanny CLIA: [id number] TSH reflex to FT4 1.35 0.43-5.25 mU/L CBC Fingerstick (in house) Reviewed date:07/02/2024 01:23:32 PM Interpretation: Performing Lab: Notes/Report: wbc 7.7 3.5 - 10 lym 27.8% 15 - 50 mid 6.6% 2 - 15 gran 65.6% 35 - 80 rbc 4.62 3.5 - 5.5 hgb 14.4 11.5 - 16.5 hct 43.8 35 - 55 mcv 94.7 75 - 100 mch 31.1 25 - 35 mchc 32.8 31 - 38 plat 235 100 - 400 X ray : Rib series, left Reviewed date:10/12/2024 10:27:48 AM Interpretation:Negative Performing Lab: Notes/Report: Negative X ray : Chest Reviewed date:10/12/2024 10:27:47 AM Interpretation:Negative Performing Lab: Notes/Report: Negative CBC Fingerstick (in house) Reviewed date:10/10/2024 09:15:19 AM Interpretation: Performing Lab: Notes/Report: wbc 13.3 3.5 - 10 lym 23.2% 15 - 50 mid 6.0% 2 - 15 gran 70.8% 35 - 80 rbc 5.04 3.5 - 5.5 hgb 15.1 11.5 - 16.5 hct 45.8 35 - 55 mcv 90.9 75 - 100 mch 30.0 25 - 35 mchc 32.9 31 - 38 plat 240 100 - 400 Urinalysis - Inhouse Reviewed date:04/12/2024 09:35:46 AM Interpretation: Performing Lab: Notes/Report: Color/Clarity yellow/clear Leuk neg Nitrite neg Urobili 3.2 Protein neg pH 5.5 Blood trace-lysed Sp. Gr. 1.020 Ketone neg Bili neg Gluc neg CBC Fingerstick (in house) Reviewed date:05/08/2024 03:16:07 PM Interpretation: Performing Lab: Notes/Report: wbc 6.6 3.5 - 10 lym 24.9% 15 - 50 mid 6.9% 2 - 15 gran 68.2% 35 - 80 rbc 4.57 3.5 - 5.5 hgb 14.2 11.5 - 16.5 hct 42.8 35 - 55 mcv 93.5 75 - 100 mch 31.1 25 - 35 mchc 33.2 31 - 38 plat 323 100 - 400 CBC Fingerstick (in house) Reviewed date:09/23/2024 12:35:38 PM Interpretation: Performing Lab: Notes/Report: wbc 6.6 3.5 - 10 lym 16.9 15 - 50 mid 4.0 2 - 15 gran 79.1 35 - 80 rbc 4.65 3.5 - 5.5 hgb 14.2 11.5 - 16.5 hct 41.8 35 - 55 mcv 89.9 75 - 100 mch 30.6 25 - 35 mchc 34.0 31 - 38 plat 271 100 - 400 X ray : Spine, thoracic spin e Reviewed date:05/27/2024 10:39:05 AM Interpretation:nothing acute, fusion, osteopenia Performing Lab: Notes/Report: nothing acute, fusion, osteopenia Glycohemoglobin A1c (in hous e) Reviewed date:03/11/2024 09:17:52 AM Interpretation: Performing Lab: Notes/Report: glycohemoglobin 5.5% 5 - 6.5 % CBC Fingerstick (in house) Reviewed date:10/02/2024 12:19:57 PM Interpretation: Performing Lab: Notes/Report: wbc 14.5 3.5 - 10 lym 22.2% 15 - 50 mid 6.5% 2 - 15 gran 71.3% 35 - 80 rbc 5.07 3.5 - 5.5 hgb 15.4 11.5 - 16.5 hct 45.6 35 - 55 mcv 89.9 75 - 100 mch 30.4 25 - 35 mchc 33.8 31 - 38 plat 271 100 - 400 Medications Medication SIG (Take, Route, Frequency, Duration) Notes Start Date End Date Status Flonase Sensimist 27.5 MCG/SPRAY USE 1 SPRAY [...] FOOD FOR 90 DAYS for 90 Active Methocarbamol 750 MG 1 tablet Orally horace ry 12 hrs as needed for 30 days 12/30/2024 Active Mounjaro 2.5 MG/0.5ML as directed Subcutaneous Active Furosemide 20 MG TAKE 1 TABLET BY SUMIT TH EVERY DAY FOR 30 DAYS for 30 Active Synthroid 50 MCG 1 tab(s) orally once a day, except Sun Active Pregabalin 75 MG 1 capsule Orally Thr ee times a day for 30 day(s) 02/12/2025 Active Vitamin D3 125 MCG (5000 UT) 1 tab(s) orally once a day 11/30/2021 Active DULoxetine HCl 60 MG TAKE 1 CAPSULE BY M OUTH EVERY DAY FOR 90 DAYS for 90 Active Xyzal Allergy 24HR 5 MG 1 tablet in the evening Orally Once a day Active Ventolin HFA 108 (90 Base) MCG/ACT 2 puff(s) inhaled 4 times a day as needed 02/25/2022 Active Immunizations Vaccine Route Administration Date Status Comme nts COVID 19 Pfizer Unknown 09/24/2020 Administered COVID 19 Pfizer Unknown 10/21/2020 Administered COVID 19 Pfizer Unknown 10/22/2020 Administered DT, 7 YEARS OR OLDER Unknown 04/19/2001 Administered Fluzone PF Quad (6-35 months) Unknown 04/22/2017 Administered Fluzone PF Quad (6-35 months) Unknown 10/10/2019 Administered Fluzone Quad (6months&older) IM Intramuscular 07/02/2024 Administered PNEUMOVAX 23 VACCINE IM Intramuscular 04/02/2024 Administe red Shingrix IM Intramuscular 04/12/2024 Administered Shingrix IM Intramuscular 07/02/2024 Administered Tetanus Tdap-Adacel (over 7yrs) IM Intramuscular 05/08/2020 Administered tuberculin (ppd) SC Subcutaneous 03/28/2017 Administered Problems Problem Type SNOMED Code ICD Code Onset Dates Problem Status W/U Status Risk Notes Problem 418754773 History of pulmonary embolism (Z86.711) Active confirmed Problem 893328715 Hypothyroidism (acquired) (E03.9) Active confirmed Problem 27381123 Vitamin D deficiency (E55.9) Active confirmed Problem Otitis externa (0501834) Otitis externa (H60.90) Active confirmed Problem Constipation (36048408) Constipation (K59.00) Active confirmed Problem Venous insufficiency of leg (disorder) (761032980) Venous insufficiency (I87.2) Active confirmed Problem 251991996673935 Pain in thoracic spine (M54.6) Active confirmed Problem 989782183 Depression with anxiety (F41.8) Active confirmed Problem 433553033 Localized edema (R60.0) Active confirmed Problem 05686477 Other chronic pain (G89.29) Active confirmed Problem 264983663 Irritable bowel syndrome with diarrhea (K58.0) Active confirmed Problem 89064431 Degenerative dis c disease, cervical (M50.30) Active confirmed Problem 91419755 Other chronic pain (G89.29) Active confirmed Problem 90224100 Neck pain (M54.2) Active confirmed Problem 764797206 BMI 38.0-38.9,adult (Z68.38) Active confirmed Problem 33136722 Dysphagia, unspecified type (R13.10) Active confirmed Problem 002262113 Large breasts (N62) Active confirmed Problem 24684614 Carpal tunnel syndrome of left wrist (G56.02) Active confirmed Problem 405394628 BMI 37.0-37.9, adult (Z68.37) Active confirmed Problem 36759746 Seasonal allergi c rhinitis due to pollen (J30.1) Active confirmed Problem 30616986 Paresthesia of left upper extremity (R20.2) Active confirmed Problem 995137887 Cardiac dysrhythmia, unspecified (I49.9) Active confirmed Problem 253782084 Obesity (BMI 35.0-39.9 without comorbidity) (E66.9) Active confirmed Problem Fibromyalgia (104285142) Fibromyalgia affecting multiple sites (M79.7) Active confirmed Problem 816292535657892 Primary osteoarthritis of left shoulder (M19.012) Active confirmed Problem 47749763 Allergic rhinitis, unspecified chronicity, unspecified seasonality, unspecified trigger (J30.9) Active confirmed Problem 14715672 Ventricular ectopy (I49.3) Active confirmed Problem 2149991979301586 Arthritis of le ft knee (M17.12) Active confirmed Problem 87687947 Fibrocystic breast disease (FCBD), unspecified laterality (N60.19) Active confirmed Problem 69325468 Esophageal dysphagia (R13.10) Active confirmed Problem 18375265 Thyroid lesion (E07.89) Active confirmed Problem 310539969 Acute asthmatic bronchitis (J45.909) Active confirmed Problem 85389971 Pulmonary embolism without acute cor pulmonale, unspecified chronicity, unspecified pulmonary embolism type (I26.99) Active confirmed Problem 70492613213881541 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) Active confirmed Problem 553369981 Hx of tongue cancer (Z85.810) Active confirmed Vital Signs Heart Rate 65 /min 02/26/2025 Blood pressure diastolic 60 mm Hg 02/26/2025 Height 62 in 02/26/2025 Blood pressure systolic 100 mm Hg 02/26/2025 Weight 264 lbs 02/26/2025 BMI 48.28 kg/m2 02/26/2025 Encounters Encounter Location Date Provider Diagnosis [facility] [address] [facility] [address] [place], [place] [id number] 03/08/2024 Sanjiv [place] Pulmonary embolism without acute cor pulmonale, unspecified chronicity, unspecified pulmonary embolism type I26.99 and Hyperglycemia R73.9 [facility] [address] [place], [place] [id number] 03/19/2024 Sanjiv [place] Pain in left knee M25.562 ; Preop examination Z01.818 ; Arthritis of left knee M17.12 ; Other tear of meniscus of left knee, unspecified meniscus, unspecified whether old or current tear, initial encounter S83.204A and Bilateral pulmonary embolism I26.99 [facility] [address] [place], [place] [id number] 04/02/2024 Sanjiv [place] Encounter for immunization Z23 [facility] [address] [place], [place] [id number] 04/12/2024 Sanjiv [place] Acute vaginitis N76. 0 ; Microscopic hematuria R31.29 and Encounter for immunization Z23 [facility] [address] [place] [id number] 05/08/2024 Brandeetodd Ceron Acute otitis media w ith effusion of right ear H65.191 ; Dizziness R42 and Pain of right middle finger M79.644 [facility] [address] [place], [place] [id number] 05/24/2024 Sanjiv [place] Pain in left knee M25.562 ; Other chronic pain G89.29 ; Acute left ankle pain M25.572 ; Pain in thoracic spine M54.6 ; Polyarthralgia M25.50 and Dysphonia R49.0 [facility] [address] [place], [place] [id number] 06/14/2024 Sanjiv [place] Pain in left knee M25.562 ; Pain in thoracic spine M54.6 ; History of pulmonary embolism Z86.711 and IFG (impaired fasting glucose) R73.01 [facility] [address] [place] [id number] 07/02/2024 Sanjiv [place] Otalgia, left ear H92.02 ; Acute rhinitis J00 and Encounter for vaccination Z23 [facility] [address] [place] [id number] 09/23/2024 Sanjiv [place] Acute URI J06.9 [facility] [address] [place] [id number] 10/02/2024 Sanjiv [place] Bronchitis J40 [facility] [address] [place] [id number] 10/09/2024 Sanjiv [place] Bronchitis J40 ; Left-sided chest wall pain R07.89 and Rash R21 [facility] [address] [facility] [address] [place] [id number] 11/25/2024 [place] Otitis externa H60.9 0 [facility] [address] [facility] [address] [place] [id number] 12/30/2024 Sanjiv [place] Peripheral edema R60 .0 and Neck pain M54.2 [facility] [address] [facility] [address] [place] [id number] 01/23/2025 Brandee Crowdy Swelling R60.9 [facility] [address] [place], [place] [id number] 01/28/2025 Sanjiv [place] Peripheral edema R60 .0 ; Vitamin D deficiency E55.9 ; IFG (impaired fasting glucose) R73.01 and Acute URI J06.9 [facility] [address] [place] [id number] 02/26/2025 Sanjiv [place] Pre-op exam Z01.818 ; Pain in left knee M25.562 ; Arthritis of left knee M17.12 and Peripheral edema R60.0 [facility] [address] [place] [id number] 03/14/2024 Sanjiv [place] [facility] [address] [place] [id number] 05/24/2024 Sanjiv [place] Fibromyalgia affecti ng multiple sites M79.7 [facility] [address] [place] [id number] 05/27/2024 Sanjiv [place] [facility] [address] [place] [id number] 09/02/2024 Sanjiv [place] [facility] [address] [place] [id number] 10/12/2024 Sanjiv [place] Fibromyalgia affecti ng multiple sites M79.7 [facility] [address] [place] [id number] 01/02/2025 Sanjiv [place] [facility] [address] [place] [id number] 01/30/2025 Sanjiv [place] [facility] [address] [place] [id number] 02/12/2025 Sanjiv [place] Fibromyalgia affecti ng multiple sites M79.7 [facility] [address] [place] [id number] 02/21/2025 Leyla Deutsch Assessments Encounter Date Diagnosis (ICD Code) Assessment Notes Treatment Notes Treatment Clinical Notes Section Notes 03/08/2024 Hyperglycemia (ICD-10 - R73.9) 03/08/2024 Pulmonary embolism without acute cor pulmonale, unspecified chronicity, unspecified pulmonary embolism type (ICD-10 - I26.99) 03/19/2024 Preop examination (ICD-10 - Z01.818) Patient is not of acceptable risk for proposed surgery. Plan to await 6 months wilber from recent PE 03/19/2024 Pain in left knee (ICD-10 - M25.562) 04/02/2024 Encounter for immunization (ICD-10 - Z23) 04/12/2024 Acute vaginitis (ICD-10 - N76.0) 04/12/2024 Microscopic hematuria (ICD-10 - R31.29) 05/08/2024 Dizziness (ICD-10 - R42) Dizziness is likely due to ear infection and effusion. 05/08/2024 Acute otitis media with effusion of right ear (ICD-10 - H65.191) 05/24/2024 Other chronic pain (ICD-10 - G89.29) 05/24/2024 Pain in left knee (ICD-10 - M25.562) Off work until follow up, starting 05/29/24 05/24/2024 Fibromyalgia affecting multiple sites (ICD-10 - M79.7) 06/14/2024 Pain in thoracic spine (ICD-10 - M54.6) 06/14/2024 Pain in left knee (ICD-10 - M25.562) 07/02/2024 Otalgia, left ear (ICD-10 - H92.02) symptomatic treatment of pain. Return if worsening of pain or developement of new symptoms 07/02/2024 Acute rhinitis (ICD-10 - J00) 10/09/2024 Bronchitis (ICD-10 - J40) 10/09/2024 Left-sided chest wall pain (ICD-10 - R07.89) 10/12/2024 Fibromyalgia affecting multiple sites (ICD-10 - M79.7) 11/25/2024 Otitis externa (ICD-10 - H60.90) 12/30/2024 Neck pain (ICD-10 - M54.2) 12/30/2024 Peripheral edema (ICD-10 - R60.0) 01/23/2025 Swelling (ICD-10 - R60.9) Will call Dr. Valdovinos's office and see if she can stop the armodafinil. 01/28/2025 Vitamin D deficiency (ICD-10 - E55.9) 01/28/2025 Peripheral edema (ICD-10 - R60.0) 02/12/2025 Fibromyalgia affecting multiple sites (ICD-10 - M79.7) 02/26/2025 Pre-op exam (ICD-10 - Z01.818) 02/26/2025 Pain in left knee (ICD-10 - M25.562) 09/23/2024 Acute URI (ICD-10 - J06.9) 10/02/2024 Bronchitis (ICD-10 - J40) 10/09/2024 Rash (ICD-10 - R21) Patient seems to have a sun burn 01/28/2025 IFG (impaired fasting glucose) (ICD-10 - R73.01) 02/26/2025 Arthritis of left knee (ICD-10 - M17.12) 07/02/2024 Encounter for vaccination (ICD-10 - Z23) 06/14/2024 History of pulmonary embolism (ICD-10 - Z86.711) 05/24/2024 Acute left ankle pain (ICD-10 - M25.572) Likely due to gait change, plan rest and conservative treatment 05/08/2024 Pain of right middle finger (ICD-10 - M79.644) 04/12/2024 Encounter for immunization (ICD-10 - Z23) 03/19/2024 Arthritis of left knee (ICD-10 - M17.12) 03/19/2024 Other tear of meniscus of left knee, unspecified meniscus, unspecified whether old or current tear, initial encounter (ICD-10 - S83.204A) 05/24/2024 Pain in thoracic spine (ICD-10 - M54.6) 06/14/2024 IFG (impaired fasting glucose) (ICD-10 - R73.01) 01/28/2025 Acute URI (ICD-10 - J06.9) 02/26/2025 Peripheral edema (ICD-10 - R60.0) 05/24/2024 Polyarthralgia (ICD-10 - M25.50) 03/19/2024 Bilateral pulmonary embolism (ICD-10 - I26.99) 05/24/2024 Dysphonia (ICD-10 - R49.0) Discussed ENT evaluation if symptoms do not improve 07/02/2024 Other Surgical clearance has already been completed 09/23/2024 Other Plan to decreas e Methocarbamol dose to QHS prn Plan Of Treatment Pending Test Test Name Order Date Urinalysis - Inhouse 02/26/2025 CT Scan : Sinuses, without contrast 01/03 EKG 02/26/2025 CXR 02/26/2025 CBC Venipuncture (in house) 02/26/2025 Glycohemoglobin A1c (in house) Mammogram 10/25/2021 CT Scan : Chest w/ & w/o contrast 2023 CT scan : Neck soft tissue with contrast 01/22/2024 P-Basic Metabolic Panel (BMP) 02/26/2025 P-TSH reflex to FT4 02/26/2025 Next Appt Details Provider Name:Sanjiv Khan ry, 04/28/2025 05:30:00 PM, [address] [facility], [address], [place], [place], [id number], Insurance Providers Payer Name Payer Address Payer Phone Subscriber Number Group Number Insured Name Patient Relationship to Insured Coverage Start Date Coverage End Date JON [employer] [facility] [address] [place] [address] [id number] Eleonora Hernandez Self - patient is the insured Medications Administered Medication Instructions Date of Administration Dosage Notes Dexamethasone 12/19/2011 1.0 mL Dexamethasone 06/02/2023 1 mL Medical (General) History Medical History History ICD Code Tongue Cancer Allergic Rhinitis Hypothyroidism Esophageal Reflux Plantar Fasciitis Bilateral Mucosal Thickening of Maxillar y Sinuses 08/2009 Scheuermann's Kyphosi Repair Back Pain Mammogram 03/2021 Pap 07/2019 COVID 19, Pfizer, Sep-Oct 2020 COVID-19 Illness, 09/21/2021 DEXA 11/2021 Fibromyalgia Pulmonary Embolism, January 2024 Surgical History Surgery Date(Month/Year) LT Ovary Removal 2006 Turbinectomy 2005 Partial Hysterectomy 1996 Tubal Ligation 1993 Tonsillectomy 1974 RT Shoulder 12/09/14 L3-L5 Spinal Fusion 02/22/2016 Tongue Biopsy 10/04/2016 Breast Reduction 01/27/2017 Tongue Carcinoma, Partial Glossectomy an d Neck Node Dissection 2016 Neck Needle Biopsy, [facility], Negative 12/15 Colonoscopy, Negative, Dr. Kaba, recom mended 10yr f/u 03/20/2018 Vein Ablasion 05/03/2019 RT Shoulder Replacment 06/01/2020 Cervical Spine Diskectomies and Fusion C 3, C4, C5, C6 08/19/2021 Right Great Toe Bunion Surgery - Dr. 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
--- OUTSIDE RECORDS SUMMARY | 2025-02-26 11:37 | XMS_ITS | Encounter Summary ---
Author Organization [facility] Address [address] [place] [address] Phone Care Team Providers Care [facility] Specialist Name Role Phone Get NORRIS MD, J Gregory Primary Care Provider + Reason for Referral * - Closed Specialty Diagnoses / Procedures Referred By Contelvira t Referred To Contact Procedures LAB SCAN [facility] [address] [place] [address] Phone: tel: Referral ID Status Reason Start Date Expiration Date Visits Re quested Visits Authorized [id number] Closed 01/25/2012 07/23/2012 1 1 Encounter Details Date Type Department Care Team (Late Contact Info) Description 01/25/2012 SCAN [facility] [address] [place] [address] Social History Tobacco Use Types Packs/Day Years Used Date Smoking Tobacco: Never Smokeless Tobacco: Never Alcohol Use Standard Drinks/Week Comments No 0 (1 standard drink = 0.6 oz pur e alcohol) Comments No Sex and Gender Information Value Date Recorded Sex Assigned at Not on file Legal Sex Female 5:26 PM EDT Gender Identity Not on file Sexual Orientation Not on file documented as of this encounter Plan of Treatment Upcoming Encounters Date Type Department Care Team (Late Contact Info) Description 07/30/2025 12:00 PM EST [facility] [address] [address] Estrella Ann MD [address] [place] [address] documented as of this encounter Procedures Procedure Name Priority Date/Time Associated Diagnosis Comments LAB SCAN Routine 12/01/2011 documented in this encounter Results * LAB SCAN (12/01/2011) us Historical Med LAB BLOOD ORDERABLES Final Resul t documented in this encounter Visit Diagnoses Not on filedocumented in this encounter Care Teams [facility] Specialist Relationship Specialty Start Date End Date Leyla Deutsch MD, MD [facility] [address] [place] [address] PCP - General 04/29/08 documented as of this encounter
--- OUTSIDE RECORDS SUMMARY | 2025-02-26 11:37 | XMS_ITS | Data Portability ---
Author Organization MS - Sae scott MD, Main Office Address [address], [address] [place] [address] Care Team Providers Care Synthetic Filament Spinner Name Role Phone SMITA RHODES Primary Care Provider Assessment No assessment recorded. Plan of Treatment Reminders Order Date Submit Date Provider Last Modified By Organization Details Last Modified Time Details Appointments None recorded. Lab None recorded. Referral None recorded. Procedures lower extremity nerve conduction study (PROC) 2021 022 Sae Rico MD, [address], [place], [address], 11:41:46 Surgeries None recorded. Imaging MRI, lumbar spine, w/wo contrast - Auth # [id number] 08/17/22-08/26 022 [facility], [address], [place], [address], 08:52:45 Medication Orders None recorded. Patient TargetsNo targets recorded. Patient Instructions Encounter Date Encounter Id Patient Instructions Last Modified By Organization Details Last Modified Time 07/05/2018 [id number] Neck Pain: Care Instructions Not available 07/05/2018 14:42:52 carpal tunnel syndrome: care instructions Not available 07/05/2018 14:42:52 carpal tunnel syndrome: exercises Not available 07/05/2018 14:42:52 10/07/2020 [id number] Numbness and Tingling: Care Instructions Not available 10/07/2020 10:36:47 07/19/2022 [id number] lumbar spinal stenosis: care instructions Not available 07/19/2022 12:37:20 Finding has been discussed with the patient in detail. MRI scan of the lumbar spine with and without contrast. EMG/NCV of both legs. I will see her back in follow-up. Not available 07/19/2022 12:37:43 08/22/2022 [id number] Numbness and Tingling: Care Instructions [email or web address] Not available 08/22/2022 13:23:08 08/22/2022 [id number] Learning About Relief for Back Pain Not available 08/22/2022 14:44:48 Reason for Referral None Reported. Results Created Date Observation Date Name Description Value Unit Range Abnormal Flag Note LastModifiedBy Organization Detail LastModifiedTime 07/05/20 18 07/05/2018 elect romyo gram + nerve condu ction study No observ ation record ed. BARCODE Not Available 2017 14:23:55 10/07/19 21 10/07/2020 elect romyo gram + nerve condu ction study No observ ation record ed. BARCODE Not Available 2020 10:14:27 08/22/20 22 08/22/2022 lower extre mity nerve condu ction study (PROC ) No observ ation record ed. BARCODE Sae Rico MD [address] [facility] [address], [place], [address], 08/22/2022 13:32:46 08/23/20 22 08/22/2022 MRI, lumba r spine , w/wo contr ast No observ ation record ed. [facility] [address], [place], [address], 08/23/2022 10:52:15 Result Notes None recorded. Problems No Known Problems Procedures Surgical History Date Name Laterality Status Provider Name and Address Organization Details Recorded Time 08/22/20 22 NCV/EMG completed Rigo Rico MD 08/22/2022 13:22:36 10/07/19 21 NCV/EMG completed Rigo Rico MD 10/07/2020 09:42:32 07/05/20 18 NCV/EMG completed Rigo Rico MD 07/05/2018 13:18:26 primary fusion of cervical spine completed Georgia Rico MD 07/19/2022 12:15:05 lumbar spinal fusion completed Georgia Rico MD 07/19/2022 12:15:15 fusion of thoracic spine completed Georgia Rico MD 07/19/2022 12:15:28 Shoulder Surgery completed Georgia Rico MD 07/19/2022 12:15:36 Hysterectomy completed Georgia Rico MD 07/19/2022 12:15:44 laser assisted in situ keratomileusis completed Georgia Rico MD 07/19/2022 12:15:52 partial glossectomy completed Georgia Rico MD 07/19/2022 12:16:06 Imaging Results None recorded. Procedure Notes None recorded. Medical Equipment None Reported. Allergies No known drug allergies Medications Name Sig Start Date Stop Date Status Note LastModified by Organization Details LastModified Time Santyl 250 unit/gram topical ointment APPLY NICKEL THICK AMOUNT TO WOUND BASE D 07/19 completed Not Available Not Available Not Available doxycycline hyclate 100 mg capsule TAKE 1 CAPSULE BY MOUTH TWICE DAILY. 07/19 completed Not Available Not Available Not Available clindamycin HCl 300 mg capsule TAKE 1 CAPSULE BY MOUTH 3 TIMES DAILY. 07/19 completed Not Available Not Available Not Available azithromyci n 250 mg tablet TAKE 2 TABLETS BY MOUTH TODAY THEN 1 TABLET BY MOUTH ONCE A DAY FOR 4 DAYS 07/19 completed Not Available Not Available Not Available fluconazole 150 mg tablet TAKE 1 TABLET BY MOUTH ONCE FOR 1 DOSE. 07/19 completed Not Available Not Available Not Available benzonatate 200 mg capsule TAKE 1 CAPSULE BY MOUTH AT BEDTIME FOR 10 DAYS 07/19 completed Not Available Not Available Not Available fluconazole 200 mg tablet TAKE 1 TABLET BY MOUTH FOR 1 DOSE 07/19 completed Not Available Not Available Not Available prednisone 20 mg tablet TAKE 3 TABLETS BY MOUTH ONCE DAILY X 7 DAYS, THEN 2 TABS DAILY X 7 DAYS, THEN 1 TAB DAILY X 7 DAYS, THEN 1/2 TAB DAILY X 7 DAYS 07/19 completed Not Available Not Available Not Available Synthroid 100 mcg tablet TAKE 1/2 TABLET BY MOUTH DAILYI active Not Available Not Available No t Available prednisone 5 mg tablet TAKE 4TABS 2XDAILY X2DAYS. 3TABS 2XDAILY X2DAYS. 2TABS 2XDAILY X3DAYS. 1TAB DAILY X3DAYS 07/19 completed Not Available Not Available Not Available phentermine 37.5 mg tablet TAKE 1 TABLET BY MOUTH ONCE DAILY 07/19 completed Not Available Not Available Not Available sulfamethox azole 800 mg-trimetho prim 160 mg tablet TAKE 1 TABLET BY MOUTH TWICE A DAY FOR 7 DAYS 07/19 completed Not Available Not Available Not Available tramadol 50 mg tablet TAKE 1 TABLET BY MOUTH EVERY 6 (SIX) HOURS NEEDED FOR PAIN FOR UP TO 3 DAYS. MAX DAILY AMOUNT: 200 MG 07/19 completed Not Available Not Available Not Available meloxicam 7.5 mg tablet TAKE 1 TABLET BY MOUTH ONCE DAILY. active Not Available Not Available No t Available methocarbam ol 750 mg tablet TAKE 1 TABLET BY MOUTH 3 TIMES DAILY NEEDED FOR PAIN active Not Available Not Available No t Available dicyclomine 20 mg tablet TAKE 1 TABLET BY MOUTH FOUR TIMES A DAY NEEDED 07/19 completed Not Available Not Available Not Available progesteron e micronized 200 mg capsule TAKE 1 CAPSULE BY MOUTH AT BEDTIME 07/19 completed Not Available Not Available Not Available Synthroid 50 mcg tablet TAKE 1 TABLET BY MOUTH EVERY DAY active Not Available Not Available No t Available docusate sodium 100 mg capsule TAKE 1 CAPSULE BY MOUTH THREE TIMES A DAY NEEDED 07/19 completed Not Available Not Available Not Available diclofenac sodium 75 mg tablet,demetrio yed release TAKE 1 TABLET BY MOUTH TWICE A DAY NEEDED 07/19 completed Not Available Not Available Not Available montelukast 10 mg tablet TAKE 1 TABLET BY MOUTH ONCE DAILY AT BEDTIME active Not Available Not Available No t Available mupirocin 2 % topical ointment APPLY TO AFFECTED AREA(S) 3 TIMES DAILY. 07/19 completed Not Available Not Available Not Available metoprolol succinate ER 25 mg tablet,exte nded release 24 hr TAKE 1 TABLET BY MOUTH ONCE DAILY 07/19 completed Not Available Not Available Not Available levofloxaci n 500 mg tablet TAKE 1 TABLET BY MOUTH EVERY 24 HOURS FOR 10 DAY(S) 07/19 completed Not Available Not Available Not Available methylpredn isolone 4 mg tablets in a dose pack TAKE 6 TABLETS ON DAY 1,THEN 5 TABS ON DAY 2,THEN 4 TABS ON DAY 3, 3 TABS ON DAY 4,THEN 2 TABS ON DAY 5 AND 1 TAB ON DAY 6. *TAKE WITH FOOD* 07/19 completed Not Available Not Available Not Available albuterol sulfate HFA 90 mcg/actuati on aerosol inhaler INHALE 2 PUFFS BY MOUTH 4 TIMES DAILY NEEDED. active Not Available Not Available No t Available cefdinir 300 mg capsule TAKE 1 CAPSULE BY MOUTH EVERY 12 HOURS FOR 7 DAYS 07/19 completed Not Available Not Available Not Available doxycycline hyclate 100 mg tablet TAKE 1 TABLET BY MOUTH 2 TIMES A DAY FOR 10 DAYS 07/19 completed Not Available Not Available Not Available naproxen 500 mg tablet TAKE 1 TABLET BY MOUTH TWICE A DAY 07/19 completed Not Available Not Available Not Available duloxetine 30 mg capsule,del ayed release TAKE ONE CAPSULE BY MOUTH TWICE DAILY FOR DEPRESSIO N active Not Available Not Available No t Available hydrochloro thiazide 12.5 mg tablet TAKE ONE TABLET BY MOUTH ONCE DAILY NEEDED FOR SWELLING active Not Available Not Available No t Available PROJECT BUYER Thyroid 30 mg tablet TAKE 1 TABLET BY MOUTH EVERY DAY 07/19 completed Not Available Not Available Not Available Flonase Sensimist 27.5 mcg/actuati on nasal spray,suspe nsion USE 1 SPRAY IN EACH NOSTRIL ONCE A DAY 25 active Not Available Not Available No t Available Afluria Qd 2018- (36 mos up)(PF)60 mcg (15 mcg x4)/0.5 mL IM syringe TO BE ADMINISTE RED BY PHARMACIS T FOR IMMUNIZAT ION 07/19 completed Not Available Not Available Not Available BinaxNOW COVID-19 Ag Self Test kit USE DIRECTED 08/22 completed Not Available Not Available Not Available Wegovy 2.4 mg/0.75 mL subcutaneou s pen injector INJECT 2.4 MG SUBCUTANE OUSLY ONCE WEEKLY. active Not Available Not Available No t Available Wegovy 1.7 mg/0.75 mL subcutaneou s pen injector INJECT 1.7 MG SUBCUTANE OUSLY ONCE A WEEK FOR 28 DAYS 07/19 completed Not Available Not Available Not Available Wegovy 1 mg/0.5 mL subcutaneou s pen injector INJECT ONCE WEEKLY DIRECTED 07/19 completed Not Available Not Available Not Available Wegovy 0.5 mg/0.5 mL subcutaneou s pen injector INJECT 0.5 MG ONCE WEEKLY FOR 28 DAYS 07/19 completed Not Available Not Available Not Available Vitals Date Recorded Body height Body mass index (BMI) Body weight Heart rate Respiratory rate Systolic blood pressure Diastolic blood pressure Provider Name and Address Organization Details Last Updated DateTime 157.48 cm 36.6 kg/m2 10673.4 7 g 75 /min 16 /min 127 mm[Hg] 76 mm[Hg] Sae [facility] [address] [place] [address], [phone] 0STEPHANY MD 12:32:07 Date Recorded Body height Body mass index (BMI) Body weight Provider Name and Address Organization Details Last Updated DateTime 08/22/2022 157.48 cm 36.6 kg/m2 72254.47 g Sae Rico MD [address], [facility] [address], [address]STEPHANY MD 08/22/2022 11:41:06 Date Recorded Body height Provider Name an d Address Organization Details Last Updated DateTime 08/22/2022 157.48 cm Georgia Rico MD 08/22/2022 11:11:05 Social History Question Answer Notes LastModified by Organizat ion Details LastModified Time Tobacco Smoking Status Never Smoker STEPHANY Campa MD 07/19/2022 12:14:48 In The 14 Days Before Symptom Onset, Have You Had Close Contact With A Laboratory-confirm ed COVID-19 While That Case Was Ill? No Information n ot available 07/19/2022 In The 14 Days Before Symptom Onset, Have You Had Close Contact With A Person Who Is Under Investigation For COVID-19 While That Person Was Ill? No Information not available 07/19/2022 Have You Been To An Area Known To Be High Risk For COVID-19? No Information not available 07/19/2022 What Was The Date Of Your Most Recent Tobacco Screening? 08/22/2022 Information not available 08/22/2022 Sex: Unknown Functional Status Question Answer Note LastModified by Organization D etails LastModified Time What is your level of alcohol consumption? None Information not available 07/19/2022 Are you able to walk? YESWOREST Information not available 07/19/2022 Mental Status None recorded. Family History Relationship Description Onset Age of this Age Resolved Age Notes LastModified by Organization Details LastModified Time Maternal Grandfather Family history of malignant neoplasm Not available 2021 12:14:22 Maternal Grandmother Diabetes mellitus Not available 2021 12:14:29 Maternal Grandmother Hypertensive disorder Not available 2021 12:14:34 Medical History Condition Response Other Arthritis Y Cancer Y Fibromyalgia Y Gynecological HistoryNo gynecological history recorded. Obstetrics History GPAL:G 0 P 0 0 0 0 Past Encounters Encounter ID Performer Location Encounter Start Date Encounter Closed Date Diagnosis/Indication Diagnosis SNOMED-CT Code Diagnosis ICD10 Code Diagnosis Note [id number] Sae Rico MD Main Office [address] [place] [address] 07/05/2018 12:51:37 07/05/2018 13:38:17 Carpal tunnel syndrome 34356909 G56.02 Mild left CTS. Cervical radiculopathy 63116491 M54.12 Mild chronic left C5/6 radiculopa thy. [id number] Sae Rico MD Main Office [address], [address] [place] [address] 10/07/2020 08:38:09 10/07/2020 09:43:28 Paresthesia 26500783 R20.2 [id number] Sae Rico MD Main Office [address], [address] [place] [address] 07/19/2022 11:17:44 07/19/2022 12:30:44 Spinal stenosis of lumbar region 02194331 M48.062 The patient is a 52-year-ol d white female. She had a history of lumbar spinal fusion. She has recurrent paresthesi a, back pain and bowel control difficulty . Spinal stenosis needed to be excluded. [id number] Sae Rico MD Main Office [address], [facility] [address] [place] [address] 08/22/2022 11:08:14 08/22/2022 11:35:32 Lumbosacral radiculopathy 9434371 M54.17 [id number] Sea Rico MD Main Office [address], [facility] [address] [place] [address] 08/22/2022 13:00:39 08/22/2022 13:27:40 Paresthesia 33176086 R20.2 Normal bilateral lower extremitie s. Health Concerns Section Related Observation LastModified by Organization Detai ls LastModified Time None Recorded Concern Status LastModified by Organization Details LastModified Time None Recorded Advance Directives Directive None Recorded Payers Insurance Date Sequence Insurance Name Policy Number Policy Adamson Covered Member ID Adamson Member ID Guarantor Name 08/19/2022 1 [place] [id number] Eleonora Hernandez [id number] Eleonora Hernandez Notes Date Note Type Note Provider Name a nd Address Organization Details Recorded Time 07/19/2022 text/html Mrs. Hernandez is a 52-year-old white female. 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 She is here today with a several months history of numbness and tingling sensation in both legs as if water is trickling down both legs.She had a history of lumbar spinal fusion at L3-L5 in 2016. She has mild low back pain. She has difficulty controlling her bowel. She denies any difficulty with ambulation. She also had a history of cervical spine fusion at C3-C6. She also has a thoracic spinal fusion from T4-L3 for scoliosis and spondylosis. She has been diagnosed with fibromyalgia. She is taking duloxetine and meloxicam. She also takes Robaxin for muscle spasm. She takes Synthroid. She takes Wegovy for weight loss. Sae Rico MD [address] [facility] [address], [place], [address], [facility] - Sae Rico MD 07/19/2022 12:38:13 OBGyn Episode No OBEpisode recorded.
--- OUTSIDE RECORDS SUMMARY | 2025-02-26 11:37 | XMS_ITS | Clinical Summary ---
Author Organization Healthcare Address [address] [place] [address] Care Team Providers Care Shovel Oiler Name Role Phone Jay Jay Deutsch MD Primary Care Provider [phone] Celine Molina AQUATIC DIRECTOR Unavailable [phone] Allergies Active Allergy Reactions Criticality Noted Date Comments Ampicillin Hives,Rash,Unknown - Patient states they do not know rxn details High 09/20/2004 Hydrocodone Itching Medium 11/01/2016 Other Hives Medium 07/06/2021 Opiods - HIves Oxycodone Unknown - Patient st ates they do not know rxn details Low 10/31/2016 Medications albuterol 108 (90 Base) MCG/ACT inhaler INHALE 2 PUFFS BY MOUTH FOUR TIMES DAILY NEEDED 02/19/2021 Active DULoxetine (Cymbalta) [address] capsule Take 30 mg by mouth 1 (one) time each day. 06/29/2021 Active Flonase Sensimist 27.5 MCG/SPRAY nasal spray USE 1 SPRAY IN EACH NOSTRIL ONCE A DAY 25 12/03/2020 Active Synthroid 50 MCG tablet Take 50 mcg by mouth 1 (one) time each day. 2021 Active loratadine (Claritin) 10 MG tablet Take 10 mg by mouth 1 (one) time each day. Active meloxicam (Mobic) 7.5 MG tablet TAKE 1 TABLET BY MOUTH ONCE DAILY WITH MEALS. 06/15/2021 Active methocarbamol (Robaxin) 750 MG tablet Take 750 mg by mouth 2 (two) times a day if needed. 05/15/2021 Active metoprolol succinate XL (Toprol-XL) 25 MG 24 hr tablet Take 25 mg by mouth 1 (one) time each day. 05/15/2021 Active montelukast (Singulair) 10 MG tablet Take 10 mg by mouth every night. 05/12/2021 Active Wegovy 0.25 MG/0.5ML solution auto-injector INJECT 0.25 MG UNDER THE SKIN ONCE WEEKLY FOR 4 WEEKS 06/30/2021 Active Active Problems Problem Noted Date Diagnosed Date H/O bilateral breast reduction surgery H/O total shoulder replacement, right 07/06/2021 H/O total vaginal hysterectomy 07/06/2021 H/O nasal septoplasty 07/06/2021 History of left oophorectomy 07/06/2021 History of tonsillectomy 07/06/2021 S/P right knee arthroscopy 07/06/2021 S/P LASIK surgery of both eyes 07/06/2021 Sleep apnea 07/06/2021 Squamous cell carcinoma of tongue 07/06/2021 May-Thurner syndrome 07/09/2020 Symptomatic varicose veins of right lower extrem ity 03/29/2019 Overview (07/06/2021): Added automatically from request for surgery [id number] Edema of right lower extremity 02/08/2019 Venous insufficiency of both lower extremities 0 02/08/2019 Varicose veins of bilateral lower extremities with other complications 02/08/2019 Pain in both lower extremities 02/08/2019 Acquired hypothyroidism 02/22/2016 IBS (irritable bowel syndrome) 02/22/2016 Lumbar stenosis 02/22/2016 S/P lumbar fusion 02/22/2016 Asthma 02/22/2016 Family history of diabetes mellitus (DM) 014 Obesity 06/19/2014 Bacterial vaginitis 01/18/2010 Rash 01/18/2010 Other malaise and fatigue 10/18/2004 Family History Medical History Relation Name Comments Heart disease Father Hypothyroidism Mother Relation Name Status Comments Father Mother Social History Tobacco Use Types Packs/Day Years Used Date Smoking Tobacco: Never Smokeless Tobacco: Never Alcohol Use Standard Drinks/Week Comments Never 0 (1 standard drink = 0.6 oz pur e alcohol) Comments Unknown Sex and Gender Information Value Date Recorded Sex Assigned at Female 07/05/2021 9:20 PM EDT Legal Sex Female 6:20 PM EDT Gender Identity Female 07/05/2021 9:20 PM EDT Sexual Orientation Straight 07/05/2021 9: 20 PM EDT Last Filed Vital Signs Vital Sign Reading Time Taken Comments Blood Pressure 115/61 10/27/2021 3:48 PM EST Pulse 85 10/27/2021 3:48 PM EST Temperature - - Respiratory Rate - - Oxygen Saturation - - Inhaled Oxygen Concentration - - Weight 96.2 kg (212 lb) 07/06/2021 2:34 PM EDT Height 157.5 cm (5' 2 ) 07/06/2021 2:34 PM EDT Body Mass Index 38.78 07/06/2021 2:34 PM EDT Plan of Treatment Health Maintenance Due Date Last Done Comments Dental Oral Exam 1970 Dental Prophylaxis 1970 Dental X-Ray: Bitewings 1969 Dental X-Ray: Full Mouth 1969 [facility]-Depression Screening 1969 [facility]-Infant/Child/Adol SDOH Screenings 1969 [facility]- SDOH Screenings 1987 [facility]-Adult SDOH Screenings 1987 CT Colonography 2014 Colonoscopy 2014 FIT-DNA 2014 FIT 2014 FOBT 2014 Sigmoidoscopy 2014 [facility]-Colorectal Cancer Screening 2014 [facility]-Pneumococcal Vaccine: 50+ Years (1 of 1 - PCV) 2019 [facility]-Zoster Vaccines (1 of 2) 2019 [facility]-Pap Smear 12/15/2020 12/15/2017 [facility]-Cervical Cancer Screening 12/15/2022 [facility]-HPV/Cotest 12/15/2022 12/15/2017 XQN-[id number]-50 Vaccine ( - season) 2024 10/21/2020, 09/24/2020 [facility]-Influenza Vaccine (Season Ended) 2025 10/10/2019, 04/22/2017 [facility]-DTaP,Tdap,and Td Vaccines (2 - Td or Tdap) 05/08/2030 05/08/2020, 04/19/2001 [facility]-Hepatitis B Vaccines Completed 996, 06/29/1995, 05/31/1995 [facility]-Breast Cancer Screening Discontinued 04/04, 04/22/2024, 04/13/2023, Additional history exists HPV Vaccines Aged Out No longer eligi ble based on patient's age to complete this topic [facility]-HIB Vaccines Aged Out No longer e ligible based on patient's age to complete this topic [facility]-Hepatitis A Vaccines Aged Out No longer eligible based on patient's age to complete this topic [facility]-IPV Vaccines Aged Out No longer e ligible based on patient's age to complete this topic [facility]-Rotavirus Vaccines Aged Out No lo nger eligible based on patient's age to complete this topic Procedures Procedure Name Priority Date/Time Associated Diagnosis Comments CYTO DATA CONVERSION Routine 12/15/2017 12:00 AM EDT from Last 3 Months or Most Recently Relevant to Health Maintenance Results * Cytology (12/15/2017 12:00 AM EDT) 12/15/2017 12/15/2017 4:0 2 PM EDT Narrative SUNQUEST - 12/18/2017 2:58 PM EDT [facility] MR #: [id number] [facility] [address] [place] [address] 1970 (Age: 47) FW Collect Date: 12/15/2017 00:00 Receipt Date: 12/15/2017 16:02 Page 1 DEPARTMENT OF PATHOLOGY AND LABORATORY MEDICINE CYTOPATHOLOGY REPORT Email: [email or web address] [phone] ATTENDING MD/Practitioner: Benny Rodriguez M.D. Service: [facility] Location: [facility] Reported: 12/18/2017 14:58 Collected: 12/15/2017 00:00 DIAGNOSIS A. LEFT MIDLINE NECK LYMPH NODE, ULTRASOUND GUIDED FNA (SMEARS AND CELL CONCENTRATE): - LYMPHOID TISSUE, NO TUMOR SEEN. B. LEFT LEVEL IV LYMPH NODE, ULTRASOUND GUIDED FNA (SMEARS AND CELL CONCENTRATE): - LYMPHOID TISSUE, NO TUMOR SEEN. Electronically Signed Out Lisa Epps MD PROCEDURES/ADDENDA GROSS DESCRIPTION: A: 5 ml's of clear fluid. Needle rinse fluid processed as ThinPrep for complete evaluation of sample. B: 5 ml's of clear fluid. Needle rinse fluid processed as ThinPrep for complete evaluation of sample. CLINICAL INFORMATION: CLINICAL DIAGNOSIS SCC- surgery neck dissection A: Left (midline) node, base of tongue FNA performed by: Dr. Rodriguez Number of sticks: 3 Immediate evaluation performed by: Dr. Epps Evaluation episode #1: Acellular 2-3: Lymphoid tissue, NTS B: FNA performed by: Dr. Rodriguez Number of sticks: 3 Immediate evaluation performed by: Dr. Epps Evaluation episode # 1-2: Hemodilute LT, NTS 3: Same This service has been rendered in part by a resident. A pathologist has personally reviewed the slides/tissue and has rendered and is responsible for the diagnosis that appears on the report. SPECIMEN DESCRIPTION: A: LEFT MIDLINE NODE, US GUIDED FNA DIFF-QUIK x 3, PAP STAIN x 3, THIN PREP PROCESS CELLULAR ENHANCEMENT B: LEFT LEVEL IV NODE, US GUIDED FNA DIFF-QUIK x 3, PAP STAIN x 3, THIN PREP PROCESS CELLULAR ENHANCEMENT ICD: R59.0 Localized enlarged lymph nodes Z85.89 Personal history of malignant neoplasm of organs and systems F: A; 385[address] [address], [address]150, 51841, 32289, 16094 B; 24094 [address], [address], [address], [address], [address] SNOMED CODES: A; L44220 P1149 Y48819 [id number] B; U93309 P1149 [id number] A resident has participated in this service. A pathologist has performed and is responsible for the reported pathologic evaluation. us Priscila Rodriguez MD LAB PATHOLOGY ORDERABLES Final R esult SUNQUEST from Last 3 Months or Most Recently Relevant to Health Maintenance Insurance [employer] Care Teams Shovel Oiler Relationship Specialty Start Date End Date Jay Jay Deutsch MD [address] [place] [address] PCP - General 01/15/21 Celine Molina, JAZZ [address] [facility] [address] [place] [address] Nurse Practitioner Neurosurgery 07/06/21
--- OUTSIDE RECORDS SUMMARY | 2025-02-26 11:37 | XMS_ITS | Encounter Summary ---
Author Organization [facility] Address [facility] [place] [address] Phone Care Team Providers Care Research Affiliate Name Role Phone Get NORRIS MD, Leyla Herndon Primary Care Provider + Reason for Visit * Reason Onset Date Comments Refill Request 08/31/2023 Encounter Details Date Type Department Care Team (Late st Contact Info) Description 08/31/2023 Refill [facility] [address] [place] [address] Estrella Ann MD [address] [place] [address] Primary hypothyroidism; Family history of diabetes mellitus (DM) Social History Tobacco Use Types Packs/Day Years [...] encounter Miscellaneous Notes * Telephone Encounter - Alphonso Yo Registered Nurse - 08/31/2023 11:03 AM EST VICKY:07/26/23 Pending OV:07/31/24 Name of Med: Synthroid Last refill date: 07/27/22 Last refill amount: 90 Number of refills: 3 Patient comment: Need to change to [facility] Evette and I can't find where to change pharmacy info. [address] [place] [address] documented in this encounter Plan of Treatment Upcoming Encounters Date Type Department Care Team (Late st Contact Info) Description 07/30/2025 12:00 PM EST Office Visit [facility] [address] [place] [id number] Estrella Ann MD [address] [place] [address] documented as of this encounter Visit Diagnoses Diagnosis Primary hypothyroidism Unspecified hypothyroidism Family history of diabetes mellitus (DM) Family history of diabetes mellitus documented in this encounter Care Teams Research Affiliate Relationship Specialty Start Date End Date Leyla Deutsch MD, [address] [facility] [address] [address] PCP - General 04/29/08 documented as of this encounter
--- OUTSIDE RECORDS SUMMARY | 2025-02-26 11:37 | XMS_ITS | Clinical Summary ---
Author Organization [facility] Address [address] [place] [address] Phone Care Team Providers Care Government Documents Librarian Name Role Phone Get NORRIS, Leyla NORRIS [...] 10/21/2020,09/24/2020 Influenza Vaccine, Inactivated, Quadrivalent PF 06/19/2014 Family History Medical History Relation Name Comments Thyroid Disease Maternal Grandmother Thyroid Disease Mother Relation Name Status Comments Maternal Grandmother Mother Social History Tobacco Use Types Packs/Day [...] Description 07/30/2025 12:00 PM EST Office Visit [facility] [address] [place] [address] Estrella Ann MD [address] [place], [place] [id number] Health Maintenance Due Date Last Done Comments Pap Screening 1990 Mammogram Screening 2009 Colonoscopy 2014 Pneumococcal 50+ (1 of 1 - PCV) 2019 Shingrix (#1) 2019 COVID-19 Vaccine (3 - 2023-2 5 season) 2024 10/21/2020, 09/24/2020 Influenza Vaccine (Season Ended) 2025 10/10/2019, 04/22/2017, 06/19/2014 DTap,Tdap,and Td (2 - Td or Tdap) 05/08/2030 05/08/2020, 04/19/2001 RSV Vaccine (60+ or ) (1 - 1-dose 75+ series) 2044 HPV Aged Out No longer eligi ble based on patient's age to complete this topic Meningococcal conjugate donal nt 4 (MCV4) Aged Out No longer eligible b ased on patient's age to complete this topic RSV Immunization (<20 months) Aged Out No longer eligible based on patient's age to complete this topic Insurance JON [facility] ALL OTHERS NOT MEDICARE Care Teams Government Documents Librarian Relationship Specialty Start Date End Date Leyla Deutsch MD, [address] [place] [address] [address] [address] PCP - General 04/29/08
--- OUTSIDE RECORDS SUMMARY | 2025-02-26 11:37 | XMS_ITS | Clinical Summary ---
Author Organization [facility] Address [address] [place] [address] Phone Care Team Providers Care Boat Dock Operator Name Role Phone Jay Jay Deutsch MD Primary Care Provider [phone] Allergies Active Allergy Reactions Criticality Noted Date Comments Adhesive Rash High 11/21/2023 Clindamycin Rash High 11/21/2023 Possible SJS Hydrocodone-Acetaminophen Itching 05/20/2024 Morphine Hives 11/20/2018 Other reaction(s): Not available <paragraph>Patient stated that she has issues with opioids and last time she took opioid (hydrocodone) she broke out in hives on the bottom of her feet .</paragraph> Opioids - Morphine Analogues Hives 11/20/2018 Patient stated that she has issues with opioids and last time she took opioid (hydrocodone) she broke out in hives on the bottom of her feet . Vancomycin Rash High 11/21/2023 Possible SJS Medications montelukast (SINGULAIR) 10 mg Oral Tablet Take 10 mg by mouth every evening. Active albuterol (PROVENTIL HFA;VENTOLIN HFA) 90 mcg/actuation Inhl HFA Aerosol Inhaler Inhale 2 Puffs into the lungs as needed for Wheezing. Active methocarbamol (ROBAXIN) 750 mg Oral Tablet Take 750 mg by mouth 2 times daily. Active fluticasone furoate (FLONASE SENSIMIST NASL) by Nasal route. Active LEVOthyroxine (SYNTHROID) 50 mcg Oral Tablet Take by mouth daily. Active DULoxetine (CYMBALTA) 60 mg Oral Capsule, Delayed Release(E.C.) Take by mouth daily. Active pregabalin (LYRICA) 50 mg Oral Capsule Take 75 mg by mouth 2 times daily. Active rivaroxaban (XARELTO) 20 mg Oral Tablet Take 10 mg by mouth daily. Active estradioL (ESTRACE) 0.01 % (0.1 mg/gram) Vagl CreamIndications :Vaginal atrophy Do not use applicator. Blueberry size amount (0.5g) with fingertip application nightly. 42.5 g 1 4 Active Additional Information Patient not taking.Reason: Therapy Completed, Reported on 09/25/2024 levocetirizine (XYZAL) 5 mg Oral Tablet Take 5 mg by mouth every evening. Active metFORMIN (GLUCOPHAGE) 500 mg Oral Tablet Take by mouth daily. Pt states she is taking for weight loss. Active azithromycin (ZITHROMAX) 250 mg Oral Tablet 5 Active methylPREDNISolo ne (MEDROL DOSPACK) 4 mg Oral Tablets, Dose PackIndications: S/P arthroscopic partial medial meniscectomy,Con tusion of left knee, initial encounter follow package directions 21 Tablet 5 Active PAIN CREAM (KET5%/BAC2%/DIC LO3%/GABAP6%/LID O2%/PRIL2%) Apply 2 Pump topically 3 times daily. 1 Each 5 Active Additional Information Patient not taking.Reason: Therapy Completed, Reported on 02/19/2025 MOUNJARO 5 mg/0.5 mL SubQ Pen Injector INJECT 5MG UNDER THE SKIN EVERY 7 DAYS FOR 4 WEEKS 5 Active fUROsemide (LASIX) 20 mg Oral Tablet Take 20 mg by mouth daily. 5 Active Active Problems Problem Noted Date Diagnosed Date Primary osteoarthritis of left knee 02/21/2025 Strain of thoracic spine 06/05/2024 Pseudoarthrosis of cervical spine 03/13/2024 Acute medial meniscal injury of left knee 2023 Osteoarthritis of left patellofemoral joint 04/2024 Cubital tunnel syndrome, left 05/17/2023 Overview (05/17/2023): Added automatically from request for surgery [id number] Acute pain of left shoulder 02/03/2023 Localized osteoarthritis of left shoulder 2022 Overview (11/22/2022): Added automatically from request for surgery [id number] May-Thurner syndrome 07/09/2020 Symptomatic varicose veins of right lower extrem ity 03/29/2019 Overview (03/29/2019): Added automatically from request for surgery [id number] Venous insufficiency of both lower extremities 0 02/08/2019 Varicose veins of bilateral lower extremities with other complications 02/08/2019 Pain in both lower extremities 02/08/2019 Edema of right lower extremity 02/08/2019 Bacterial vaginitis 01/18/2010 Rash 01/18/2010 Encounters Date Type Department Care Team Description 02/24/2025 Travel 02/21/2025 Orders Only [address] [address] Jay Jay Hanks MD Primary osteoarthritis of left knee (Primary Dx) 02/21/2025 [facility] [address] Jay Jay Hanks MD 02/20/2025 [facility] [address] [address] Jay Jay Hanks MD 02/19/2025 11:00 AM EDT [facility] [address] [facility] [address] [place] [address] Jay Jay Hanks MD Primary osteoarthritis of left knee (Primary Dx) 02/19/2025 [facility] [address] [address] Jay Jay Hanks MD 02/12/[address] [address] Gumaro Myles MD from Last 3 Months Surgical History Surgery Date Site/Laterality Comments HYSTERECTOMY SPINAL FUSION TUBAL LIGATION TONSILLECTOMY LAPAROSCOPY BACK SURGERY 12/08/2014 fusion with rods and screws. OVARY REMOVAL 12/08/2014 Left states removed after hysterectomy. NOSE SURGERY 12/08/2014 Bilateral Nasal turbinate surgery. SHOULDER ARTHROSCOPY 12/09/2014 Shoulder/Right RIGHT SHOULDER ARTHROSCOPY, BICEPS TENOTOMY, MICROFRACTURE OF GLENOID, LABRAL DEBRIDEMENT; Surgeon: Gumaro Myles MD; Location: [facility] MAIN OR; Service: Orthopedics GLOSSECTOMY 09/04/2016 - 09/03/2017 partial BREAST REDUCTION SURGERY 09/04/2016 - 09/03/2017 LYMPH NODE DISSECTION pt states she had 46 lymph nodes removed from her neck area LASIK KNEE ARTHROSCOPY 11/29/2018 Right RIGHT KNEE ARTHROSCOPY PARTIAL MEDIAL MENISCECTOMY AND CHONDROPLASTY; Surgeon: Gumaro Myles MD; Location: [facility]; Service: Orthopedics VARICOSE VEIN SURGERY 05/03/2019 Right Radiofrequency ablation right greater saphenous vein ; Surgeon: Omar Garcia DO; Location: [facility] MAIN OR; Service: Vascular ANKLE SURGERY 04/27/2020 Right soft tissue mass removed-[facility] SHOULDER ARTHROPLASTY 06/01/2020 Shoulder/Right RIGHT TOTAL SHOULDER ARTHROPLASTY BICEPS TENODESIS; Surgeon: Kojo Brown MD; Location: [facility]; Service: Orthopedics Medical devices from this surgery are in the Medical Devices section. IR VENOGRAM LOWER EXTREMITY RIGHT 07/09/2020 IR VENOGRAM LOWER EXTREMITY RIGHT 07/09/2020 Omar Garcia DO [facility] IR IR ULTRASOUND GUIDED VASCULAR ACCESS 07/09/2020 IR ULTRASOUND GUIDED VASCULAR ACCESS 07/09/2020 Omar Garcia DO [facility] IR IR INTRAVASCULAR ULTRASOUND INITIAL NON CORONARY VESSEL 07/09/2020 IR INTRAVASCULAR ULTRASOUND INITIAL NON CORONARY VESSEL 07/09/2020 Omar Garcia DO [facility] IR CERVICAL SPINE SURGERY fusion FOOT SURGERY Right bunionectomy r big toe SHOULDER ARTHROPLASTY 01/23/2023 Shoulder/Left LEFT TOTAL SHOULDER ARTHROPLASTY WITH BICEPS TENODESIS; Surgeon: Florencio Brown MD; Location: [facility]; Service: Orthopedics Medical devices from this surgery are in the Medical Devices section. ULNAR TUNNEL RELEASE 06/07/2023 Arm/Elbow/Left Left Cubital Tunnel Release, transposition; Surgeon: Asim Schaeffer MD; Location: [facility]; Service: Orthopedics KNEE ARTHROSCOPY 07/11/2024 Knee/Left Left knee arthroscopic partial medial meniscectomy with arthroscopic chondroplasty; Surgeon: Gumaro Myles MD; Location: [facility]; Service: Orthopedics Medical History Medical History Date Comments Asthma 12/08/2014 exercised induce d. last attack years ago. Irritable bowel syndrome 12/08/2014 Thyroid disease 12/08/2014 hypothyroid. Urinary tract infection Depression Cancer (HCC) tongue Postoperative nausea and vomiting 12/08/2014 uses patch and does well Sleep apnea use cpap Arthritis Lymphedema alcides lower legs Slow to wake up after anesthesia Family History Medical History Relation Name Comments Thyroid Disease Mother hypothyroid. Anesth Problems Neg Hx Relation Name Status Comments Father Alive healthy. Mother Alive Social History Tobacco Use Types Packs/Day Years [...] on file Sexual Orientation Not on file Obstetrics History Para Term AB IAB SAB Ectopic Multiple Livin g Live Births 2 2 2 Date Outcome GA Total Labor Labor/2nd/3rd Weight Sex Type Anes PTL Rowena A1 A5 Name Clin Para Para Last Filed Vital Signs Vital Sign Reading Time Taken Comments Blood Pressure 101/63 11/14/2024 8:23 AM EDT Pulse 63 11/14/2024 8:23 AM EDT Temperature 36.2 C (97.2 F) 07/11/2024 8:30 AM EST Respiratory Rate 21 07/11/2024 8:18 AM EST Oxygen Saturation 98% 11/14/2024 8:23 AM EDT Inhaled Oxygen Concentration - - Weight 111.1 kg (245 lb) 02/24/2025 10:36 AM EDT Height 157.5 cm (5' 2 ) 02/24/2025 10:36 AM EDT Body Mass Index 44.81 02/24/2025 10:36 AM EDT Plan of Treatment Upcoming Encounters Date Type Department Care Team (Late st Contact Info) Description 02/27/2025 2:30 PM EDT Appointment [facility] [address] [place] [address] Jay Jay Hanks MD [address] [place] [address] 02/27/2025 3:15 PM EDT Clinical Support [facility] [address] [address] 03/06/2025 10:35 AM EDT Hospital En[facility] [address] [place] [address] Jay Jay Hanks MD [address] [place] [address] 03/06/2025 10:35 AM EDT Anesthesia Event [facility] [address] [place] [address] Michelet Cheema MD [address] [facility] [place] [address] 03/06/2025 10:35 AM EDT - 03/06/2025 11:50 AM EDT Surgery [place] [address] Jay Jay Hanks MD [address] [place] [address] TOTAL KNEE REPLACEMENT ROBOTIC ASSISTED-MIRIAM 03/13/2025 12:00 PM EDT Office Visit [facility] [address] [facility] [address] [place] [address] Stan Mcmahon, PHILLIP 03/19/2025 9:15 AM EDT Office Visit [facility] [address] [address] Brandi Wyman APRN [address] [id number] Scheduled Procedures Name Priority Associated Diagnoses Date/Ti me TOTAL KNEE REPLACEMENT [facility]OTIC ASSISTED-[facility] Primary osteoarthritis of left knee 03/06/2025 10:35 AM EDT Health Maintenance Due Date Last Done Comments Annual Wellness Exam 1972 HPV/Pap Cotest 1999 Cologuard 2014 Colon Cancer Screening 2014 Colonoscopy 2014 FIT 2014 Sigmoidoscopy 2014 Virtual Colonography 2014 Cervical Cancer Screening 2016 Pap Smear 2016 2013 Zoster (1 of 2) 2019 COVID-19 Vaccine (3 - season) 2024 10/21/2020, 09/24/2020 Pneumococcal Vaccine 50+ (2 of 2 - PCV) 04/02/2025 04/02/2024 Influenza Vaccine (Season Ended) 2025 10/18/2019, 10/10/2019, 10/08/2018, Additional history exists Breast Cancer Screening 04/22/2026 04/22/20 24, 04/13/2023, 03/08/2022, Additional history exists DTaP/TDaP/Td (2 - Td or Tdap) 05/08/2030 05/08/2020, 04/19/2001 Hepatitis B Vaccine Completed 12/07/1995, 06/29/1995, 05/31/1995 Meningococcal B Vaccine Aged Out No l onger eligible based on patient's age to complete this topic Medical Devices Implanted Type Area Diagnostics Tech Device Identifier Shelf Expiration Date Model / Serial / Lot Back Hardware Cement Bn Refobacin St Latex Free Disposable - [id number] Implanted:Qty : 1 on 06/01/2020 by Florencio Brown MD at [facility] Right: Shoulder AINSLEY:AINSLEY 01/01/2022 [id number] / / [id number] Glenoid Self-Pressuri zing Size 44 - [id number] Implanted:Qty : 1 on 06/01/2020 by Florencio Brown MD at [facility] Right: Shoulder JALEEL:ORTHOPE DICS [id number] 09/03/2024 [id number] / / [id number] Stem Pressfit Humeral Reunion 9mm X 93mm - [id number] Implanted:Qty : 1 on 06/01/2020 by Florencio Brown MD at [facility] Right: Shoulder JALEEL:ORTHOPE DICS [id number] 12/31/2023 5567-P-3009 / / [id number] Head Humeral Radius Single Size 48 15mm Thkns - [id number] Implanted:Qty : 1 on 06/01/2020 by Florencio Brown MD at [facility] Right: Shoulder JALEEL:ORTHOPE DICS [id number] 06/30/2024 5552-[id number]-[id number] / / [id number] Cement Refobacin 1x40 Gm Hvisc Bn Gent Lf - [id number] Implanted:Qty : 1 on 01/23/2023 by Florencio Brown MD at [facility] Left: Shoulder AINSLEY:AINSLEY 03/03/2025 [id number] / / [id number] Head Hum 44mm Std 16mm Reunion Sgl Rad - [id number] Implanted:Qty : 1 on 01/23/2023 by Florencio Brown MD at [facility] Left: Shoulder JALEEL:ORTHOPE DICS [id number] 01/26/2026 5552-[id number] / / [id number] Stem Pressfit Humeral Reunion 8mm X 92mm - [id number] Implanted:Qty : 1 on 01/23/2023 by Florencio Brown MD at [facility] Left: Shoulder JALEEL:ORTHOPE DICS [id number] 09/22/2024 [id number]-3008 / / [id number] Procedures Procedure Name Priority Date/Time Associated Diagnosis Comments MM MAMMO DIGITAL ARCHANA SCREEN BILAT Routine 04/22/2024 3:02 PM EDT Encounter for screening mammogram for malignant neoplasm of breast from Last 3 Months or Most Recently Relevant to Health Maintenance Results * MM MAMMO DIGITAL ARCHANA SCREEN BILAT (04/22/2024 3:02 PM EDT) Anatomical Region Laterality Modality Breast Bilateral Mammography 04/22/2024 3:02 PM EDT Impressions 04/23/2024 8:50 AM EDT Negative ([id number]) RECOMMENDATION: Routine Screening Mammogram in 1 Year COMMENTS: Narrative 04/23/2024 8:50 AM EDT EXAM: MM MAMMO DIGITAL ARCHANA SCREEN BILAT EXAM DATE: 04/22/2024 3:02 PM INDICATION: Z12.31-Encounter for screening mammogram for malignant neoplasm of [id number] COMPARISON STUDIES: Compared with prior studies the most recent being 2022 TISSUE DENSITY: There are scattered areas of fibroglandular density. FINDINGS: No mammographic evidence of malignancy. Procedure Note Michael Tobar MD - 04/23/2024 EXAM: MM MAMMO DIGITAL ARCHANA SCREEN BILAT EXAM DATE: 04/22/2024 3:02 PM INDICATION: Z12.31-Encounter for screening mammogram for malignantneoplasm of [id number]-[id number]-95-CM COMPARISON STUDIES: Compared with prior studies the most recent [id number] TISSUE DENSITY: There are scattered areas of fibroglandular density. FINDINGS: No mammographic evidence of malignancy. IMPRESSION: Negative (DMB-Henizfuf-8) RECOMMENDATION: Routine Screening Mammogram in 1 Year COMMENTS: Dara Gallego DRIFTMAN IMG MAMMOGRAPHY ORDERABLES Fin al Result from Last 3 Months or Most Recently Relevant to Health Maintenance [facility] PPO ANTHEM PPO ANTHEM PPO Advance Directives For more information, please contact: [phone] * Full Code (Latest Code Status on File) Date Activated Date Inactivated Comments 06/01/2020 12:20 PM 06/02/2020 3:40 PM Care Teams Boat Dock Operator Relationship Specialty Start Date End Date Jay Jay Deutsch MD [address] [facility] [address] [place] [address] PCP - General 05/31/11
--- NOTE | 2025-02-26 11:50 | ECG_ITS ---
APPROVED REPORT Exam: Resting ECG HR:58 bpm ECG Measurements Heart Rate 58 AXES TN 149 P 44 QRSd 101 QRS -1 QT 425 T 31 QTc 421 Conclusion SINUS BRADYCARDIA LOW QRS VOLTAGE IN PRECORDIAL LEADS [QRS DEFLECTION < 1.0 mV IN CHEST LEADS] INFERIOR MYOCARDIAL INFARCTION , PROBABLY OLD [40+ ms Q WAVE AND/OR ST/T ABNORMALITY IN II/aVF] ABNORMAL ECG UNCONFIRMED REPORT Electronically signed by : Juancarlos Arriola MD 02/27/2025 08:33:29
--- NOTE | 2025-02-26 11:54 | XR_ITS ---
FINAL REPORT CLINICAL HISTORY: SOA preop march 06, knee srugery denies soa, cp. hx of PE COMPARISON: None FINDINGS: CHEST 2 VIEWS: No acute pulmonary density is evident. There is no evidence of effusion or other pleural disease. The mediastinum has a normal appearance. There is extensive spinal fixation hardware noted in the thoracolumbar spine, as well as bilateral shoulder arthroplasties. The cardiac silhouette is unremarkable. IMPRESSION: 1. Extensive spinal fixation hardware in the thoracolumbar spine with bilateral shoulder arthroplasties. 2. Otherwise, unremarkable two-view chest. Reviewed, Interpreted and Dictated by Bebo Martin MD Transcribed by Polly Muir Authenticated and [facility]
== END 2025-02-26 23:59 | disposition home or self-care (01) ==
LOC: RAD 11:33
PROVIDERS: PCP Family Medicine; Visit Provider Family Medicine
DX: Z01.810 Encounter for preprocedural cardiovascular examination (principal); Z01.811 Encounter for preprocedural respiratory examination; I21.9 Acute myocardial infarction, unspecified; R00.1 Bradycardia, unspecified; Z98.890 Other specified postprocedural states
CPT/HCPCS: 71046; 93005

== ENCOUNTER 2025-02-27 15:38 | Outpatient (CLI) | payer BC, SELFPAY ==
--- OUTSIDE RECORDS SUMMARY | 2025-01-28 06:45 | XMS_ITS ---
Author Organization [facility] Address [address] [facility] [address] [place] [phone] Care Team Providers Care Personal Protection Specialist Name Role Phone [place] Sanjiv Primary Care Provider Leyla Deutsch [phone] Allergies Allergen (clinical drug ingredient) Drug/Non Drug [...] Normal Performing Lab: Notes/Report: Test performed by [facility] [address] [place] [address] [address], [place] [address] Joe Esteban MD, Collating Machine Operator CLIA: [id number] Sodium 141 135-145 mmol/L Potassium 5.1 3.5-5.3 mmol/L Chloride 103 97-108 mmol/L CO2 26 22-32 mmol/L Glucose 83 65-99 mg/dL BUN 16 6-20 mg/dL Creatinine 0.72 0.50-1.00 mg/dL Calcium 9.4 8.6-10.4 mg/dL eGFR by Creatinine 98 >59 mL/min/1.73m2 P-Vitamin D 25-Hydroxy Reviewed date:01/30/2025 08:38:44 AM Interpretation:39.8 Performing Lab: Notes/Report: Test performed by [facility] [address] [place] [address] , [address], [place] [address] Joe Esteban MD, Collating Machine Operator CLIA: [id number] Vitamin D 25-Hydroxy 39.8 30.0-100.0 ng/mL Interpretation [...] BY M OUTH EVERY DAY FOR 90 DAYS; Duration: 90 Active Pregabalin 75 MG 1 capsule Orally Thr ee times a day; Duration: 30 day(s) 10/12/2024 Active Ventolin HFA 108 [...] tablet Orally horace ry 12 hrs as needed; Duration: 30 days 12/30/2024 Active Vitamin D3 125 MCG (5000 UT) 1 tab(s) orally once a day 11/30/2021 Active Mounjaro 2.5 MG/0.5ML as directed Subcutaneous Active Montelukast Sodium 10 MG TAKE 1 TABLET B Y MOUTH EVERYDAY AT BEDTIME Active metFORMIN HCl ER 500 MG 1 tablet with ev ening meal Orally Once a day; Duration: 90 days Active Xarelto 10 MG TAKE 1 TABLET BY SUMIT EVERY DAY WITH FOOD FOR 90 DAYS; Duration: 90 Active Furosemide 20 MG 1 tablet Orally Once a day; Duration: 30 days 12/30/2024 Active Vital Signs Blood pressure systolic 124 mm Hg 01/29/20 25 Blood pressure diastolic 74 mm Hg 025 Heart Rate 76 /min 01/28/2025 Height 62 in 01/28/2025 Weight 247.4 lbs 01/28/2025 BMI 45.25 kg/m2 01/28/2025 Encounters Encounter Location Date Provider Diagnosis [facility] [address] [phone] 01/28/2025 Sanjiv Everett Peripheral edema R60 .0 [...] Name:Sanjiv johnson, 04/28/2025 05:30:00 PM, [address], [address], [place], [place], [phone], Progress Notes * Shon HERNANDEZOB:1970 ( 54 yo F)Acc No.[id number]:01/28/2025 Progress Notes Patient: Eleonora MONSALVE Provider: Callie Everett M.D. :1970 A ge:54 Y S ex:Female Date:01/28/2025 Address:[address] [place], [place] [id number] Subjective: * Chief Complaints: * 1 . [...] Neck Node Dissection 2016, Neck Needle Biopsy, [facility], Negative 12/15/2017, Colonoscopy, Negative, Dr. Kaba, recommended 10yr f/u 03/20/2018, Vein Ablasion 05/03/2019, RT Shoulder Replacment 06/01/2020, Cervical Spine Diskectomies and Fusion C3, C4, C5, C6 08/19/2021, Right Great Toe Bunion Surgery - Dr. Joseph 08/08/2022, Fusion C4-7, left side foramenectomy C6-7 C7-T1 11/13/2023. 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 * Family History: F ather: [...] Examination: E NT/Respiratory: General Appearance: N AD. E yes: P ERRLA, sclera clear. O ral cavity : e rythema without exudate on pharynx. H eart : R RR. L ungs:?clear to auscultation bilaterally. E xtremities : l ess edema today, still some in right leg. Assessment: * Assessment: 1. P eripheral edema [...] by Creatinine 98 >59 - mL/min/1.73m2 * Elena Clemons 01/30/2025 08: 38:35 AM [...] D 25-Hydroxy 39.8 30.0-100.0 - ng/mL * DeonteElena 01/30/2025 08: 38:35 AM > See phone [...] * Procedure Codes: 8 2950 GLUCOSE TEST, 53745 GLYCATED HEMOGLOBIN TEST, Modifiers: QW , 75645 CBC WITH AUTO DIFF, 05100 VENIPUNCT, ROUTINE*, 86766 Urinalysis, no micro, G8783 BP SCR PRFRM [...] phone to report test results,3 Months * Images: Billing Information: * Visit Code: 07077 Office Visit, Est Pt., Level 4. * Procedure Codes: 41430 GLUCOSE TEST. 76668 GLYCATED HEMOGLOBIN TEST. Modifiers: QW 95113 CBC WITH AUTO DIFF. 37930 VENIPUNCT, ROUTINE*. 16419 Urinalysis, no micro. G8783 BP SCR PRFRM RCMDD DEFIND SCR INTVL. G8752 MOST RECENT SYSTOLIC BP < 140MM HG. G8754 MOST RECENT DIASTOLIC BP < 90MM HG. 3044F HG A1C LEVEL LT 7.0%. 3017F COLORECTAL CA SCREEN DOC REV. * Electronic signature of Sweta Everett MD on 02/27/2025 at 03:42 PM EDT Sign off status: Pending * Provider: Callie Everett M.D. Date: 0 01/28/2025 Generated for Kayla padilla/Garrison/eTransmitting on: 0 02/27/2025 03:42 PM EDT History and Physical Notes * HPI [...]
--- OUTSIDE RECORDS SUMMARY | 2025-02-19 11:00 | XMS_ITS | Encounter Summary ---
Author Organization [facility] Address [address] [place] [address] Care Team Providers Care Management Supervisor Name Role Phone Jay Jay Deutsch MD Primary Care Provider +1 [phone] Reason for Referral * Surgical (Routine) - Pending Review Specialty Diagnoses / Procedures Referred By Contac t Referred To Contact Diagnoses Primary osteoarthritis of left knee Procedures AMB [facility] SURGERY COMMUNICATION ORDER Jay Jay Hanks MD [address] [place] [address] Phone: tel: fax: Referral ID Status Reason Start Date Expiration Date V isits Requested Visits Authorized [id number] Pending Review 02/19/2025 02/19/2026 1 1 * Physical Therapy (Routine) - Pending Review Specialty Diagnoses / Procedures Referred By Contac t Referred To Contact Physical Therapy Diagnoses Unilateral primary osteoarthritis, left knee Jay Jay Hanks MD [address] [place] [address] Phone: tel: fax: Referral ID Status Reason Start Date Expiration Date V isits Requested Visits Authorized [id number] Pending Review 02/19/2025 02/19/2026 1 1 Question [...] WO CONTRAST Jay Jay Hanks MD [address] [place] [address] Phone: tel: fax: [facility] [address] [place] [address] Phone: tel: fax: Referral ID Status Reason Start Date Expiration Date V isits Requested Visits Authorized [id number] Pending Review 02/19/2025 02/19/2026 1 1 Reason for Visit * Reason Comments Pain Encounter Details Date Type Department Care Team (Latest Contact Info) Description 02/19/2025 11:00 AM EDT Office Visit [facility] [address] [place] [address] Jay Jay Hanks MD [address] [place] [address] Primary osteoarthritis of left knee (Primary Dx) [...] Hyst Social Drivers of Health Received from [facility] Food Insecurities Received from [facility] Transportation Received from [facility] Family and Community Support Received from [facility] Interpersonal Safety Received from [facility] Housing/Utilities PAST MEDICAL HISTORY Past Medical History: [...] ANKLE SURGERY Right 04/27/2020 soft tissue mass removed-[facility] BACK SURGERY 12/08/2014 fusion with rods and [...] AND CHONDROPLASTY; Surgeon: Gumaro Myles MD; Location: [facility]; Service: Orthopedics KNEE ARTHROSCOPY Left 07/11/2024 Left knee arthroscopic partial medial meniscectomy with arthroscopic chondroplasty; Surgeon: Gumaro Myles MD; Location: [facility]; Service: Orthopedics LAPAROSCOPY LASIK LYMPH NODE DISSECTION pt states she had 46 lymph nodes removed from her neck area NOSE SURGERY Bilateral 12/08/2014 Nasal turbinate surgery. OVARY REMOVAL Left 12/08/2014 states removed after hysterectomy. SHOULDER ARTHROPLASTY Right 06/01/2020 RIGHT TOTAL SHOULDER ARTHROPLASTY BICEPS TENODESIS; Surgeon: Kojo Brown MD; Location: [facility] MAIN OR; Service: Orthopedics SHOULDER ARTHROPLASTY Left 01/23/2023 LEFT TOTAL SHOULDER ARTHROPLASTY WITH BICEPS TENODESIS; Surgeon: Florencio Brown MD; Location: [facility] MAIN OR; Service: Orthopedics SHOULDER ARTHROSCOPY Right 12/09/2014 RIGHT SHOULDER ARTHROSCOPY, BICEPS TENOTOMY, MICROFRACTURE OF GLENOID, LABRAL DEBRIDEMENT; Surgeon:Gumaro Myles MD; Location: [facility] MAIN OR; Service: Orthopedics SPINAL FUSION TONSILLECTOMY TUBAL LIGATION ULNAR TUNNEL RELEASE Left 06/07/2023 Left Cubital Tunnel Release, transposition; Surgeon: Asim Schaeffer MD; Location: [facility]; Service: Orthopedics VARICOSE VEIN SURGERY Right 05/03/2019 Radiofrequency ablation right greater saphenous vein ; Surgeon: Omar Garcia DO; Location: [facility]; Service: Vascular Objective: Estimated body [...] changes in patellofemoral compartment, but minimal - Harding view of the left knee (11/12/2024): - Isolated medial compartment arthritis with joint space narrowing - Subchondral sclerosis - Osteophyte formation - Kellgren-Ivan grade 3 - Mild degenerative changes in patellofemoral compartment, but minimal Please note that this atomic physics professor was created using voice recognition software. Any errors are unintentional and may be due to voice recognition atomic physics professor. The provider informed the patient (or legal customer service representative teacher) on the use of the ambient listening artificial intelligence tool, [employer] to obtain consent to its use. It [...] of such information, the patient (or legal customer service representative teacher), and each individual in attendance with the patient, consented to the use of the AI tool. Jay Jay Hanks MD documented in this encounter Plan of Treatment Upcoming Encounters Date Type Department Care Team (Late st Contact Info) Description 03/05/2025 6:45 AM EDT Appointment [place] [address] [place] [phone] 03/05/2025 8:15 AM EDT Clinical Support [facility] [address] [place] [address] 03/06/2025 10:35 AM EDT Hospital [facility] [address] [place] [address] Jay Jay Hanks MD [address] [place] [address] 03/06/2025 10:35 AM EDT Anesthesia Event [facility] [address] [place] [address] Michelet Cheema MD 1 [facility] [place] [id number] 03/06/2025 10:35 AM EDT - 03/06/2025 11:50 AM EDT [facility] [address] [place] [address] Jay Jay Hanks MD [address] [place] [address] TOTAL KNEE REPLACEMENT ROBOTIC ASSISTED-[facility] 03/13/2025 12:00 PM EDT Office Visit [facility] [address] [facility] [address] [place] [address] Stan Mcamhon, PHILLIP 03/19/2025 9:15 AM EDT Office Visit [facility] [address] [facility] [address] [place] [address] Brandi Wyman APRN [address] [place] [address] Scheduled Orders Name Type Priority Associated Diagnoses Orde r Schedule CT LOWER EXTREMITY LEFT WO CONTRAST Imaging Routine Primary osteoarthritis of left knee 1 Occurrences starting 02/19/2025 until 02/19/2026 HEMOGLOBIN A1C Lab Routine Primary osteoarthritis of left knee 1 Occurrences starting 02/19/2025 until 02/19/2026 Scheduled Procedures Name Priority Associated Diagnoses Date/Ti me TOTAL KNEE REPLACEMENT [facility]OTIC ASSISTED-[facility] Primary osteoarthritis of left knee 03/06/2025 10:35 [...] 2024 documented in this encounter Care Teams Management Supervisor Relationship Specialty Start Date End Date Jay Jay Deutsch MD [address] [place] [address] [address] [place] [phone] PCP - General 05/31/11 documented as of this encounter
--- OUTSIDE RECORDS SUMMARY | 2025-02-26 06:00 | XMS_ITS ---
Author Organization [facility] Address [address] [id number] Care Team Providers Care Stock Drier Tender Name Role Phone Marguerite Sanjiv Primary Care Provider Leyla Deutsch Unavailable [phone] Allergies Allergen (clinical drug ingredient) Drug/Non Drug Allergy documented on EMR Reaction Allergy Type Onset Date Status acetaminophen / hydrocodone HYDROcodone-Acetaminoph en itching Drug Allergy Active Medicinal cephalosporin and acting as antibacterial agent (FN) Cephalosporins Diarrhea Drug Allergy Active oxycodone oxyCODONE hives Drug Allergy Active Results Component Value Reference Range Notes Urinalysis - Inhouse (Not ye t reviewed by provider) Interpretation: Performing Lab: Notes/Report: Color/Clarity yellow/clear Leuk Neg Nitrite Neg Urobili 3.2 Protein Neg pH 5.5 Blood 1+ Sp. Gr. 1.101 Ketone Neg Bili Neg Gluc Neg CBC Venipuncture (in house) (Not yet reviewed by provider) Interpretation: Performing Lab: Notes/Report: wbc 7.6 3.5 - 10 lymph 31.6% 15 - 50 mid 7.5% 2 - 15 gran 60.9% 35 - 80 rbc 4.85 3.5 - 5.5 hgb 14.5 11.5 - 16.5 hct 43.8 35 - 55 mcv 90.3 75 - 100 mch 29.9 25 - 35 mchc 33.1 31 - 38 platlet 360 100 - 400 Glycohemoglobin A1c (in hous e) (Not yet reviewed by provider) Interpretation: Performing Lab: Notes/Report: glycohemoglobin 5.2% 5 - 6.5 % P-Basic Metabolic Panel (BMP ) (Not yet reviewed by provider) Interpretation: Performing Lab: Notes/Report: Test performed by [facility] [address] [place] [address] Olamide [address] , [place] [address] Joe Esteban MD, Accountant Auditor CLIA: [id number] Sodium 142 135-145 mmol/L Potassium 4.3 3.5-5.3 mmol/L Chloride 104 97-108 mmol/L CO2 26 20-32 mmol/L Glucose 94 65-99 mg/dL BUN 20 6-20 mg/dL Creatinine 0.71 0.50-1.00 mg/dL Calcium 9.2 8.6-10.4 mg/dL eGFR by Creatinine 100 >59 mL/min/1.73m2 P-TSH reflex to FT4 (Not yet reviewed by provider) Interpretation: Performing Lab: Notes/Report: Test performed by [facility] [address] [place] [address] [address]lamide [address] , [place] [address] Joe Esteban MD, Accountant Auditor CLIA: [id number] TSH reflex to FT4 1.50 0.43-5.25 mU/L REASON FOR VISIT preop cpx Medications Medication SIG (Take, Route, Frequency, Duration) Notes Start Date End Date Status Synthroid 50 MCG 1 tab(s) orally once a day, except Sun Active Vitamin D3 125 MCG (5000 UT) 1 tab(s) orally once a day 11/30/2021 Active Ventolin HFA 108 (90 Base) MCG/ACT 2 puff(s) inhaled 4 times a day as needed 02/25/2022 Active DULoxetine HCl 60 MG TAKE 1 CAPSULE BY M OUTH EVERY DAY FOR 90 DAYS; Duration: 90 Active Xyzal Allergy 24HR 5 MG 1 tablet in the evening Orally Once a day Active Xarelto 10 MG TAKE 1 TABLET BY SUMIT TH EVERY DAY WITH FOOD FOR 90 DAYS; Duration: 90 Active Methocarbamol 750 MG 1 tablet Orally horace ry 12 hrs as needed; Duration: 30 days 12/30/2024 Active Mounjaro 2.5 MG/0.5ML as directed Subcutaneous Active Furosemide 20 MG TAKE 1 TABLET BY SUMIT TH EVERY DAY FOR 30 DAYS; Duration: 30 Active Pregabalin 75 MG 1 capsule Orally Thr ee times a day; Duration: 30 day(s) 02/12/2025 Active Flonase Sensimist 27.5 MCG/SPRAY USE 1 SPRAY IN EACH NOSTRIL ONCE A DAY Active Montelukast Sodium 10 MG TAKE 1 TABLET B Y MOUTH EVERYDAY AT BEDTIME Active metFORMIN HCl ER 500 MG 1 tablet with ev ening meal Orally Once a day; Duration: 90 days Active Vital Signs Blood pressure systolic 100 mm Hg 02/27/20 Blood pressure diastolic 60 mm Hg 025 Heart Rate 65 /min 02/26/2025 Height 62 in 02/26/2025 Weight 264 lbs 02/26/2025 BMI 48.28 kg/m2 02/26/2025 Encounters Encounter Location Date Provider Diagnosis [facility] [address] [place] [id number] 02/26/2025 Sanjiv Everett Pre-op exam Z01.818 ; Pain in left knee M25.562 ; Arthritis of left knee M17.12 and Peripheral edema R60.0 Assessments Encounter Date Diagnosis (ICD Code) Assessment Notes Treatment Notes Treatment Clinical Notes Section Notes 02/26/2025 Pre-op exam (ICD-10 - Z01.818) 02/26/2025 Pain in left knee (ICD-10 - M25.562) 02/26/2025 Arthritis of left knee (ICD-10 - M17.12) 02/26/2025 Peripheral edema (ICD-10 - R60.0) Plan Of Treatment Pending Test Test Name Order Date Urinalysis - Inhouse 02/26/2025 EKG 02/26/2025 CXR 02/26/2025 CBC Venipuncture (in house) 02/26/2025 Glycohemoglobin A1c (in house) P-Basic Metabolic Panel (BMP) 02/26/2025 P-TSH reflex to FT4 02/26/2025 Next Appt Details Follow Up: via phone to repo rt test results, Reason: Provider Name:Sanjiv Khan ry, 04/28/2025 05:30:00 PM, [address], [place], [phone], Progress Notes * Shon HERNANDEZOB:1970 ( 54 yo F)Acc No.[id number]:02/26/2025 Physical Patient: Eleonora MONSALVE Provider: Callie Everett M.D. :1970 A ge:54 Y S ex:Female Date:02/26/2025 Address:[address] [place] [address] [place], [id number] Subjective: * Chief Complaints: * 1 . Preop cpx. * HPI: A dult Pre-Op physical: 54 year old female presents with c/o Procedure: T otal Knee Replacement, LT. c/o Date of Procedure: 0 03/06/2025. c/o Name of Surgeon: Desi Hanks. * Medical History: T ongue Cancer, Allergic Rhinitis, Hypothyroidism, Esophageal Reflux, Plantar Fasciitis, Bilateral Mucosal Thickening of Maxillary Sinuses 08/2009, Scheuermann's Kyphosi Repair, Back Pain, Mammogram 03/2021, Pap 07/2019, COVID 19, Pfizer, Sep-Oct 2020, COVID-19 Illness, 09/21/2021, DEXA 11/2021, Fibromyalgia, Pulmonary Embolism, January 2024. * Surgical History: L T Ovary Removal 2005, Turbinectomy 2004, Partial Hysterectomy 1995, Tubal Ligation 1992, Tonsillectomy 1973, RT Shoulder 12/09/14, L3-L5 Spinal Fusion 02/22/2016, Tongue Biopsy 10/04/2016, Breast Reduction 01/27/2017, Tongue Carcinoma, Partial Glossectomy and Neck Node Dissection 2016, Neck Needle Biopsy, [facility], Negative 12/15/2017, Colonoscopy, Negative, Dr. Kaba, recommended 10yr f/u 03/20/2018, Vein Ablasion 05/03/2019, RT Shoulder Replacment 06/01/2020, Cervical Spine Diskectomies and Fusion C3, C4, C5, C6 08/19/2021, Right Great Toe Bunion Surgery - Dr. Joseph 08/08/2022, Fusion C4-7, left side foramenectomy C6-7 C7-T1 11/13/2023. * Hospitalization/Major Diagno stic Procedure: S [facility]avia Surgery for Scheurmann's Syndrome 02/06/2008, [facility] 02/22/2016, RT Shoulder Replacement 06/01/2020, Allergic Reaction- [facility] 11/21/2023. * Family History: F ather: alive. M other: alive. P aternal Grand Father: hypertension. P aternal Grand Mother: hypertension. M aternal Grand Mother: diabetes. 1 brother(s) , 1 sister(s) - healthy. 1 son(s) , 1 daughter(s) - healthy. . * Social History: C URRENT TOBACCO USE: No . C affeine: yes, frequency:. Marital Status: . [...] EVERY DAY FOR 90 DAYS , Taking Xyzal Allergy 24HR 5 MG [...] WITH FOOD FOR 90 DAYS , Taking Methocarbamol 750 MG Tablet 1 tablet Orally every 12 hrs as needed , Taking Furosemide 20 MG Tablet TAKE 1 TABLET BY MOUTH EVERY DAY FOR 30 DAYS , Taking Pregabalin 75 MG Capsule 1 capsule Orally Three times a day , Medication List reviewed and reconciled with the patient * Allergies: C ephalosporins: Diarrhea - Side Effects, oxyCODONE: hives - Allergy, HYDROcodone-Acetaminophen: itching. Objective: * Vitals: W t: 264, Temp: 97.9, BP: 100/60, HR: 65, Nurse: aileen/cody, Ht: 62, BMI:48.28. * Examination: G eneral Examination: General Appearance: N AD. H eart: R SR. L ungs:?clear to auscultation. P eripheral pulses: n ormal (2+) bilaterally. E xtremities:?1+ right leg edema. Trace left leg edema. Assessment: * Assessment: 1. P re-op exam - Z01.818 (Primary) 2 . P ain in left knee - M25.562 ? 3 . A rthritis of left knee - M17.12 4 . P eripheral edema - R60.0? Plan: * Treatment: Value Reference Range B UN 20 6-20 - mg/dL * C alcium 9.2 8.6-10.4 - mg/dL * C hloride 104 97-108 - mmol/L * C O2 26 20-32 - mmol/L * C reatinine 0.71 0.50-1.00 - mg/dL * G lucose 94 65-99 - mg/dL * P otassium 4.3 3.5-5.3 - mmol/L * S odium 142 135-145 - mmol/L * e GFR by Creatinine 100 >59 - mL/min/1.73m2 ?LAB: Urinalysis - Inhouse (Collection Date & Time - 02/26/2025)* Value Reference Range C olor/Clarity yellow/clear * L euk Neg * N itrite Neg * U robili 3.2 * P rotein Neg * p H 5.5 * B lood 1+ * S p. Gr. 1.101 * K etone Neg * B sid Neg * G berna Neg * Josie Hernandez 02/26/2025 11:10: 23 AM EDT > ?LAB: CBC Venipuncture (in house) (Collection Date & Time - 02/26/2025)* Value Reference Range w bc 7.6 3.5 - 10 * l ymph 31.6% 15 - 50 * m id 7.5% 2 - 15 * g ran 60.9% 35 - 80 * r bc 4.85 3.5 - 5.5 * h gb 14.5 11.5 - 16.5 * h ct 43.8 35 - 55 * m cv 90.3 75 - 100 * m ch 29.9 25 - 35 * m chc 33.1 31 - 38 * p latlet 360 100 - 400 * Josie Hernandez 02/26/2025 12:30: 49 PM EDT > ?LAB: Glycohemoglobin A1c (in house) (Collection Date & Time - 02/26/2025)* Value Reference Range g lycohemoglobin 5.2% 5 - 6.5 % * Josie Hernandez 02/26/2025 12:31: 28 PM EDT > ?Imaging: EKG ?Imaging: CXR2.?Peripheral edema?LAB: P-Basic Metabolic Panel (BMP) (Collection Date & Time - 02/26/2025 10:11 AM)* Value Reference Range B UN 20 6-20 - mg/dL * C alcium 9.2 8.6-10.4 - mg/dL * C hloride 104 97-108 - mmol/L * C O2 26 20-32 - mmol/L * C reatinine 0.71 0.50-1.00 - mg/dL * G lucose 94 65-99 - mg/dL * P otassium 4.3 3.5-5.3 - mmol/L * S odium 142 135-145 - mmol/L * e GFR by Creatinine 100 >59 - mL/min/1.73m2 ?LAB: P-TSH reflex to FT4 (Collection Date & Time - 02/26/2025 10:11 AM)* Value Reference Range T SH reflex to FT4 1.50 0.43-5.25 - mU/L * Procedure Codes: 8 1002 Urinalysis, no micro, [address] CBC WITH AUTO DIFF, 75792 GLYCATED HEMOGLOBIN TEST, Modifiers: QW * Follow Up: v ia phone to report test results * Images: Billing Information: * Visit Code: 43825 Office Visit, Est Pt., Level 4. * Procedure Codes: 18819 Urinalysis, no micro. 51426 CBC WITH AUTO DIFF. 92023 GLYCATED HEMOGLOBIN TEST. Modifiers: QW * Electronic signature of Sweta Everett MD on 02/27/2025 at 03:41 PM EDT Sign off status: Pending * Provider: Callie Everett M.D. Date: 0 02/26/2025 Generated for Kayla padilla/Garrison/eTransmitting on: 0 02/27/2025 03:41 PM EDT History and Physical Notes * HPI (History of Present Illness) Category Sub-Category Detail Notes Category Not es Adult Pre-Op physical Procedure: Total Knee Replacem ent, LT Date of Procedure: 03/06/2025 Name of Surgeon: Dr. Hanks Examination Category Sub-Category Detail Notes Category Not es General Examination Heart: RSR Lungs: clear to auscultatio n Extremities: 1+ right leg edema. Trace left leg edema General Appearance: NAD Peripheral pulses: normal (2+) bilatera lly
--- OUTSIDE RECORDS SUMMARY | 2025-02-27 09:59 | XMS_ITS ---
Author Organization [facility] Address [address] [place] [id number] Care Team Providers Care Main Galley Scullion Name Role Phone Sanjiv Everett Primary Care Provider [phone] Leyla Deutsch Unavailable [phone] REASON FOR VISIT Test results Encounters Encounter Location Date Provider Diagnosis [facility] [address] [facility] [address] [facility] [address] [place] [id number] 02/27/2025 Sanjiv Everett Preop examination Z01.818 and Abnormal EKG R94.31 Assessments Encounter Date Diagnosis (ICD Code) Assessment Notes Treatment Notes Treatment Clinical Notes Section Notes 02/27/2025 Preop examination (ICD-10 - Z01.818) 02/27/2025 Abnormal EKG (ICD-10 - R94.31) Plan Of Treatment Pending Test Test Name Order Date EKG 02/27/2025 Next Appt Details Provider Name:Sanjiv Khan ry, 04/28/2025 05:30:00 PM, [address] [facility] [address] [facility], [address], [place], [id number], Progress Notes * Shon HERNANDEZOB:1970 ( 54 yo F)Acc No.[id number]:02/27/2025 Patient: Eleonora MONSALVE :1970 A ge:54 Y S ex:Female Address:[address] [place] [address] Subjective: * Chief Complaints: * T est results * Medical History: * Surgical History: * Hospitalization/Major Diagno stic Procedure: * Medications: Objective: * Vitals: * Physical Examination: Assessment: * Assessment: 1. P reop examination - Z01.818 (Primary) 2 . A bnormal EKG - R94.31 ? Plan: * Treatment: 2. A bnormal EKG I maging: EKG * Procedure Codes: * true * Date: Generated for Kayla padilla/Garrison/Paulsmitting on: 0 02/27/2025 03:41 PM EDT
--- OUTSIDE RECORDS SUMMARY | 2025-02-27 15:42 | XMS_ITS | Clinical Summary ---
Author Organization Healthcare Address [address] [place] [address] Care Team Providers Care Director Phone Name Role Phone Jay Jay Deutsch MD Primary Care Provider [phone] Celine Molina DIRECTOR INDUSTRIAL RELATIONS Unavailable [phone] Allergies Active Allergy Reactions Criticality Noted Date [...] (07/06/2021): Added automatically from request for surgery [id number] Edema of right lower extremity 02/08/2019 Venous [...] [facility]-Cervical Cancer Screening 12/15/2022 [facility]-HPV/Cotest 12/15/2022 12/15/2017 [id number] Vaccine ( - season) 2024 10/21/2020, 09/24/2020 [...] Narrative SUNQUEST - 12/18/2017 2:58 PM EDT [facility] MR #: [id number] [facility] [place] [address] 1970 (Age: 47) FW Collect Date: 12/15/2017 00:00 Receipt Date: 12/15/2017 16:02 Page 1 DEPARTMENT OF PATHOLOGY AND LABORATORY MEDICINE CYTOPATHOLOGY REPORT Email: [email or web address] [phone] ATTENDING MD/Practitioner: Benny Rodriguez M.D. Service: OMS [...] neoplasm of organs and systems F: A; 04536 ASP INTER, 13992, 88416, 48352, 41628 B; 52522 ASP INTER, 95198, 15516, 73526, 25648 SNOMED CODES: A; K92485 P1149 Z75929 [id number] B; H40978 P1149 L53022 [id number] A resident has participated in this service. A pathologist has performed and is responsible for the reported pathologic evaluation. us Priscila Rodriguez MD LAB PATHOLOGY ORDERABLES Final R esult SUNQUEST from Last 3 Months or Most Recently Relevant to Health Maintenance Insurance [employer] ANTHEM Care Teams Director Phone Relationship Specialty Start Date End Date Jay Jay Deutsch MD [address] [place] [address] PCP - General 01/15/21 Celine Molina, JAZZ [address] [facility] [address] [place] [address] Nurse Practitioner Neurosurgery 07/06/21
--- OUTSIDE RECORDS SUMMARY | 2025-02-27 15:42 | XMS_ITS | Encounter Summary ---
Author Organization [facility] Address [address] [place] [address] Care Team Providers Care Abattoir Manager Name Role Phone Jay Jay Deutsch MD Primary Care Provider [phone] Encounter Details Date Type Department Care Team (Late st Contact Info) Description 02/21/2025 Orders Only [facility] [address] [place] [address] Jay Jay Hanks MD [address] [place] [address] Primary osteoarthritis of left knee (Primary Dx) [...] Info) Description 03/05/2025 6:45 AM EDT Appointment [place] [address] [place] [address] 03/05/2025 8:15 AM EDT Clinical Support [facility] [address] [place] [address] 03/06/2025 10:35 AM EDT Hospital En[facility] [address] [place] [address] Jay Jay Hanks MD [address] [place] [address] 03/06/2025 10:35 AM EDT Anesthesia Event [place] [address] Michelet Cheema MD [address] [facility] [place] [address] 03/06/2025 10:35 AM EDT - 03/06/2025 11:50 AM EDT Surgery [place] [address] Jay Jay Hanks MD [address] [place] [address] TOTAL KNEE REPLACEMENT ROBOTIC ASSISTED-MIRIAM 03/13/2025 12:00 PM EDT Office Visit [facility] [address] [place] [address] Stan Mcmahon, PHILLIP 03/19/2025 9:15 AM EDT Office Visit [facility] [address] [place] [address] Brandi Wyman APRN [address] [place] [address] Scheduled Orders Name Type Priority Associated Diagnoses [...] leg documented in this encounter Care Teams Abattoir Manager Relationship Specialty Start Date End Date Jay Jay Deutsch MD [address] [place] [address] [place] [address] PCP - General 05/31/11 documented as of this encounter
--- OUTSIDE RECORDS SUMMARY | 2025-02-27 15:42 | XMS_ITS | Encounter Summary ---
Author Organization [facility] Address [address] [place] [address] Care Team Providers Care Structural Engineering Drafting Officer Name Role Phone Jay Jay Deutsch MD Primary Care Provider [phone] Encounter Details Date Type Department Care Team (Late st Contact Info) Description 02/20/2025 Telephone [facility] [place] [address] [place] [phone] Jay Jay Hanks MD [address] [place] [address] Social History Tobacco Use Types Packs/Day Years [...] encounter Miscellaneous Notes * Telephone Encounter - Ml Tompkins - 02/27/2025 1:59 PM EDT patient called to reschedule for Monday 03/05 @ 8:15 @ [facility] * Telephone Encounter - Mikayla Ordaz, Product Safety Lead - 02/25/2025 10:19 AM EDT Spoke with patient, she requested to reschedule her appointment to 02/27/[address] [facility] office following her CT scan. Fitting is [...] prior to surgery. Will send consents via [facility]. Pt will need a walker. Please reach [...] SCHEDULE SX * Telephone Encounter - Olesya Thompson, Clerical Staff - 02/20/2025 12:01 PM EDTSummary: PHONE CALL PT WOULD LIKE A CALL BACK TO GO OVER THINGS FOR HER UPCOMING SX PLEASE ADVISE documented in this encounter Plan of Treatment Upcoming Encounters Date Type Department Care Team (Late st Contact Info) Description 03/05/2025 6:45 AM EDT Appointment [facility] [place] [address] [place] [address] 03/05/2025 8:15 AM EDT Clinical Support [facility] [address] [place] [address] 03/06/2025 10:35 AM EDT Hospital En[facility] [address] [place] [address] Jay Jay Hanks MD [address] [place] [address] 03/06/2025 10:35 AM EDT Anesthesia Event [facility] [place] [id number] Michelet Cheema MD [address] [facility] [place] [address] 03/06/2025 10:35 AM EDT - 03/06/2025 11:50 AM EDT [facility] [address] [place] [address] Jay Jay Hanks MD [address] [place] [address] TOTAL KNEE REPLACEMENT ROBOTIC ASSISTED-MIRIAM 03/13/2025 12:00 PM EDT Office Visit [facility] [address] [facility] [address] [place] [address] Stan Mcmahon PT 03/19/2025 9:15 AM EDT Office Visit [facility] [address] [place] [address] Brandi Wyman, JAZZ [address] [place] [address] Scheduled Procedures Name Priority Associated Diagnoses Date/Ti me TOTAL KNEE REPLACEMENT ROBOTIC ASSISTED-MIRIAM Primary osteoarthritis of left knee 03/06/2025 10:35 AM EDT documented as of this encounter Visit Diagnoses Not on filedocumented in this encounter Care Teams Structural Engineering Drafting Officer Relationship Specialty Start Date End Date Jay Jay Deutsch MD [facility] [address] [place] [address] PCP - General 05/31/11 documented as of this encounter
--- OUTSIDE RECORDS SUMMARY | 2025-02-27 15:42 | XMS_ITS | Encounter Summary ---
Author Organization [facility] Address [address] [place] [address] Care Team Providers Care Steward/Stewardess Lounge Name Role Phone Jay Jay Deutsch MD Primary Care Provider [phone] Encounter Details Date Type Department Care Team (Late Contact Info) Description 02/12/20[place] [address] Gumaro Myles MD [address] [place] [address] Social History Tobacco Use Types Packs/Day Years [...] Info) Description 03/05/2025 6:45 AM EDT Appointment [facility] [address] [place] [address] 03/05/2025 8:15 AM EDT Clinical Support [facility] [address] [place] [address] 03/06/2025 10:35 AM EDT Hospital En[facility] [address] [place] [address] Jay Jay Hanks MD [address] [place] [address] 03/06/2025 10:35 AM EDT Anesthesia [place] [address] Michelet Cheema MD [address] [facility] [address] [facility] [place] [address] 03/06/2025 10:35 AM EDT - 03/06/2025 11:50 AM EDT [facility] [address] [place] [address] Jay Jay Hanks MD [address] [place] [address] TOTAL KNEE REPLACEMENT ROBOTIC ASSISTED-MIRIAM 03/13/2025 12:00 PM EDT Office Visit [facility] [address] [facility] [address] [place] [address] Stan Mcmahon PT 03/19/2025 9:15 AM EDT Office Visit [facility] [address] [facility] [address] [place] [address] Brandi Wyman APRN [address] [place] [address] Scheduled Procedures Name Priority Associated Diagnoses Date/Ti nj TOTAL KNEE REPLACEMENT ROBOTIC ASSISTED-MIRIAM Primary osteoarthritis of left knee 03/06/2025 10:35 AM EDT documented as of this encounter Visit Diagnoses Not on filedocumented in this encounter Care Teams Steward/Stewardess Lounge Relationship Specialty Start Date End Date Jay Jay Deutsch MD [address] [facility] [address] [place] [address] PCP - General 05/31/11 documented as of this encounter
--- OUTSIDE RECORDS SUMMARY | 2025-02-27 15:42 | XMS_ITS | Clinical Summary ---
Author Organization [facility] Address [address] [facility] [address] [place] [address] Phone Care Team Providers Care Health And Safety Trainer Name Role Phone Jassi Gaona MA Unavailable [phone] Conditions or Problems No information available. Medications No information available. Medications Administered No information available. Allergies, Adverse Reactions, Alerts No information available. Results No information available. Plan of Care No information available. Procedures No information available. Vital Signs No information available. Immunizations No information available. Advance Directives No information available.
--- OUTSIDE RECORDS SUMMARY | 2025-02-27 15:42 | XMS_ITS | Encounter Summary ---
Author Organization [facility] [place] [address] Care Team Providers Care Supervisor Stage Carpentry Name Role Phone Jay Jay Deutsch MD Primary Care Provider [phone] Encounter Details Date Type Department Care Team [...] Info) Description 03/05/2025 6:45 AM EDT Appointment [place] [address] [place] [address] 03/05/2025 8:15 AM EDT Clinical Support [facility] [address] [place] [address] 03/06/2025 10:35 AM EDT Hospital Encounter [facility] [address] [place] [address] Jay Jay Hanks MD [address] [place] [address] 03/06/2025 10:35 AM EDT Anesthesia Event [facility] [address] [place] [address] Michelet Cheema MD [address] [facility] [place] [address] 03/06/2025 10:35 AM EDT - 03/06/2025 11:50 AM EDT Surgery [facility] [address] [address] Jay Jay Hanks MD [address] [place] [address] TOTAL KNEE REPLACEMENT ROBOTIC ASSISTED-[facility] 03/13/2025 12:00 PM EDT Office Visit [facility] [address] [place] [address] Stan Mcmahon, PT 03/19/2025 9:15 AM EDT Office Visit [facility] [address] [place] [address] Brandi Wyman APRN [address] [place] [address] Scheduled Procedures Name Priority Associated Diagnoses Date/Ti me TOTAL KNEE REPLACEMENT ROBOTIC ASSISTED-[facility] Primary osteoarthritis of left knee 03/06/2025 10:35 AM EDT documented as of this encounter Visit Diagnoses Not on filedocumented in this encounter Care Teams Supervisor Stage Carpentry Relationship Specialty Start Date End Date Jay Jay Deutsch MD [address] [facility] [address] [place] [phone] PCP - General 05/31/11 documented as of this encounter
--- OUTSIDE RECORDS SUMMARY | 2025-02-27 15:42 | XMS_ITS | Data Portability ---
Author Organization [facility] Address [address] [facility] [facility] [place] [address] Care Team Providers Care Developmental Mathematics Professor Name Role Phone DARYL CAMEJO Referring Provider SMITA RHODES Primary Care Provider JEFF COOPER Kraft Mill Operator Assessment No assessment recorded. Plan of Treatment Reminders Order Date Submit Date Provider Last Modified By Organization Details Last Modified Time Details Appointments None recorded. Lab None recorded. Referral None recorded. Procedures None recorded. Surgeries None recorded. Imaging None recorded. Medication Orders mupirocin 2 % topical ointment 2023 024 dave [facility] #[id number], [facility] [place], [address], 4 16:34:33 doxycycline hyclate 100 mg capsule 2023 025 [id number], [address] [place], [address], 5 14:10:48 TobraDex 0.3 %-0.1 % eye drops,suspe nsion 2023 025 [facility] [address] [facility] [place], [address], 5 14:11:51 Patient TargetsNo targets recorded. Patient Instructions Encounter Date Encounter Id Patient Instructions Last Modified By Organization Details Last Modified Time 06/28/2023 [id number] 1. Left Tympanos lazaro tube placement performed. [...] months [email or web address] Not available 06/28/2023 15:29:46 02/02/2024 [id number] 1. Begin new RX- Tobradex 4 drops in the left ear BID this should help reduce some of the granulation tissue in the drainage. If it does not clear this up the tube may need to be removed. 2. F/u in 2-4 weeks dave Not available 02/02/2024 17:10:20 02/16/2024 [id number] 1. Utilize Tobra dex at onset of ear infections or otorrhea 2. F/u in 6 months [email or web address] Not available 02/16/2024 15:20:58 08/23/2024 [id number] 1. Left cerumenectomy performed in office today. [...] visit. dave Not available 08/23/2024 16:28:06 11/27/2024 [id number] 1. Left ear tube removal from EAC [...] Removal Foreign Body; Ear completed Cynthia Gallegos [facility] 11/27/2024 14:59:00 08/23/20 24 Cerumen removal - Instruments, Unilateral completed Godfrey Strauss [facility] 08/23/2024 15:05:26 06/28/20 23 Tympanostomy w/Tube, local completed Chey Quinoneson [facility] 06/28/2023 15:28:00 02/18/20 23 Cerumen removal - Instruments, Unilateral completed WALDEMAR POOLE III, MD [address] [place] [address], [phone], [facility] 02/17/2023 16:37:22 06/28/20 22 Tympanostomy w/Tube, local completed WALDEMAR POOLE III, MD [address] [place] [address], [phone], [facility] 06/28/2022 15:07:16 06/28/20 22 myringotomy and insertion of tympanic ventilation tube completed Priscilla Simpson [facility] 06/28/2022 12:00:55 10/13/19 22 Tympanogram completed ELIZABETH HARDIN, [facility] [address] [place] [address], [phone] [place] [address] 10/13/2021 16:19:27 10/13/19 22 Audiogram completed ELIZABETH HARDIN CCC-A [address] [place] [address], [phone] [place] [address] 10/13/2021 16:19:26 cervical biopsy completed Vidal Arroyo [facility] 10/13/2021 15:32:41 lumbar spinal fusion completed Vidal Arroyo [facility] 10/13/2021 15:33:17 hysterectomy completed Vidal Arroyo [facility] 10/13/2021 15:33:28 manipulation of displaced nasal septum completed Vidal Arroyo [facility] 10/13/2021 15:33:50 total shoulder replacement completed Vidal Arroyo [facility] 10/13/2021 15:34:10 Orthopedic Surgery completed Mary Margaret [facility] 02/17/2023 16:03:41 partial glossectomy completed Priscilla Simpson [facility] 02/17/2023 16:26:20 Imaging Results None recorded. Procedure Notes None recorded. Medical Equipment None Reported. Allergies Allergen ID Allergen Name Allergen Category Reaction Reaction Severity Criticality Documentation Date Start Date Code Code System Note Provider Name and Address Organization Details Recorded Time 473917 amoxicill in medicatio n Not available Not available Not available 10/13/2021 723 RxNorm Vidal Arroyo [facility] 15:27:57 182616 Substance with morphinan structure and opioid receptor agonist mechanism of action (substanc e) medicatio n Not available Not available Not available 10/13/2021 31050 9000 SNOMED Vidal Arroyo [facility] 15:29:59 Medications Name Sig Start Date Stop [...] Updated DateTime 5 157.48 cm 46 kg/m2 844565. 48 g 98.2 [degF] 80 /min 123 mm[Hg] 66 mm[Hg] Cinthya Clemens [facility] 5 14:10:01 Date Recorded Body height Body mass index (BMI) Body weight Body temperature Heart rate Systolic blood pressure Diastolic blood pressure Provider Name and Address Organization Details Last Updated DateTime 4 157.48 cm 45.2 kg/m2 255771. 42 g 97.5 [degF] 70 /min 108 mm[Hg] 74 mm[Hg] Elisabeth Noel [facility] 4 16:05:35 Date Recorded Body height Body temperature Body mass index (BMI) Body weight Heart rate Systolic blood pressure Diastolic blood pressure Provider Name and Address Organization Details Last Updated DateTime 4 157.48 cm 97.7 [degF] 45.3 kg/m2 868989. 12 g 68 /min 131 mm[Hg] 75 mm[Hg] Poly Covarrubias [facility] 4 14:40:30 Date Recorded Body height Body mass index (BMI) Body weight Body temperature Heart rate Systolic blood pressure Diastolic blood pressure Provider Name and Address Organization Details Last Updated DateTime 3 157.48 cm 39 kg/m2 96436.9 7 g 97.2 [degF] 64 /min 124 mm[Hg] 68 mm[Hg] Heidi Almonte [facility] 3 15:08:07 Date Recorded Body height Body mass index (BMI) Body weight Body temperature Heart rate Systolic blood pressure Diastolic blood pressure Provider Name and Address Organization Details Last Updated DateTime 4 157.48 cm 46.5 kg/m2 877621. 46 g 97.3 [degF] 89 /min 130 mm[Hg] 78 mm[Hg] Priya Sun [facility] 4 14:30:07 Social History None recorded. Functional Status Question Answer Note LastModified by Organization D etails LastModified Time What is your level of alcohol consumption? None [email or web address] Information not available 10/13/2021 Mental Status None recorded. Family History Relationship Description Onset Age of this Age Resolved Age Notes LastModified by Organization Details LastModified Time Mother Disorder of thyroid gland Not available 10/13 15:34:45 Brother Asthma [email or web address] Not availabl e 10/13/2021 15:34:56 Medical History [...] Pain N Stomach trouble N Heart Attack (DE) N Ulcers N Diabetes N Rheumatic Fever [...] SNOMED-CT Code Diagnosis ICD10 Code Diagnosis Note [id number] MD STEPHANY LLAMAS III [facility] [place] [address] 10/13/2021 15:18:02 10/21/2021 15:07:50 Obstructive sleep apnea of adult 6846894720 103 G47.33 History of malignant neoplasm of tongue 931760085 Z85.810 No sign of recurrence Dysfunctio n of bilateral eustachian tubes 2188952709 162689 H69.93 Hearing examination 3981 06985 Z01.10 Allergic rhinitis 124568 04 J30.9 Chronic re current sinusitis 325534633 J32.9 [id number] FELIPE PEACE, ELIZABETH, CCC-A [place] [facility] [address] [place] [address] 10/13/2021 16:19:07 10/13/2021 16:20:05 Abnormal auditory perception 76440042 H93.293 [id number] MD STEPHANY LLAMAS III ENT [facility] [address] [address] 06/07/2022 15:17:51 06/07/2022 16:22:06 Dysfunction of bilateral eustachian tubes 2855972123 713878 H69.93 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 6057176989 321357 H65.93 Allergic rhinitis 213030 04 J30.9 History of malignant neoplasm of tongue 444526916 Z85.810 No sign of recurrence History of cervical spine fusion 4912266026 101 Z98.1 [id number] MD STEPHANY LLAMAS III ENT [address] [place] [address] 06/28/2022 10:55:57 06/28/2022 15:27:39 Dysfunction of bilateral eustachian tubes 4577077395 317189 H69.93 -Bilateral Paparella tube placement performed in office today ( 2) Allergic rhinitis 776540 04 J30.9 History of malignant neoplasm of tongue 944796705 Z85.810 -No sign of recurrence ( 2)-No sign of recurrence ( 2) History of cervical spine fusion 0442312834 101 Z98.1 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 3134241228 532938 H65.93 Bilateral Paparella tube placement in office today ( 2) [id number] MD STEPHANY LLAMAS III ENT [address] [place] [address] 08/31/2022 10:27:23 08/31/2022 13:32:54 Dysfunction of bilateral eustachian tubes 6551003193 244041 H69.93 -Bilateral Paparella tube placement performed in office today ( 2) History of malignant neoplasm of tongue 744165841 Z85.810 -No sign of recurrence [id number] MD STEPHANY LLAMAS III ENT [address] [place] [address] 02/17/2023 15:39:57 02/20/2023 07:46:20 Dysfunction of bilateral eustachian tubes 2355964729 203661 H69.93 -Bilateral Paparella tube placement performed in office today ( 2) History of malignant neoplasm of tongue 456664351 Z85.810 -No sign of recurrence Impacted c erumen in right ear 5212865737 098773 H61.21 [id number] MD STEPHANY LLAMAS III ENT [address] [place] [address] 06/14/2023 15:17:19 08/24/2023 04:43:32 Dysfunction of bilateral eustachian tubes 3221760751 146699 H69.93 History of malignant neoplasm of tongue 315885139 Z85.810 -No sign of recurrence [id number] MD STEPHANY LLAMAS III ENT [address] [facility] [address] [place] [address] 06/28/2023 14:55:12 07/03/2023 17:02:00 Dysfunction of bilateral eustachian tubes 6007662580 975159 H69.93 06/28/22- In-office bilateral Tympanosto my tube placement (Paparella ) 06/28/23- In-Office left tympanosto my tube placement (Duravent) Ear pressu re sensation 390845600 H93.8X2 - left Cough 94023222 R05.9 Clearing t hroat - hawking 395054192 R05.9 History of malignant neoplasm of tongue 707991094 Z85.810 -No sign of recurrence Dysphagia 44567176 R13.1 0 [id number] MD STEPHANY LLAMAS III ENT [address] [place] [address] 02/02/2024 15:37:19 02/02/2024 16:36:36 Dysfunction of bilateral eustachian tubes 1530634103 264996 H69.93 06/28/22- In-office bilateral Tympanosto my tube placement (Paparella )06/28/23- In-Office left tympanosto my tube placement (Duravent) 02/02/24- left ear tube present with granulatio ns. Begin Tobradex Ear pressu re sensation 782831389 H93.8X2 - left Cough 76304498 R05.9 Clearing t hroat - hawking 788436158 R05.9 Dysphagia 93839881 R13.1 0 History of malignant neoplasm of tongue 461432151 Z85.810 -No sign of recurrence Pulmonary embolism 45053 003 I26.99 Granulatio ns on tympanic membrane 484964229 H73.899 [id number] MD STEPHANY LLAMAS III RD [address] [place] [address] 02/16/2024 14:30:22 02/16/2024 16:30:21 Dysfunction of bilateral eustachian tubes 3705559336 661629 H69.93 06/28/22- In-office bilateral Tympanosto my tube placement (Paparella )06/28/23- In-Office left tympanosto my tube placement (Duravent) 02/02/24- left ear tube present with granulatio ns. Begin Tobradex- Left ear tube healed without granulatio ns Granulatio ns on tympanic membrane 736838848 H73.899 Pulmonary embolism 28733 003 I26.99 Ear pressu re sensation 882600183 H93.8X2 - left Cough 22066707 R05.9 Clearing t hroat - hawking 027942802 R05.9 Dysphagia 17023275 R13.1 0 History of malignant neoplasm of tongue 590014028 Z85.810 -No sign of recurrence 02/16/24- tongue deviated to the left due to treatment of [id number] MD STEPHANY LLAMAS III ENT [address] [place] [address] 08/23/2024 14:18:36 08/23/2024 16:02:59 Dysfunction of bilateral eustachian tubes 9722808769 914111 H69.93 06/28/22- In-office bilateral Tympanosto my tube placement (Paparella )06/28/23- In-Office left tympanosto my tube placement (Duravent) 02/02/24- left ear tube present with granulatio ns. Begin Tobradex- Left ear tube healed without granulatio ns110/24/23 - Left ear tube occluded with cerumen Pulmonary embolism 53182 003 I26.99 - hx of Dysphagia 01295339 R13.1 0 - hx of History of malignant neoplasm of tongue 615924361 Z85.810 -No sign of recurrence 02/16/24- tongue deviated to the left due to treatment of Nasal vestibulitis 74883 000 J34.89 Acute sinusitis 31113255 J01.90 [id number] MD STEPHANY LLAMAS III ENT [address] [place] [address] 11/27/2024 13:55:02 12/01/2024 07:35:20 Dysfunction of bilateral eustachian tubes 9077467532 281947 H69.93 06/28/22- In-office bilateral Tympanosto my tube placement (Paparella )06/28/23- In-Office left tympanosto my tube placement (Duravent) x202/02/24- left ear tube present with granulatio ns. Begin Tobradex- Left ear tube healed without granulatio ns110/24/23 - Left ear tube occluded with cerumen3/2 02/26- left ear tube removal performed in office Pulmonary embolism 15348 003 I26.99 - hx of Dysphagia 75449981 R13.1 0 - hx of History of malignant neoplasm of tongue 666227237 Z85.810 -No sign of recurrence 02/16/24- tongue deviated to the left due to treatment on cancer treatment Nasal vestibulitis 42147 000 J34.89 Granulatio ns on tympanic membrane 182477468 H73.899 Health Concerns Section Related Observation LastModified by Organization Detai ls LastModified Time None Recorded Concern Status LastModified by Organization Details LastModified Time None Recorded Advance Directives Directive None Recorded Payers Insurance Date Sequence Insurance Name Policy Number Policy Adamson Covered Member ID Adamson Member ID Guarantor Name 11/26/2024 1 [employer] [id number] Eleonora Hernandez [id number] Eleonora Hernandez 02/02/2024 1 [place] [id number] Eleonora Hernandez [id number] Eleonora Hernandez Notes Date Note Type [...] Cooper years ago. WALDEMAR POOLE III, MD [address] [place] [address], [phone], [facility] 06/28/2023 15:57:31 02/02/2024 text/html Eleonora presents in office today to follow up on left ear tube, performed in office 06/28/23. 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 She has been having left otorrhea. Her ear was cultured and she was placed on ear drops. WALDEMAR POOLE III, MD [address] [place] [address], [phone], [facility] 02/02/2024 17:10:36 02/16/2024 text/html Eleonora presents in office today to follow up on left ear tube, performed on 06/28/23. The pt was last noted to have left granulation tissue. Ear drops did help her granulations and she denies recent otorrhea. WALDEMAR POOLE III, MD [address] [place] [address], [phone], [facility] 02/16/2024 15:22:48 08/23/2024 text/html Eleonora Hernandez (54F [...] with cephalosporin use WALDEMAR POOLE III, MD [address] [place] [address], [phone], [facility] 08/23/2024 16:31:06 11/27/2024 text/html Eleonora presents in office today to follow up on left ear fullness sensation. 08/2024 she was last noted to have an occluded left ear tube (performed 06/28/23.) She did present to HOPPER OPERATOR at PCP office who was not able to view the ear tube. She denies otalgia or soreness. Her right ear seems to be normal curently. WALDEMAR POOLE III, MD [address] [place] [address] [place], [address], [facility] 11/27/2024 15:25:46 OBGyn Episode No OBEpisode recorded.
--- OUTSIDE RECORDS SUMMARY | 2025-02-27 15:42 | XMS_ITS | Encounter Summary ---
Author Organization [facility] P Address [facility] [place] [address] Phone Care Team Providers Care Neighborhood Conservation Officer Name Role Phone Get NORRIS MD, Leyla Herndon Primary Care Provider + Reason for Visit * Reason Onset Date Comments Refill Request 08/31/2023 Encounter Details Date Type Department Care Team (Late st Contact Info) Description 08/31/2023 Refill [facility] [address] [place] [address] Estrella Ann MD [address] [place] [address] Primary hypothyroidism; Family history of [...] 3 Patient comment: Need to change to [facility] Evette and I can't find where to change pharmacy info. [address] [place] [address] documented in this encounter Plan of Treatment Upcoming Encounters Date Type Department Care Team (Late st Contact Info) Description 07/30/2025 12:00 PM EST Office Visit [facility] [address] [place] [address] Estrella Ann MD [address] [place] [address] documented as of this encounter Visit Diagnoses Diagnosis Primary hypothyroidism Unspecified hypothyroidism Family history of diabetes mellitus (DM) Family history of diabetes mellitus documented in this encounter Care Teams Neighborhood Conservation Officer Relationship Specialty Start Date End Date Leyla Deutsch MD, [address] [facility] [address] [address] PCP - General 04/29/08 documented as of this encounter
--- OUTSIDE RECORDS SUMMARY | 2025-02-27 15:42 | XMS_ITS | Encounter Summary ---
Author Organization [facility] Address [address] [place] [address] Care Team Providers Care Production Control Expediter Name Role Phone Jay Jay Deutsch MD Primary Care Provider [phone] Encounter Details Date Type Department Care Team (Late st Contact Info) Description 02/21/2025 [facility] [address] [place] [address] Jay Jay Hanks MD [address] [place] [address] Social History Tobacco Use Types Packs/Day Years [...] Info) Description 03/05/2025 6:45 AM EDT Appointment [facility] [place] [address] 03/05/2025 8:15 AM EDT Clinical Support [facility] [address] [place] [address] 03/06/2025 10:35 AM EDT Hospital Encounter [facility] [address] [place] [address] Jay Jay Hanks MD [address] [place] [address] 03/06/2025 10:35 AM EDT Anesthesia Event [place] [address] Michelet Cheema MD [address] [facility] [place] [address] 03/06/2025 10:35 AM EDT - 03/06/2025 11:50 AM EDT Surgery [place] [address] Jay Jay Hanks MD [address] [place] [address] TOTAL KNEE REPLACEMENT ROBOTIC ASSISTED-MIRIAM 03/13/2025 12:00 PM EDT Office Visit [facility] [address] [place] [address] Stan Mcmahon, PT 03/19/2025 9:15 AM EDT Office Visit [facility] [address] [facility] [address] [place] [address] Brandi Wyman APRN [address] [place] [address] Scheduled Procedures Name Priority Associated Diagnoses Date/Ti me TOTAL KNEE REPLACEMENT ROBOTIC ASSISTED-MIRIAM Primary osteoarthritis of left knee 03/06/2025 10:35 AM EDT documented as of this encounter Visit Diagnoses Not on filedocumented in this encounter Care Teams Production Control Expediter Relationship Specialty Start Date End Date Jay Jay Deutsch MD [address] [facility] [address] [place] [address] PCP - General 05/31/11 documented as of this encounter
--- OUTSIDE RECORDS SUMMARY | 2025-02-27 15:42 | XMS_ITS | Referral Summary ---
Author Organization [facility] Address [address] [place] [address] Phone Care Team Providers Care Commercial Green Building Designer Name Role Phone Get NORRIS, Leyla NORRIS [...] Description 07/30/2025 12:00 PM EST Office Visit [facility] [place] [address] Estrella Ann MD [address] [place] [address] Insurance JON HOBSON ALL OTHERS NOT MEDICARE Care Teams Commercial Green Building Designer Relationship Specialty Start Date End Date Leyla Deutsch MD, [address] [address] PCP - General 04/29/08
--- OUTSIDE RECORDS SUMMARY | 2025-02-27 15:42 | XMS_ITS ---
Author Organization Unknown Medications Medication Instructions Effective Dates (start - stop) Status ciprofloxacin 3 MG/ML / dexamethasone 1 MG/ML Otic Suspension 8736-21-44H18:00:00.000+00 :00 - Completed 0.75 ML semaglutide 3.2 MG/M L Auto-Injector [Wegovy] 1549-25-62M40:00:00.000+00 :00 - Completed 0.75 ML semaglutide 3.2 MG/M L Auto-Injector [Wegovy] 9419-53-34V14:00:00.000+00 :00 - Completed 0.75 ML semaglutide 3.2 MG/M L Auto-Injector [Wegovy] 0389-53-55I89:00:00.000+00 :00 - Completed 0.75 ML semaglutide 3.2 MG/M L Auto-Injector [Wegovy] 9922-05-07E72:00:00.000+00 :00 - Completed 0.75 ML semaglutide 3.2 MG/M L Auto-Injector [Wegovy] 4241-02-13W91:00:00.000+00 :00 - Completed 0.75 ML semaglutide 3.2 MG/M L Auto-Injector [Wegovy] 9640-60-88I83:00:00.000+00 :00 - Completed 0.75 ML semaglutide 3.2 MG/M L Auto-Injector [Wegovy] 5685-07-85I10:00:00.000+00 :00 - Completed methocarbamol 750 MG Oral Tablet 2417-97-17W02:00:00.000+00 :00 - Completed methocarbamol 750 MG Oral Tablet 3628-02-96B68:00:00.000+00 :00 - Completed levothyroxine sodium 0.1 MG Oral Tablet [Synthroid] 7329-70-00Q50:00:00.000+00 :00 - Completed - 5067-92-20X27:00 :00.000+00 :00 - Completed methocarbamol 750 MG Oral Tablet 7947-47-43F50:00:00.000+00 :00 - Completed levothyroxine sodium 0.05 MG Oral Tablet [Synthroid] 4033-05-89C38:00:00.000+00 :00 - Completed duloxetine 60 MG Delayed Rel ease Oral Capsule 2265-24-47G46:00:00.000+00 :00 - Completed levofloxacin 500 MG Oral Tablet 1293-95-43L27:00:00.000+00 :00 - Completed levothyroxine sodium 0.05 MG Oral Tablet [Synthroid] 4194-61-02I33:00:00.000+00 :00 - Completed 0.75 ML semaglutide 3.2 MG/M L Auto-Injector [Kandu] 1431-63-28W82:00:00.000+00 :00 - Completed duloxetine 60 MG Delayed Rel ease Oral Capsule 4827-87-24S72:00:00.000+00 :00 - Completed methocarbamol 750 MG Oral Tablet 7610-41-03T40:00:00.000+00 :00 - Completed methocarbamol 750 MG Oral Tablet 1467-23-22A74:00:00.000+00 :00 - Completed methocarbamol 750 MG Oral Tablet 2736-00-48L78:00:00.000+00 :00 - Completed meloxicam 15 MG Oral Tablet 2022:00:00.000+00 :00 - Completed 0.75 ML semaglutide 3.2 MG/M L Auto-Injector [Kandu] 2689-17-05U32:00:00.000+00 :00 - Completed methocarbamol 750 MG Oral Tablet 9306-51-05H61:00:00.000+00 :00 - Completed 0.75 ML semaglutide 3.2 MG/M L Auto-Injector [Kandu] 8853-73-63D96:00:00.000+00 :00 - Completed doxycycline hyclate 100 MG O ral Capsule 8450-62-28M21:00:00.000+00 :00 - Completed methocarbamol 750 MG Oral Tablet 9796-75-81E40:00:00.000+00 :00 - Completed levothyroxine sodium 0.05 MG Oral Tablet [Synthroid] 3669-55-17H98:00:00.000+00 :00 - Completed methocarbamol 750 MG Oral Tablet 9579-15-48Z46:00:00.000+00 :00 - Completed meloxicam 15 MG Oral Tablet 2022:00:00.000+00 :00 - Completed meloxicam 15 MG Oral Tablet 2022:00:00.000+00 :00 - Completed meloxicam 15 MG Oral Tablet 2022:00:00.000+00 :00 - Completed fluconazole 150 MG Oral Tablet 2 398-22-25Q88:00:00.000+00 :00 - Completed hydrochlorothiazide 12.5 MG Oral Tablet 3714-47-42D89:00:00.000+00 :00 - Completed hydrochlorothiazide 12.5 MG Oral Tablet 1033-53-25L89:00:00.000+00 :00 - Completed duloxetine 60 MG Delayed Rel ease Oral Capsule 1136-91-08K52:00:00.000+00 :00 - Completed fluconazole 150 MG Oral Tablet 2 119-88-35P25:00:00.000+00 :00 - Completed duloxetine 30 MG Delayed Rel ease Oral Capsule 4318-25-08Y91:00:00.000+00 :00 - Completed hydrochlorothiazide 12.5 MG Oral Tablet 5418-92-23O59:00:00.000+00 :00 - Completed cefdinir 300 MG Oral Capsule 11-04-06:00:00.000+00 :00 - Completed montelukast 10 MG Oral Tablet 25-08-14:00:00.000+00 :00 - Completed duloxetine 30 MG Delayed Rel ease Oral Capsule 1608-24-35A33:00:00.000+00 :00 - Completed duloxetine 60 MG Delayed Rel ease Oral Capsule 6913-21-75I11:00:00.000+00 :00 - Completed fluconazole 150 MG Oral Tablet 2 116-73-70T73:00:00.000+00 :00 - Completed montelukast 10 MG Oral Tablet 20 25-02-12:00:00.000+00 :00 - Completed meloxicam 7.5 MG Oral Tablet 202 10-15-22:00:00.000+00 :00 - Completed {6 (azithromycin 250 MG Oral Tablet) } Pack 3355-16-49F91:00:00.000+00 :00 - Completed celecoxib 200 MG Oral Capsule 20 24-11-13:00:00.000+00 :00 - Completed hydrochlorothiazide 12.5 MG Oral Tablet 4036-54-69G71:00:00.000+00 :00 - Completed hydrochlorothiazide 12.5 MG Oral Tablet 6282-27-08I96:00:00.000+00 :00 - Completed fluconazole 150 MG Oral Tablet 2 883-39-34F38:00:00.000+00 :00 - Completed montelukast 10 MG Oral Tablet 20 24-11-13:00:00.000+00 :00 - Completed fluconazole 150 MG Oral Tablet 2 938-37-72G17:00:00.000+00 :00 - Completed fluconazole 150 MG Oral Tablet 2 017-55-91B82:00:00.000+00 :00 - Completed duloxetine 60 MG Delayed Rel ease Oral Capsule 2263-84-36F44:00:00.000+00 :00 - Completed duloxetine 60 MG Delayed Rel ease Oral Capsule 3419-63-97T20:00:00.000+00 :00 - Completed montelukast 10 MG Oral Tablet 20 26-05-07:00:00.000+00 :00 - Completed duloxetine 30 MG Delayed Rel ease Oral Capsule 3448-49-73E47:00:00.000+00 :00 - Completed meloxicam 7.5 MG Oral Tablet 202 10-12-21:00:00.000+00 :00 - Completed {21 (methylprednisolone 4 MG Oral Tablet) } Pack 6794-64-69Y55:00:00.000+00 :00 - Completed fluconazole 150 MG Oral Tablet 2 130-46-87J70:00:00.000+00 :00 - Completed celecoxib 200 MG Oral Capsule 27-10-13T00:00:00.000+00 :00 - Completed Patient Care team information Name Category Status Period Participants - - Proposed period not known -
--- OUTSIDE RECORDS SUMMARY | 2025-02-27 15:42 | XMS_ITS | Clinical Summary ---
Author Organization [facility] Address [address] [place] [address] Phone Care Team Providers Care Steam Meter Reader Name Role Phone Jay Jay Deutsch MD Primary Care Provider [phone] Allergies Active Allergy Reactions Criticality Noted Date [...] (05/17/2023): Added automatically from request for surgery [id number] Acute pain of left shoulder 02/03/2023 Localized osteoarthritis of left shoulder 2022 Overview (11/22/2022): Added automatically from request for surgery [id number] May-Thurner syndrome 07/09/2020 Symptomatic varicose veins of right lower extrem ity 03/29/2019 Overview (03/29/2019): Added automatically from request for surgery [id number] Venous insufficiency of both lower extremities 0 02/08/2019 Varicose veins of bilateral lower extremities with other complications 02/08/2019 Pain in both lower extremities 02/08/2019 Edema of right lower extremity 02/08/2019 Bacterial vaginitis 01/18/2010 Rash 01/18/2010 Encounters Date Type Department Care Team Description 02/24/2025 Travel 02/21/2025 Orders Only [address] [address] Jay Jay Hanks MD Primary osteoarthritis of left knee (Primary Dx) 02/21/2025 [facility] [address] Jay Jay Hanks MD 02/20/2025 [facility]phone [facility] [address] [address] Jay Jay Hanks MD 02/19/2025 11:00 AM EDT Office Visit [facility] [address] [facility] [address] [place] [address] Jay Jay Hanks MD Primary osteoarthritis of left knee (Primary Dx) 02/19/2025 Telephone [facility] [address] [address] Jay Jay Hanks MD 02/12/[address] [address] Gumaro Myles MD from Last 3 Months [...] Surgeon: Gumaro Myles MD; Location: [facility] MA[facility] OR; Service: Orthopedics GLOSSECTOMY 09/04/2016 - 09/03/2017 partial BREAST REDUCTION SURGERY 09/04/2016 - 09/03/2017 LYMPH NODE DISSECTION pt states she had 46 lymph nodes removed from her neck area LASIK KNEE ARTHROSCOPY 11/29/2018 Right RIGHT KNEE ARTHROSCOPY PARTIAL MEDIAL MENISCECTOMY AND CHONDROPLASTY; Surgeon: Gumaro Myles MD; Location: [facility]; Service: Orthopedics VARICOSE VEIN SURGERY 05/03/2019 Right Radiofrequency ablation right greater saphenous vein ; Surgeon: Omar Garcia DO; Location: [facility] MAIN OR; Service: Vascular ANKLE SURGERY 04/27/2020 Right soft tissue mass removed-[facility] SHOULDER ARTHROPLASTY 06/01/2020 Shoulder/Right RIGHT TOTAL SHOULDER ARTHROPLASTY BICEPS TENODESIS; Surgeon: Kojo Brown MD; Location: [facility] MAIN OR; Service: Orthopedics Medical [...] BICEPS TENODESIS; Surgeon: Florencio Brown MD; Location: [facility] MAIN OR; Service: Orthopedics Medical devices from this surgery are in the Medical Devices section. ULNAR TUNNEL RELEASE 06/07/2023 Arm/Elbow/Left Left Cubital Tunnel Release, transposition; Surgeon: Asim Schaeffer MD; Location: [facility]; Service: Orthopedics KNEE ARTHROSCOPY 07/11/2024 Knee/Left Left knee arthroscopic partial medial meniscectomy with arthroscopic chondroplasty; Surgeon: Gumaro Myles MD; Location: [facility]; Service: Orthopedics Medical History Medical History [...] Info) Description 03/05/2025 6:45 AM EDT Appointment [place] [address] [place] [address] 03/05/2025 8:15 AM EDT Clinical Support [facility] [address] [facility] [address] [place] [address] 03/06/2025 10:35 AM EDT Hospital En[facility] [address] [place] [address] Jay Jay Hanks MD [address] [place] [address] 03/06/2025 10:35 AM EDT Anesthesia [place] [address] Michelet Cheema MD [address] [facility] [address] [facility] [place] [address] 03/06/2025 10:35 AM EDT - 03/06/2025 11:50 AM EDT [facility] [address] [place], [place] [id number] Jay Jay Hanks MD [address] [place] [address] TOTAL KNEE REPLACEMENT ROBOTIC ASSISTED-MIRIAM 03/13/2025 12:00 PM EDT Office Visit [facility] [address] [facility] [address] [place] [address] Stan Mcmahon, PHILLIP 03/19/2025 9:15 AM EDT Office Visit [facility] [address] [facility] [address] [place] [address] Brandi Wyman APRN [address] [place] [address] Scheduled Procedures Name Priority Associated Diagnoses Date/Ti [...] Additional history exists Breast Cancer Screening 04/22/2026 04/22/20, 04/13/2023, 03/08/2022, Additional history exists DTaP/TDaP/Td (2 - Td or Tdap) 05/08/2030 05/08/2020, 04/19/2001 Hepatitis B Vaccine Completed 12/07/1995, 06/29/1995, 05/31/1995 Meningococcal B Vaccine Aged Out No l onger eligible based on patient's age to complete this topic Medical Devices Implanted Type Area Roto Mixer Operator Device Identifier Shelf Expiration Date Model / Serial / Lot Back Hardware Cement Bn Refobacin St Latex Free Disposable - [id number] Implanted:Qty : 1 on 06/01/2020 by Florencio Brown MD at [facility] Right: Shoulder AINSLEY:AINSLEY 01/01/2022 [id number] / / [id number] Glenoid Self-Pressuri zing Size 44 - [id number] Implanted:Qty : 1 on 06/01/2020 by Florencio Brown MD at [facility] Right: Shoulder JALEEL:ORTHOPE DICS [id number] 09/03/2024 5542-P-0044 / / [id number] Stem Pressfit Humeral Reunion 9mm X 93mm - [id number] Implanted:Qty : 1 on 06/01/2020 by Florencio Brown MD at [facility] Right: Shoulder JALEEL:ORTHOPE DICS [id number] 12/31/2023 5567-P-3009 / / [id number] Head Humeral Radius Single Size 48 15mm Thkns - [id number] Implanted:Qty : 1 on 06/01/2020 by Florencio Brown MD at [facility] Right: Shoulder JALEEL:ORTHOPE DICS [id number] 06/30/2024 5552-E-4815 / / [id number] Cement Refobacin 1x40 Gm Hvisc Bn Gent Lf - [id number] Implanted:Qty : 1 on 01/23/2023 by Florencio Brown MD at [facility] Left: Shoulder AINSLEY:AINSLEY 03/03/2025 [id number] / / [id number] Head Hum 44mm Std 16mm Reunion Sgl Rad - [id number] Implanted:Qty : 1 on 01/23/2023 by Florencio Brown MD at [facility] Left: Shoulder JALEEL:ORTHOPE DICS [id number] 01/26/2026 5552-S-4416 / / [id number] Stem Pressfit Humeral Reunion 8mm X 92mm - [id number] Implanted:Qty : 1 on 01/23/2023 by Florencio Brown MD at [facility] Left: Shoulder JALEEL:ORTHOPE DICS [id number] 09/22/2024 5567-P-3008 / / [id number] Procedures Procedure Name Priority Date/Time Associated Diagnosis [...] EDT Impressions 04/23/2024 8:50 AM EDT Negative (FTK-Pldsoqkb-0) RECOMMENDATION: Routine Screening Mammogram in 1 Year COMMENTS: Narrative 04/23/2024 8:50 AM EDT EXAM: MM MAMMO DIGITAL ARCHANA SCREEN BILAT EXAM DATE: 04/22/2024 3:02 PM INDICATION: Z12.31-Encounter for screening mammogram for malignant neoplasm of ugcrrp-NPB-90-CM COMPARISON STUDIES: Compared with prior studies the most recent being 2022 TISSUE DENSITY: There are scattered areas of fibroglandular density. FINDINGS: No mammographic evidence of malignancy. Procedure Note Michael Tobar MD - 04/23/2024 EXAM: MM MAMMO DIGITAL ARCHANA SCREEN BILAT EXAM DATE: 04/22/2024 3:02 PM INDICATION: Z12.31-Encounter for screening mammogram for malignantneoplasm of ruluas-LAD-21-CM COMPARISON STUDIES: Compared with prior studies the most recent [id number] TISSUE DENSITY: There are scattered areas of fibroglandular density. FINDINGS: No mammographic evidence of malignancy. IMPRESSION: Negative (HUD-Rlxpjiar-8) RECOMMENDATION: Routine Screening Mammogram in 1 Year COMMENTS: Dara Gallego HIGH LEAD YARDER IMG MAMMOGRAPHY ORDERABLES Fin al Result from Last 3 Months or Most Recently Relevant to Health Maintenance Insurance ANTHEM PPO ANTHEM PPO [facility] ANTH PPO Advance Directives For more information, please contact: [phone] * Full Code (Latest Code Status on File) Date Activated Date Inactivated Comments 06/01/2020 12:20 PM 06/02/2020 3:40 PM Care Teams Steam Meter Reader Relationship Specialty Start Date End Date Jay Jay Deutsch MD [address] [facility] [address] [place] [address] PCP - General 05/31/11
--- OUTSIDE RECORDS SUMMARY | 2025-02-27 15:42 | XMS_ITS | Encounter Summary ---
Author Organization [facility] Address [address] [place] [address] Phone Care Team Providers Care Senior Dentist Name Role Phone Get NORRIS MD, J Gregory Primary Care Provider + Reason for Referral * - Closed Specialty Diagnoses / Procedures Referred By Contelvira t Referred To Contact Procedures LAB SCAN [facility] [address] [place] [address] Phone: tel: Referral ID Status Reason Start Date Expiration Date Visits Re quested Visits Authorized [id number] Closed 01/25/2012 07/23/2012 1 1 Encounter Details Date Type Department Care Team (Late Contact Info) Description 01/25/2012 SCAN [facility] Medicine [address] [place] [address] Social History Tobacco Use Types [...] Description 07/30/2025 12:00 PM EST [facility] [place] [address] [place] [address] Estrella Ann MD [address] [place] [address] documented as of this encounter Procedures Procedure Name Priority Date/Time Associated Diagnosis Comments LAB SCAN Routine 12/01/2011 documented in this encounter Results * LAB SCAN (12/01/2011) us Historical Med LAB BLOOD ORDERABLES Final Resul t documented in this encounter Visit Diagnoses Not on filedocumented in this encounter Care Teams Senior Dentist Relationship Specialty Start Date End Date Leyla Deutsch MD, MD [facility] [address] [place] [address] PCP - General 04/29/08 documented as of this encounter
--- OUTSIDE RECORDS SUMMARY | 2025-02-27 15:42 | XMS_ITS | Clinical Summary ---
Author Organization [employer] Address [address] [place] [address] Phone Care Team Providers Care Group Product Manager Name Role Phone Get NORRIS, Leyla NORRIS [...] Description 07/30/2025 12:00 PM EST Office Visit [facility] [address] [place] [address] Estrella Ann MD [address] [place], [place] [id number] Health Maintenance Due Date Last Done Comments [...] age to complete this topic Insurance [facility] NOT MEDICARE Care Teams Group Product Manager Relationship Specialty Start Date End Date Leyla Deutsch MD, [address] [place] [address] [address] [address] PCP - General 04/29/08
--- OUTSIDE RECORDS SUMMARY | 2025-02-27 15:42 | XMS_ITS | Data Portability ---
Author Organization [facility] [employer] Address [address] [place] [address] Care Team Providers Care Grating Machine Operator Name Role Phone BLU RHODES Primary Care Provider Assessment Encounter Date Assessment Date Assessment LastModified [...] 250 mg/5 mL oral suspension 2023 024 [facility][id number], [address] [facility], [place], [address], 15:09:26 Patient TargetsNo targets recorded. Patient Instructions Encounter Date Encounter Id Patient Instructions Last Modified By Organization Details Last Modified Time 02/28/2024 [id number] drug allergy: care instructions Not available 02/28/2024 15:08:59 learning about penicillin allergy Not available 02/28/2024 15:08:59 Reason for Referral None Reported. Problems Name Problem SNOMED Code Status Onset Date Resolution Date Notes Provider Name and Address Organization Details Recorded Time [facility] [id number] Active 2023 Doug Centeno MD [address] [place] [address],[address] [place] [address], [phone] , [place] [facility] 14:28:41 Fusion of thoracic spine Active 2023 Doug Centeno MD [address] [place] [address],[address] [place] [address], [phone] , [place] [facility] 14:29:04 Lumbar spinal fusion Active 2023 Doug Centeno MD [address] [place] [address],[address] [place] [address], [phone] , [place] [facility] 14:29:12 History of cervical spine fusion 0678021814206 Active 2023 Doug Centeno MD [address] [place] [address],[address] [place] [address], [phone] , [place] [facility] 14:29:36 Lymphedema 634649353 Active 2023 Doug Centeno MD [address] [place] [address],[address] [place] [address], [phone] , [place] [facility] 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 14:45:39 Problem Notes None [...] 01/06/19 93 Tubal Ligation completed Keely Liliya [facility] 02/28/2024 13:15:33 11/09/18 76 Tonsillectomy completed Keely Liliya [facility] 02/28/2024 13:15:33 11/09/18 76 Adenoid Surgery completed Keely Liliya [facility] 02/28/2024 13:15:33 Imaging Results None recorded. Procedure Notes None recorded. Medical Equipment None Reported. Allergies Allergen ID Allergen Name Allergen Category Reaction Reaction Severity Criticality Documentation Date Start Date Code Code System Note Provider Name and Address Organization Details Recorded Time 58343 Substance with morphinan structure and opioid receptor agonist mechanism of action (substanc e) medicatio n hives swelling moderate moderate Not available 02/28/20242018 24126 9000 SNOMED Keely Liliay null, [facility] 13:15:10 79283 Medicinal product containin g cephalosp jorje and acting as antibacte rial agent (product) medicatio n diarrhea severe Not available 02/28/20241997 51272 9009 SNOMED Keely Liliya null, [facility] 13:15:10 96462 codeine medicatio n hives swelling moderate moderate Not available 02/28/20242018 2670 RxNorm Keely Liliya null, [place] - [facility] 13:15:10 60666 ampicilli n medicatio n rash moderate Not available 02/28/20241973 733 RxNorm Keely Liliya null, [place] - [facility] 13:15:10 68137 clindamyc in Not available rash severe Not available 02/28/20242023 2582 RxNorm Keely Liliya null, [place] - [facility] 13:15:10 14102 adhesive tape environme nt,medica tion rash severe Not available 02/28/20242023 91048 UNK Keely Liliya null, [place] - [facility] 13:15:10 75020 vancomyci n medicatio n rash severe Not available 02/28/20242023 51445 RxNorm Keely Liliya [facility] 13:15:10 Medications Name Sig [...] Last Updated DateTime 157.48 cm 46.2 kg/m2 149362. 43 g 75 /min 20 /min 153 mm[Hg] 76 mm[Hg] Keely [place] [facility] 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 Adverse re action to drug 52528322 T50.905A hx of opiate sensitivit y probably associated with dermatogra phiano anaphylaxi s by historyPla n if needed shoul be able to tolerate oral opiate with antihistam ine pre-medica tion Allergy to penicillin 91 896195 Z88.0 by hx during childhoodP lantest dose schedule Allergy to drug 09355921 2 Z88.9 severe rash assoicated wtih clindamyci n and/or penicillin Planavoid clindamyci n [id number] Doug Centeno MD [address] [place] [phone] 03/06/2024 14:23:56 03/06/2024 16:23:51 Penicillin adverse reaction 940050943 T36.0X5D negative challenge to 375 mg of oral amoxicilli n okay to take penicillin drugs in the futurePlan delabel penicillin allergy from chart Adverse re action to drug 96461500 T50.905A hx of opiate sensitivit y probably [...] Adamson Member ID Guarantor Name 03/05/2024 1 [facility] [id number] Eleonora Hernandez [id number] Eleonora Hernandez Notes Date Note Type Note [...] - Clindamycin and Vancomycin (11/2023) surgery at [facility], also had received an opiate while [...] diarrhea. She has been valuated by an shipping agent in [facility] in 2004, and positive SPT, for 2-[address] Winston (Safety Compliance Specialist) and Dr. Lynn (Safety Compliance Specialist) evaluated previously. Levocetirizine 5 mg once daily for seasonal allergies and PND. Doug Centeno MD [address] [place] [address],[address] [place] [address], [phone], [facility] 02/28/2024 15:09:03 03/06/2024 text/html tolerated amoxic illin challenge without rash or hiveshas hx of opiate induced hiveson xyzal daily and this helps dermatographism Doug Centeno MD [address] [place] [address],[address] [place] [address], [place], [phone], [facility] 03/06/2024 16:21:16 OBGyn Episode No OBEpisode recorded.
--- OUTSIDE RECORDS SUMMARY | 2025-02-27 15:42 | XMS_ITS | Data Portability ---
Author Organization [place] - Sae scott MD, Main Office Address [address] [place] [address] Care Team Providers Care Brand Development Manager Name Role Phone SMITA RHODES Primary Care Provider [phone] Assessment No assessment recorded. Plan of Treatment Reminders Order Date Submit Date Provider Last Modified By Organization Details Last Modified Time Details Appointments None recorded. Lab None recorded. Referral None recorded. Procedures lower extremity nerve conduction study (PROC) 2021 022 Sae Rico MD, [address], [place], [address], 11:41:46 Surgeries None recorded. Imaging MRI, lumbar spine, w/wo contrast - Auth # [id number] 08/17/22-08/26 022 [facility], [address], [place], [address], 08:52:45 Medication Orders None recorded. Patient TargetsNo targets recorded. Patient Instructions Encounter Date Encounter Id Patient Instructions Last Modified By Organization Details Last Modified Time 07/05/2018 [id number] Neck Pain: Care Instructions Not available 07/05/2018 14:42:52 carpal tunnel syndrome: care instructions Not available 07/05/2018 14:42:52 carpal tunnel syndrome: exercises Not available 07/05/2018 14:42:52 10/07/2020 [id number] Numbness and Tingling: Care Instructions Not available 10/07/2020 10:36:47 07/19/2022 [id number] lumbar spinal stenosis: care instructions Not available 07/19/2022 12:37:20 Finding has been discussed with the patient in detail. MRI scan of the lumbar spine with and without contrast. EMG/NCV of both legs. I will see her back in follow-up. Not available 07/19/2022 12:37:43 08/22/2022 [id number] Numbness and Tingling: Care Instructions [email or web address] Not available 08/22/2022 13:23:08 08/22/2022 [id number] Learning About Relief for Back Pain Not [...] record ed. BARCODE Sae Rico MD [address] [facility] [address], [place], [address], 08/22/2022 13:32:46 08/23/20 22 08/22/2022 MRI, lumba r spine , w/wo contr ast No observ ation record ed. [facility] [address], [place], [address], 08/23/2022 10:52:15 Result Notes None recorded. Problems [...] Not Available Not Available No t Available RESOLUTION MANAGER Thyroid 30 mg tablet TAKE 1 TABLET [...] Last Updated DateTime 157.48 cm 36.6 kg/m2 04292.4 7 g 75 /min 16 /min 127 mm[Hg] 76 mm[Hg] Sae Rico MD [facility], [facility] [address] [place] [address], [address] MD 12:32:07 Date Recorded Body height Body mass index (BMI) Body weight Provider Name and Address Organization Details Last Updated DateTime 08/22/2022 157.48 cm 36.6 kg/m2 12281.47 g Sae Rico MD [address], [facility] [address], [place], [address]STEPHANY MD 08/22/2022 11:41:06 Date Recorded Body height [...] Office [address] [place] [address] 07/05/2018 12:51:37 07/05/2018 13:38:17 Carpal tunnel syndrome 43564415 G56.02 Mild left CTS. Cervical radiculopathy 60262778 M54.12 Mild chronic left C5/6 radiculopa thy. [id number] Sae Rico MD Main Office [address] [place] [address] 10/07/2020 08:38:09 10/07/2020 09:43:28 Paresthesia 97113314 R20.2 28100 Sae Rico MD Main Office [address] [place] [address] 07/19/2022 11:17:44 07/19/2022 12:30:44 Spinal stenosis of lumbar region 29213050 M48.062 The patient is a 52-year-ol d white female. She had a history of lumbar spinal fusion. She has recurrent paresthesi a, back pain and bowel control difficulty . Spinal stenosis needed to be excluded. [id number] Sae Rico MD Main Office [address], [facility] [place] [address] [place] [address] 08/22/2022 11:08:14 08/22/2022 11:35:32 Lumbosacral radiculopathy 1257993 M54.17 67296 Sae Rico MD Main Office [address], [facility] [place] [address] [place] [address] 08/22/2022 13:00:39 08/22/2022 13:27:40 Paresthesia 40522954 R20.2 Normal bilateral lower extremitie s. Health Concerns Section Related Observation LastModified by Organization Detai ls LastModified Time None Recorded Concern Status LastModified by Organization Details LastModified Time None Recorded Advance Directives Directive None Recorded Payers Insurance Date Sequence Insurance Name Policy Number Policy Adamson Covered Member ID Adamson Member ID Guarantor Name 08/19/2022 1 [place]) [id number] Eleonora Hernandez [id number] Eleonora Hernandez Notes Date Note Type Note Provider Name a nd Address Organization Details Recorded Time 07/19/2022 text/html Mrs. Hernandez is a 52-year-old white female. 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 She is here today with a several [...] Wegovy for weight loss. Sae Rico MD [address] [facility], [address] [address], [place], [address], [facility] - Sae Rico MD 07/19/2022 12:38:13 OBGyn Episode No OBEpisode recorded.
--- OUTSIDE RECORDS SUMMARY | 2025-02-27 15:42 | XMS_ITS | Encounter Summary ---
Author Organization [facility] Address [address] [place] [address] Care Team Providers Care Mortgage Professional Name Role Phone Jay Jay Deutsch MD Primary Care Provider [phone] Encounter Details Date Type Department Care Team (Late st Contact Info) Description 02/19/2025 Telephone [facility] [address] [place] [id number] Jay Jay Hanks MD [address] [place] [address] Social History Tobacco Use Types Packs/Day Years [...] Info) Description 03/05/2025 6:45 AM EDT Appointment [place] [address] [place] [address] 03/05/2025 8:15 AM EDT Clinical Support [facility] [address] [address] 03/06/2025 10:35 AM EDT Hospital En[facility] [address] [place] [address] Jay Jay Hanks MD [address] [place] [address] 03/06/2025 10:35 AM EDT Anesthesia [place] [address] Michelet Cheema MD [facility] [place] [address] 03/06/2025 10:35 AM EDT - 03/06/2025 11:50 AM EDT Surgery [place] [address] Jay Jay Hanks MD [address] [place] [address] TOTAL KNEE REPLACEMENT ROBOTIC ASSISTED-MIRIAM 03/13/2025 12:00 PM EDT Office Visit [facility] [address] [facility] [address] [place] [address] Stan Mcmahon, PHILLIP 03/19/2025 9:15 AM EDT Office Visit [facility] [address] [address] Brandi Wyman APRN [address] [place] [address] Scheduled Procedures Name Priority Associated Diagnoses Date/Ti me TOTAL KNEE REPLACEMENT ROBOTIC ASSISTED-MIRIAM Primary osteoarthritis of left knee 03/06/2025 10:35 AM EDT documented as of this encounter Visit Diagnoses Not on filedocumented in this encounter Care Teams Mortgage Professional Relationship Specialty Start Date End Date Jay Jay Deutsch MD [address] [facility] [address] [place] [address] PCP - General 05/31/11 documented as of this encounter
--- OUTSIDE RECORDS SUMMARY | 2025-02-27 15:43 | XMS_ITS | Patient Health Record ---
Author Organization [facility] Address [address] [place] [id number] Care Team Providers Care Metal Leaf Layer Name Role Phone Sanjiv Everett Primary Care Provider Leyla Deutsch Unavailable [phone] [place] Unavailable [phone] Brandee Ceron Unavailable [phone] Allergies Allergen (clinical drug ingredient) Drug/Non Drug [...] Normal Performing Lab: Notes/Report: Test performed by [facility] [address] [place] [address] , [address], [place] [address] Joe Esteban MD, [employer] CLIA: [id number] Sodium 141 135-145 mmol/L Potassium 5.1 3.5-5.3 mmol/L Chloride 103 97-108 mmol/L CO2 26 22-32 mmol/L Glucose 83 65-99 mg/dL BUN 16 6-20 mg/dL Creatinine 0.72 0.50-1.00 mg/dL Calcium 9.4 8.6-10.4 mg/dL eGFR by Creatinine 98 >59 mL/min/1.73m2 P-Vitamin D 25-Hydroxy Reviewed date:01/30/2025 08:38:44 AM Interpretation:39.8 Performing Lab: Notes/Report: Test performed by [facility] [address] [place] [address] , [address], [place] [address] Joe Esteban MD, [employer] CLIA: [id number] Vitamin D 25-Hydroxy 39.8 30.0-100.0 ng/mL Interpretation [...] Interpretation: Performing Lab: Notes/Report: Test performed by [facility] [address] [place] [address] , [place] [address] Joe Esteban MD, [employer] CLIA: [id number] Sodium 142 135-145 mmol/L Potassium 4.3 3.5-5.3 mmol/L Chloride 104 97-108 mmol/L CO2 26 20-32 mmol/L Glucose 94 65-99 mg/dL BUN 20 6-20 mg/dL Creatinine 0.71 0.50-1.00 mg/dL Calcium 9.2 8.6-10.4 mg/dL eGFR by Creatinine 100 >59 mL/min/1.73m2 P-TSH reflex to FT4 (Not yet reviewed by provider) Interpretation: Performing Lab: Notes/Report: Test performed by [facility] [address] [place] [address] , [address], [place] [address] Joe Esteban MD, [employer] CLIA: [id number] TSH reflex to FT4 1.50 0.43-5.25 mU/L CBC Fingerstick (in house) Reviewed [...] - 38 plat 235 100 - 400 CBC Fingerstick (in house) Reviewed date:01/29/2025 03:39:54 [...] - 38 plat 339 100 - 400 CBC Fingerstick (in house) Reviewed date:05/08/2024 03:16:07 [...] - 38 plat 323 100 - 400 TEN-UTI panel Reviewed date:04/15/2024 10:31:58 AM Interpretation:Negative Performing Lab: Notes/Report: Negative Urinalysis - Inhouse Reviewed date:04/12/2024 09:35:46 AM Interpretation: Performing Lab: Notes/Report: Color/Clarity yellow/clear Leuk neg Nitrite neg Urobili 3.2 Protein neg pH 5.5 Blood trace-lysed Sp. Gr. 1.020 Ketone neg Bili neg Gluc neg Glycohemoglobin A1c (in hous e) Reviewed date:03/11/2024 09:17:52 AM Interpretation: Performing Lab: Notes/Report: glycohemoglobin 5.5% 5 - 6.5 % X ray : Spine, thoracic spin e Reviewed date:05/27/2024 10:39:05 AM Interpretation:nothing acute, fusion, osteopenia Performing Lab: Notes/Report: nothing acute, fusion, osteopenia CBC Fingerstick (in house) Reviewed date:10/02/2024 12:19:57 [...] 271 100 - 400 X ray : Chest Reviewed date:10/12/2024 10:27:47 AM Interpretation:Negative Performing Lab: Notes/Report: Negative X ray : Rib series, left Reviewed date:10/12/2024 10:27:48 AM Interpretation:Negative Performing Lab: Notes/Report: Negative CBC Fingerstick (in house) Reviewed date:09/23/2024 12:35:38 [...] - 38 plat 271 100 - 400 CBC Fingerstick (in house) Reviewed date:10/10/2024 09:15:19 [...] - 38 plat 240 100 - 400 CBC Venipuncture (in house) Reviewed date:12/31/2024 08:11:00 [...] 117 Performing Lab: Notes/Report: Test performed by [facility] [address] , [address], [place] [address] Joe Esteban MD, [employer] CLIA: [id number] Sodium 142 135-145 mmol/L Potassium 4.8 3.5-5.3 [...] Interpretation:Normal Performing Lab: Notes/Report: Test performed by [facility] [address] [place] [address] [address], [place] [address] Joe Esteban MD, [employer] CLIA: [id number] TSH reflex to FT4 1.35 0.43-5.25 mU/L Medications Medication SIG (Take, Route, Frequency, Duration) [...] DAY FOR 30 DAYS; Duration: 30 Active Synthroid 50 MCG 1 tab(s) orally once a day, except Sun Active Pregabalin 75 MG 1 capsule Orally Thr ee times a day; Duration: 30 day(s) 02/12/2025 Active Vitamin D3 125 [...] Problem Status W/U Status Risk Notes Problem Information temporarily unavailable History of pulmonary embolism (Z86.711) Active confirmed Problem Information temporarily unavailable Hypothyroidism (acquired) (E03.9) Active confirmed Problem Information temporarily unavailable Vitamin D deficiency (E55.9) Active confirmed Problem Information temporarily unavailable Otitis externa (H60.90) Active confirmed Problem Information temporarily unavailable Constipation (K59.00) Active confirmed Problem Information temporarily unavailable Venous insufficiency (I87.2) Active confirmed Problem Information temporarily unavailable Pain in thoracic spine (M54.6) Active confirmed Problem Information temporarily unavailable Depression with anxiety (F41.8) Active confirmed Problem Information temporarily unavailable Localized edema (R60.0) Active confirmed Problem Information temporarily unavailable Other chronic pain (G89.29) Active confirmed Problem Information temporarily unavailable Irritable bowel syndrome with diarrhea (K58.0) Active confirmed Problem Information temporarily unavailable Degenerative disc disease, cervical (M50.30) Active confirmed Problem Information temporarily unavailable Other chronic pain (G89.29) Active confirmed Problem Information temporarily unavailable Neck pain (M54.2) Active confirmed Problem Information temporarily unavailable BMI 38.0-38.9,adult (Z68.38) Active confirmed Problem Information temporarily unavailable Dysphagia, unspecified type (R13.10) Active confirmed Problem Information temporarily unavailable Large breasts (N62) Active confirmed Problem Information temporarily unavailable Carpal tunnel syndrome of left wrist (G56.02) Active confirmed Problem Information temporarily unavailable BMI 37.0-37.9, adult (Z68.37) Active confirmed Problem Information temporarily unavailable Seasonal allergic rhinitis due to pollen (J30.1) Active confirmed Problem Information temporarily unavailable Paresthesia of left upper extremity (R20.2) Active confirmed Problem Information temporarily unavailable Cardiac dysrhythmia, unspecified (I49.9) Active confirmed Problem Information temporarily unavailable Obesity (BMI 35.0-39.9 without comorbidity) (E66.9) Active confirmed Problem Information temporarily unavailable Fibromyalgia affecting multiple sites (M79.7) Active confirmed Problem Information temporarily unavailable Primary osteoarthritis of left shoulder (M19.012) Active confirmed Problem Information temporarily unavailable Allergic rhinitis, unspecified chronicity, unspecified seasonality, unspecified trigger (J30.9) Active confirmed Problem Information temporarily unavailable Ventricular ectopy (I49.3) Active confirmed Problem Information temporarily unavailable Arthritis of left knee (M17.12) Active confirmed Problem Information temporarily unavailable Fibrocystic breast disease (FCBD), unspecified laterality (N60.19) Active confirmed Problem Information temporarily unavailable Esophageal dysphagia (R13.10) Active confirmed Problem Information temporarily unavailable Thyroid lesion (E07.89) Active confirmed Problem Information temporarily unavailable Acute asthmatic bronchitis (J45.909) Active confirmed Problem Information temporarily unavailable Pulmonary embolism without acute cor pulmonale, unspecified chronicity, unspecified pulmonary embolism type (I26.99) Active confirmed Problem Information temporarily unavailable 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) Active confirmed Problem Information temporarily unavailable Hx of tongue cancer (Z85.810) Active confirmed Vital Signs Heart Rate 65 /min 02/26/2025 Blood pressure diastolic 60 mm Hg 02/26/2025 Height 62 in 02/26/2025 Blood pressure systolic 100 mm Hg 02/26/2025 Weight 264 lbs 02/26/2025 BMI 48.28 kg/m2 02/26/2025 Encounters Encounter Location Date Provider Diagnosis [facility] [address] [place] [id number] 03/08/2024 Sanjiv Humboldt Pulmonary embolism without acute cor pulmonale, unspecified chronicity, unspecified pulmonary embolism type I26.99 and Hyperglycemia R73.9 [facility] [address] [place] [id number] 03/19/2024 Sanjiv Humboldt Pain in left knee M25.562 ; Preop examination Z01.818 ; Arthritis of left knee M17.12 ; Other tear of meniscus of left knee, unspecified meniscus, unspecified whether old or current tear, initial encounter S83.204A and Bilateral pulmonary embolism I26.99 [facility] [address] [place], [place] [id number] 04/02/2024 Sanjiv Humboldt Encounter for immunization Z23 [facility] [address] [place] [id number] 04/12/2024 Sanjiv Humboldt Acute vaginitis N76. 0 ; Microscopic hematuria R31.29 and Encounter for immunization Z23 [facility] [address] [place] [id number] 05/08/2024 Brandee Ceron Acute otitis media w ith effusion of right ear H65.191 ; Dizziness R42 and Pain of right middle finger M79.644 [facility] [address] [place], [place] [id number] 05/24/2024 Sanjiv Humboldt Pain in left knee M25.562 ; Other chronic pain G89.29 ; Acute left ankle pain M25.572 ; Pain in thoracic spine M54.6 ; Polyarthralgia M25.50 and Dysphonia R49.0 [facility] [address] [place], [place] [id number] 06/14/2024 Sanjiv Humboldt Pain in left knee M25.562 ; Pain in thoracic spine M54.6 ; History of pulmonary embolism Z86.711 and IFG (impaired fasting glucose) R73.01 [facility] [address] [place], [place] [id number] 07/02/2024 Sanjiv Humboldt Otalgia, left ear H92.02 ; Acute rhinitis J00 and Encounter for vaccination Z23 [facility] [address] [place], [place] [id number] 09/23/2024 Sanjiv Humboldt Acute URI J06.9 [facility] [address] [place], [place] [id number] 10/02/2024 Sanjiv Humboldt Bronchitis J40 [facility] [address] [place], [place] [id number] 10/09/2024 Sanjiv Humboldt Bronchitis J40 ; Left-sided chest wall pain R07.89 and Rash R21 [facility] [address] [place], [place] [id number] 11/25/2024 [place] Otitis externa H60.9 0 [facility] [address] [place], [place] [id number] 12/30/2024 Sanjiv Humboldt Peripheral edema R60 .0 and Neck pain M54.2 [facility] [address] [place], [place] [id number] 01/23/2025 Brandee Crowdy Swelling R60.9 [facility] [address] [place], [place] [id number] 01/28/2025 Sanjiv Humboldt Peripheral edema R60 .0 ; Vitamin D deficiency E55.9 ; IFG (impaired fasting glucose) R73.01 and Acute URI J06.9 [facility] [address] [place], [place] [id number] 02/26/2025 Sanjiv Humboldt Pre-op exam Z01.818 ; Pain in left knee M25.562 ; Arthritis of left knee M17.12 and Peripheral edema R60.0 [facility] [address] [place], [place] [id number] 03/14/2024 Sanjiv Humboldt [facility] [address] [place], [place] [id number] 05/24/2024 Sanjiv Humboldt Fibromyalgia affecti ng multiple sites M79.7 [facility] [address] [place], [place] [id number] 05/27/2024 Sanjiv Humboldt [facility] [address] [place], [place] [id number] 09/02/2024 Sanjiv Humboldt [facility] [address] [place], [place] [id number] 10/12/2024 Sanjiv Humboldt Fibromyalgia affecti ng multiple sites M79.7 [facility] [address] [place], [place] [id number] 01/02/2025 Sanjiv Humboldt [facility] [address] [place], [place] [id number] 01/30/2025 Sanjiv Humboldt [facility] [address] [place], [place] [id number] 02/12/2025 Sanjiv Humboldt Fibromyalgia affecti ng multiple sites M79.7 [facility] [address] [place], [place] [id number] 02/27/2025 Sanjiv Humboldt Preop examination Z01.818 and Abnormal EKG R94.31 [facility] [address] [place], [place] [id number] 02/21/2025 Leyla Deutsch Assessments Encounter Date Diagnosis [...] - J06.9) 10/02/2024 Bronchitis (ICD-10 - J40) 02/27/2025 Preop examination (ICD-10 - Z01.818) 02/27/2025 Abnormal EKG (ICD-10 - R94.31) 10/09/2024 Rash (ICD-10 - R21) Patient seems to have a sun burn 02/26/2025 Arthritis of left knee (ICD-10 - M17.12) 01/28/2025 IFG (impaired fasting glucose) (ICD-10 - R73.01) 07/02/2024 Encounter for vaccination (ICD-10 - Z23) [...] : Sinuses, without contrast 01/03 EKG 02/26/2025 EKG 02/27/2025 CXR 02/26/2025 CBC Venipuncture (in house) 02/26/2025 Glycohemoglobin A1c (in house) Mammogram 10/25/2021 CT Scan : Chest w/ & w/o contrast 2023 CT scan : Neck soft tissue with contrast 01/22/2024 P-Basic Metabolic Panel (BMP) 02/26/2025 P-TSH reflex to FT4 02/26/2025 Next Appt Details Provider Name:Sanjiv Khan ry, 04/28/2025 05:30:00 PM, [address], [place], [place], [id number], Insurance Providers Payer Name Payer Address Payer Phone Subscriber Number Group Number Insured Name Patient Relationship to Insured Coverage Start Date Coverage End Date [employer] [address] [place] [address] [id number] Eleonora Hernandez Self - patient is [...] Neck Node Dissection 2016 Neck Needle Biopsy, [facility], Negative 12/15 Colonoscopy, Negative, Dr. Kaba, recom mended 10yr f/u 03/20/2018 Vein Ablasion 05/03/2019 RT Shoulder Replacment 06/01/2020 Cervical Spine Diskectomies and Fusion C 3, C4, C5, C6 08/19/2021 Right Great Toe Bunion Surgery - Dr. 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
--- NOTE | 2025-02-27 15:47 | ECG_ITS ---
APPROVED REPORT Exam: Resting ECG HR:69 bpm ECG Measurements Heart Rate 69 AXES AZ 142 P 50 QRSd 102 QRS 6 QT 407 T 32 QTc 425 Conclusion SINUS RHYTHM NORMAL ECG UNCONFIRMED REPORT Electronically signed by : Juancarlos Arriola MD 03/01/2025 07:52:08
== END 2025-02-27 23:59 | disposition home or self-care (01) ==
LOC: RT 15:39
PROVIDERS: PCP Family Medicine; Visit Provider Family Medicine
DX: Z01.810 Encounter for preprocedural cardiovascular examination (principal); R94.31 Abnormal electrocardiogram [ECG] [EKG]
CPT/HCPCS: 93005